=== PATIENT | female | born 1975 | race Caucasian/White ===

== ENCOUNTER 2023-03-05 20:22 | Emergency (ER) | payer OTHER, SELFPAY ==
[2023-03-05 20:25] VITALS: BP 179/99; PULSE 95; RESP 18; TEMP 36.8; O2SAT 97; BMI 48.1
--- NOTE | 2023-03-05 20:45 | CT_ITS ---
The [address] [address] Patient Name: KONSTANTIN ROBLES MRN: [id number] date: 1975 Sex: F Assigned Patient Location: ER Current Patient Location: ER Accession/Order Number: [id number] Exam Date: 03/05/2023 20:55 Report Date: 03/05/2023 21:30 At the request of: REENA SHELL Procedure: CT abdomen pelvis wo con CT ABDOMEN/PELVIS WITHOUT IV CONTRAST. INDICATION: low back pain/ UTI/ hematuria COMPARISON: There are no other studies available for comparison. TECHNIQUE: Contiguous axial images were obtained from the lung bases to the pelvic floor without intravenous or oral contrast. Coronal and sagittal reformations are provided. FINDINGS: LOWER LUNGS: Clear. LIVER/BILIARY TREE: No discrete lesion. No intrahepatic ductal dilatation. GALLBLADDER: Status post cholecystectomy. CBD: Normal CBD. SPLEEN: Normal in size. PANCREAS: No appreciable peripancreatic fluid. No pancreatic ductal dilatation. No discrete lesion. ADRENALS: Normal. KIDNEYS: No hydronephrosis. No radiopaque calculus. There is a phlebolith in the left hemipelvis posterior to the left UVJ. There is also a phlebolith anterior to the distal left ureter. STOMACH AND BOWEL: There is a small hiatal hernia. No dilated bowel loops. No bowel wall thickening. APPENDIX: Not visualized. PERITONEAL CAVITY: No fluid. There is mild stranding surrounding the urinary bladder. ABDOMINAL WALL: No subcutaneous stranding. No subcutaneous fluid collection. LYMPH NODES: No mesenteric or retroperitoneal lymphadenopathy by CT criteria. ABDOMINAL AORTA: No aneurysm. PELVIS: Decompressed bladder which appears thickened. There is stranding surrounding the bladder. MUSCULOSKELETAL: No acute osseous abnormality. CT/CT abdomen pelvis wo con IMPRESSION: 1. No obstructive uropathy. 2. Findings are suggestive of cystitis. Correlate clinically. Electronically authenticated by: YOUNG CERDA Date: 03/05/2023 21:30
--- NOTE | 2023-03-05 20:47 | ED_ITS ---
Documented by User: REGINO Velasquez 03/05/23 20:56 HPI - General Adult General Chief complaint: Urogenital-Female Stated complaint: POSS UTI/BACK PAIN Time Seen by Provider: 03/05/23 20:23 Source: patient Mode of arrival: walk-in Limitations: no limitations History of Present Illness HPI narrative: Patient is a 47-year-old female presents to the Emergency Room with concerns of urinary tract infection and onset of low back pain. Patient notes symptoms started 3-4 days ago with urgency and discomfort with urination, she initially attributed symptoms to change in her brand of underwear. She denies external rash. States she's had irregular periods for the past several months as she feels she is approaching menopause. Patient presents this evening with concerns of not feeling well and having low back pain is described as a pulsing into her flanks 02/08. She denies any fever or chills. She has not vomited. Patient states her blood pressure goes up with the pain and correlates the discomfort with labor pains. She denies any diarrhea. She reports her current vaginal bleeding is light compared to her normal periods. Previously scheduled for hysterectomy before [facility], but was laid off work. Radiation: Reports back and flank Severity: moderate Quality: Reports aching and constant Pain Consistency: Reports colicky Relieving factors: Reports none Exacerbating factors: Reports movement Associated symptoms: Reports denies other symptoms; Denies nausea/vomiting (+ Decreased appetite) Treatments prior to arrival: Reports other (AZO) Related Data Previous Rx's Medication Instructions Recorded cephalexin 500 mg capsule 500 mg PO TID 7 days #21 caps 03/05/23 Allergies Allergy/AdvReac Type Severity Reaction Status Date / Time vancomycin Allergy Severe Verified 03/05/23 20:29 ciprofloxacin [From Cipro] Allergy Intermediate Verified 03/05/23 20:29 Review of Systems ROS Constitutional Denies: fever or chills Eyes Denies: change in vision Ears, nose, mouth, and throat Denies: throat pain or neck pain Cardiovascular Denies: chest pain Respiratory Reports: shortness of breath (with back pain); Denies: cough or wheezing Gastrointestinal Denies: abdominal pain or nausea Genitourinary Reports: painful urination, urinary frequency, urinary urgency and vaginal bleeding Musculoskeletal Reports: back pain; Denies: neck pain or extremity pain Integumentary/Breast Denies: rash, itching, redness or skin pain Neurological Denies: headache Psychiatric Denies: anxiety or mood swings Hematologic/Lymphatic Denies: easy bruising Exam Narrative Exam Narrative: Nurses notes and vital signs reviewed and patient is not hypoxic. General: The patient appears well and in no apparent distress. + anxious about symptoms Patient is resting comfortably on cart. Skin: Warm, dry, no pallor noted. Head: Normocephalic, atraumatic Neck: Supple, trachea mid-line, no tenderness, no lymphadenopathy Eye: Pupils are equal, round and reactive to light, EOMI Ears, Nose, Mouth, and Throat: external exam unremarkable Cardiovascular: Regular Rate and Rhythm Respiratory: Patient is in no distress, no accessory muscle use, lungs are clear to auscultation, no wheezing, rales or rhonchi. Chest Wall: no tenderness Back: non-tender to mid line L spine and T- spine,+ CVA tenderness + pain in bilateral flanks Musculoskeletal: normal ROM, no tenderness, no swelling GI: Normal bowel sounds, no tenderness to palpation, no masses appreciated. No prominent pulsation. No rebound, guarding, or rigidity noted. Neurological: A&O x4 Psychiatric: Cooperative Constitutional Vital Signs, click to edit/add: Last Vital Signs Temp 98.2 F 03/05/23 20:25 Pulse 95 H 03/05/23 20:25 Resp 18 03/05/23 20:25 BP 142/92 H 03/05/23 22:34 Pulse Ox 97 03/05/23 20:25 O2 Del Method Room Air 03/05/23 20:25 Course Vital Signs Vital signs: Vital Signs Temperature 98.2 F 03/05/23 20:25 Pulse Rate 95 H 03/05/23 20:25 Respiratory Rate 18 03/05/23 20:25 Blood Pressure 179/99 H 03/05/23 20:25 Pulse Oximetry 97 03/05/23 20:25 Oxygen Delivery Method Room Air 03/05/23 20:25 Temperature 98.2 F 03/05/23 20:25 Pulse Rate 95 H 03/05/23 20:25 Respiratory Rate 18 03/05/23 20:25 Blood Pressure 142/92 H 03/05/23 22:34 Pulse Oximetry 97 03/05/23 20:25 Oxygen Delivery Method Room Air 03/05/23 20:25 Medical Decision Making MDM Narrative Medical decision making narrative: Extensive discussion at bedside regarding urinary tract infection versus pyelonephritis versus kidney stone ( constipation less likely). Patient reports never having back pain like this in the past. We discussed indications for CT with hematuria, her urine is discolored from Azo use. Patient agreeable to IV placement and fluids and medication for pain. Lab Data Labs: Lab Results 03/05/23 03/05/23 Range/Units 08:40 20:55 WBC 8.2 (4.0-11.0) 10^3/uL RBC 4.45 (4.20-5.40) 10^6/uL Hgb 11.5 L (12.0-16.0) g/dL Hct 36.0 (36.0-48.0) % MCV 80.9 L (81.0-99.0) fL MCH 25.8 L (26.7-34.0) pg MCHC 31.9 (29.9-35.2) g/dL RDW 17.3 H (11.0-15.0) % Plt Count 360 (150-450) 10^3/uL MPV 9.2 L (9.5-13.5) fL Neut % (Auto) 68.8 (43.0-75.0) % Lymph % (Auto) 22.9 (20.5-60.0) % [place] % (Auto) 5.8 (1.7-12.0) % Eos % (Auto) 1.5 (0.9-7.0) % Baso % (Auto) 0.6 (0.2-2.0) % Neut # (Auto) 5.7 (1.4-6.5) 10^3/uL Lymph # (Auto) 1.9 (1.2-3.8) 10^3/uL [place] # (Auto) 0.5 (0.3-0.8) 10^3/uL Eos # (Auto) 0.1 (0.0-0.7) 10^3/uL Baso # (Auto) 0.1 (0.0-0.1) 10^3/uL Abs Immat Gran (auto) 0.03 (0.00-0.03) 10^3/uL Imm/Tot Granulo (auto) 0.4 (0.0-0.5) % Sodium 144 (136-145) mmol/L Potassium 3.7 (3.5-5.1) mmol/L Chloride 105 (98-107) mmol/L Carbon Dioxide 29.4 (21.0-32.0) mmol/L Anion Gap 13.3 BUN 15.0 (7.0-18.0) mg/dL Creatinine 1.22 H (0.55-1.02) mg/dL Est GFR ( Amer) 57 L (>=60) Est GFR (Non-Af Amer) 47 L (>=60) BUN/Creatinine Ratio 12.3 Glucose 128 H (74-106) mg/dL Calcium 9.2 (8.5-10.1) mg/dL Total Bilirubin 0.3 (0.2-1.0) mg/dL AST 13 L (15-37) U/L ALT 15 (14-59) U/L Alkaline Phosphatase 79 (46-116) U/L Total Protein 7.6 (6.4-8.2) g/dL Albumin 3.4 (3.4-5.0) g/dL Globulin 4.2 g/dL Albumin/Globulin Ratio 0.8 Urine Color Dk. orange (YELLOW) Urine Clarity Clear (CLEAR) Urine pH 5.5 (5.0-9.0) Ur Specific [place] 1.020 (1.005-1.025) Urine Protein 100 A (NEG/TRACE) mg/dL Urine Glucose (UA) 100 A (NEGATIVE) mg/dL Urine Ketones Negative (NEGATIVE) mg/dL Urine Occult Blood Large A (NEGATIVE) Urine Nitrite Positive A (NEGATIVE) Urine Bilirubin Negative (NEGATIVE) Urine Urobilinogen 2.0 A (0.2-1.0) EU/dL Ur Leukocyte Esterase Moderate A (NEGATIVE) Urine RBC 50-75 A (0-2) #/HPF Urine WBC 20-50 A (NONE SEEN) #/HPF Ur Squamous Epith Cells Moderate A (NONE/RARE) #/LPF Urine Crystals None seen (None Seen) #/HPF Urine Bacteria Trace A (NONE SEEN) #/HPF Urine Casts None seen (NONE SEEN) #/LPF Urine Mucus None seen (NONE SEEN) Ur Culture Indicated? Yes Discharge Plan Discharge Chief Complaint: Urogenital-Female Clinical Impression: Cystitis Patient Disposition: Home, Self-Care Time of Disposition Decision: 22:10 Condition: Good Mode of Transportation: Private Vehicle Prescriptions / Home Meds: New cephalexin 500 mg capsule 500 mg PO TID 7 Days Qty: 21 0RF Instructions: Urinary Tract Infection in Women (ED) Stand Alone Forms: Portal Instructions Referrals: Vikash Thapa DO [Physician] - 1 week DELFINA VARGHESE [Physician] - 1 week Discharge Date/Time: 03/05/23 22:35 Documented by User: Katharina Enamorado MD 03/05/23 23:50 HPI - General Adult General Chief complaint: Urogenital-Female Stated complaint: POSS UTI/BACK PAIN Time Seen by Provider: 03/05/23 20:23 Related Data Previous Rx's Medication Instructions Recorded cephalexin 500 mg capsule 500 mg PO TID 7 days #21 caps 03/05/23 Allergies Allergy/AdvReac Type Severity Reaction Status Date / Time vancomycin Allergy Severe Verified 03/05/23 20:29 ciprofloxacin [From Cipro] Allergy Intermediate Verified 03/05/23 20:29 Exam Constitutional Vital Signs, click to edit/add: Last Vital Signs Temp 98.2 F 03/05/23 20:25 Pulse 95 H 03/05/23 20:25 Resp 18 03/05/23 20:25 BP 142/92 H 03/05/23 22:34 Pulse Ox 97 03/05/23 20:25 O2 Del Method Room Air 03/05/23 20:25 Course Vital Signs Vital signs: Vital Signs Temperature 98.2 F 03/05/23 20:25 Pulse Rate 95 H 03/05/23 20:25 Respiratory Rate 18 03/05/23 20:25 Blood Pressure 179/99 H 03/05/23 20:25 Pulse Oximetry 97 03/05/23 20:25 Oxygen Delivery Method Room Air 03/05/23 20:25 Temperature 98.2 F 03/05/23 20:25 Pulse Rate 95 H 03/05/23 20:25 Respiratory Rate 18 03/05/23 20:25 Blood Pressure 142/92 H 03/05/23 22:34 Pulse Oximetry 97 03/05/23 20:25 Oxygen Delivery Method Room Air 03/05/23 20:25 Medical Decision Making MDM Narrative Medical decision making narrative: Extensive discussion at bedside regarding urinary tract infection versus pyelonephritis versus kidney stone ( constipation less likely). Patient reports never having back pain like this in the past. We discussed indications for CT with hematuria, her urine is discolored from Azo use. Patient agreeable to IV placement and fluids and medication for pain. Attending physician attestation I have seen and evaluated this patient. I have reviewed the mid-level provider?s documentation medical decision making and treatment plan. I agree with the mid- level provider?s assessment, and plan. CT scan results show cystitis. Patient was given 1 g of Rocephin IV. She will this discharged home on Keflex. All results discussed with patient. She is nontoxic, and stable for outpatient follow-up and treatment. Patient is aware we we'll send a urine for culture. At this time the patient is without objective evidence of an acute process requiring hospitalization or inpatient management. The patient has remained hemodynamically stable. No additional indication for emergent studies at this time. I answered all questions. Discussed discharge instructions including [place] anticipatory guidance and what should prompt a return to the emergency department, including if they get worse are not getting better or develops any new or concerning symptoms. I've given them specific time frame in which to follow-up, and who to follow-up with. The patient demonstrates understanding. Patient is nontoxic and stable for discharge with outpatient follow-up. This note was created with the assistance of a speech recognition program. Although the intention is to generate documents that actually reflects the content of the visit, no guarantees can be provided that every mistake has been identified and corrected by editing. Lab Data Lab results reviewed: Yes I reviewed the patient's lab results Labs: Lab Results 03/05/23 03/05/23 Range/Units 08:40 20:55 WBC 8.2 (4.0-11.0) 10^3/uL RBC 4.45 (4.20-5.40) 10^6/uL Hgb 11.5 L (12.0-16.0) g/dL Hct 36.0 (36.0-48.0) % MCV 80.9 L (81.0-99.0) fL MCH 25.8 L (26.7-34.0) pg MCHC 31.9 (29.9-35.2) g/dL RDW 17.3 H (11.0-15.0) % Plt Count 360 (150-450) 10^3/uL MPV 9.2 L (9.5-13.5) fL Neut % (Auto) 68.8 (43.0-75.0) % Lymph % (Auto) 22.9 (20.5-60.0) % [place] % (Auto) 5.8 (1.7-12.0) % Eos % (Auto) 1.5 (0.9-7.0) % Baso % (Auto) 0.6 (0.2-2.0) % Neut # (Auto) 5.7 (1.4-6.5) 10^3/uL Lymph # (Auto) 1.9 (1.2-3.8) 10^3/uL [place] # (Auto) 0.5 (0.3-0.8) 10^3/uL Eos # (Auto) 0.1 (0.0-0.7) 10^3/uL Baso # (Auto) 0.1 (0.0-0.1) 10^3/uL Abs Immat Gran (auto) 0.03 (0.00-0.03) 10^3/uL Imm/Tot Granulo (auto) 0.4 (0.0-0.5) % Sodium 144 (136-145) mmol/L Potassium 3.7 (3.5-5.1) mmol/L Chloride 105 (98-107) mmol/L Carbon Dioxide 29.4 (21.0-32.0) mmol/L Anion Gap 13.3 BUN 15.0 (7.0-18.0) mg/dL Creatinine 1.22 H (0.55-1.02) mg/dL Est GFR ( Amer) 57 L (>=60) Est GFR (Non-Af Amer) 47 L (>=60) BUN/Creatinine Ratio 12.3 Glucose 128 H (74-106) mg/dL Calcium 9.2 (8.5-10.1) mg/dL Total Bilirubin 0.3 (0.2-1.0) mg/dL AST 13 L (15-37) U/L ALT 15 (14-59) U/L Alkaline Phosphatase 79 (46-116) U/L Total Protein 7.6 (6.4-8.2) g/dL Albumin 3.4 (3.4-5.0) g/dL Globulin 4.2 g/dL Albumin/Globulin Ratio 0.8 Urine Color Dk. orange (YELLOW) Urine Clarity Clear (CLEAR) Urine pH 5.5 (5.0-9.0) Ur Specific [place] 1.020 (1.005-1.025) Urine Protein 100 A (NEG/TRACE) mg/dL Urine Glucose (UA) 100 A (NEGATIVE) mg/dL Urine Ketones Negative (NEGATIVE) mg/dL Urine Occult Blood Large A (NEGATIVE) Urine Nitrite Positive A (NEGATIVE) Urine Bilirubin Negative (NEGATIVE) Urine Urobilinogen 2.0 A (0.2-1.0) EU/dL Ur Leukocyte Esterase Moderate A (NEGATIVE) Urine RBC 50-75 A (0-2) #/HPF Urine WBC 20-50 A (NONE SEEN) #/HPF Ur Squamous Epith Cells Moderate A (NONE/RARE) #/LPF Urine Crystals None seen (None Seen) #/HPF Urine Bacteria Trace A (NONE SEEN) #/HPF Urine Casts None seen (NONE SEEN) #/LPF Urine Mucus None seen (NONE SEEN) Ur Culture Indicated? Yes Discharge Plan Discharge Chief Complaint: Urogenital-Female Clinical Impression: Cystitis Patient Disposition: Home, Self-Care Time of Disposition Decision: 22:10 Condition: Good Mode of Transportation: Private Vehicle Prescriptions / Home Meds: New cephalexin 500 mg capsule 500 mg PO TID 7 Days Qty: 21 0RF Instructions: Urinary Tract Infection in Women (ED) Stand Alone Forms: Portal Instructions Referrals: Vikash Thapa DO [Physician] - 1 week DELFINA VARGHESE [Physician] - 1 week Discharge Date/Time: 03/05/23 22:35
[2023-03-05 20:55] LABS: Bilirubin Urine NEGATIVE (NEGATIVE); Blood Urine LARGE (NEGATIVE); Clarity Urine CLEAR (CLEAR); Color Urine DK. ORANGE (YELLOW); Glucose Urine UA 100 mg/dL (NEGATIVE); Ketones Urine NEGATIVE (NEGATIVE); Leukocyte Esterase Urine MODERATE (NEGATIVE); Nitrite Urine POSITIVE (NEGATIVE); Protein Urine 100 mg/dL (NEG/TRACE); pH Urine 5.5 (5.0-9.0)
[2023-03-05 21:05] LABS: Basophils Absolute Auto 0.1 10^3/uL (0.0-0.1); Basophils Percent Auto 0.6 % (0.2-2.0); Eosinophils Absolute Auto 0.1 10^3/uL (0.0-0.7); Eosinophils Percent Auto 1.5 % (0.9-7.0); Hemoglobin 11.5 g/dL (12.0-16.0); Immature Granulocytes Abs Auto 0.03 10^3/uL (0.00-0.03); Immature Granulocytes Pct Auto 0.4 % (0.0-0.5); Lymphocytes Absolute Auto 1.9 10^3/uL (1.2-3.8); Lymphocytes Percent Auto 22.9 % (20.5-60.0); Mean Corpuscular HGB Conc 31.9 g/dL (29.9-35.2); Mean Corpuscular Hemoglobin 25.8 pg (26.7-34.0); Mean Corpuscular Volume 80.9 fL (81.0-99.0); Mean Platelet Volume 9.2 fL (9.5-13.5); Monocytes Absolute Auto 0.5 10^3/uL (0.3-0.8); Monocytes Percent Auto 5.8 % (1.7-12.0); Neutrophils Absolute Auto 5.7 10^3/uL (1.4-6.5); Neutrophils Percent Auto 68.8 % (43.0-75.0); Platelet Count 360 10^3/uL (150-450); Red Blood Count 4.45 10^6/uL (4.20-5.40); Red Cell Distribution Width 17.3 % (11.0-15.0); White Blood Count 8.2 10^3/uL (4.0-11.0)
[2023-03-05 21:07] LABS: Urine Microscopic Indicated YES
[2023-03-05 21:10] LABS: Bacteria Urine TRACE #/HPF (NONE SEEN); Cast Seen? NONE SEEN #/LPF (NONE SEEN); Crystals Seen? None Seen #/HPF (None Seen); Mucus Urine NONE SEEN (NONE SEEN); RBC Urine 50-75 #/HPF (0-2); Squamous Epithelial Cell Urine MODERATE #/LPF (NONE/RARE); WBC Urine 20-50 #/HPF (NONE SEEN)
[2023-03-05 21:11] LABS: Urine Culture Indicated YES
--- NOTE | 2023-03-05 21:17 | PC.NURSE ---
pt presents to ED because pt states that since she has had uti symptoms, burning on urination, frequency, urgency. pt started taking cranberry juice and OZO with no relief of symptoms. pt states that she had her period 2 weeks ago but started noticing blood in her urine on and abnormal colored discharge. pt states she is also starting to have pain in her back as well.
[2023-03-05 21:18] LABS: Alanine Aminotransferase 15 U/L (14-59); Albumin Globulin Ratio 0.8; Albumin Level 3.4 g/dL (3.4-5.0); Alkaline Phosphatase 79 U/L (46-116); Anion Gap 13.3; Aspartate Amino Transferase 13 U/L (15-37); BUN Creatinine Ratio 12.3; Bilirubin Total 0.3 mg/dL (0.2-1.0); Calcium 9.2 mg/dL (8.5-10.1); Carbon Dioxide 29.4 mmol/L (21.0-32.0); Chloride 105 mmol/L (98-107); Estimated GFR (African America 57 (>=60); Estimated GFR (Non-African Ame 47 (>=60); Globulin 4.2 g/dL; Glucose 128 mg/dL (74-106); Potassium 3.7 mmol/L (3.5-5.1); Sodium 144 mmol/L (136-145); Total Protein 7.6 g/dL (6.4-8.2)
[2023-03-05] MEDS: 0.9 % SODIUM CHLORIDE 1,000 ML 999 ML IV (21:35)
[2023-03-05] MEDS: KETOROLAC TROMETHAMINE 30 MG/ML VIAL IVP (21:40)
[2023-03-05] MEDS: ONDANSETRON PF 4 MG/2 ML VIAL IV (21:40)
[2023-03-05] MEDS: CEFTRIAXONE 1,000 MG in 0.9 % SODIUM CHLORIDE 50 ML 50 MG IV (21:54)
[2023-03-05 22:34] VITALS: BP 142/92
--- NOTE | 2023-03-10 07:45 | PC.NURSE ---
03/10/23 0745 Allen Garcia reviewed urine C+S on 03/09/23 nno at this time. Libby Wilkins RN
== END 2023-03-05 22:35 | disposition home or self-care (01) ==
PROVIDERS: Personal Emergency Response Attendant; Emergency Provider Emergency Medicine
DX: N30.90 Cystitis, unspecified without hematuria (principal)
CPT/HCPCS: 36415; 74176; 80053; 81001; 85025; 87086; 87150; 87186; 96374; 96375; 99285

== ENCOUNTER 2023-04-06 10:07 | Emergency (ER) | payer OTHER, SELFPAY ==
[2023-04-06 10:13] VITALS: BP 145/85; PULSE 78; RESP 16; TEMP 37; O2SAT 98; BMI 48.1
--- NOTE | 2023-04-06 10:29 | ED.FEMALEGU1 ---
HPI - Female Genitourinary General Chief complaint: Vaginal Bleeding Stated complaint: abnormal vaginal bleeding Time Seen by Provider: 04/06/23 10:16 Source: patient Mode of arrival: walk-in Limitations: no limitations History of Present Illness HPI Narrative: Patient presents with heavy vaginal bleeding - heavier than her normal menstrual periods. She is in her 2nd day of menstruation and admits to associated pelvic pain/cramping. She also described vaginal discharge. She doubted she got but cannot confirm. No syncope, chest pain or shortness of breath. her [employer] is Dr Thapa - she called the office and he is unavailable today so she came to the ED for evaluation. Related Data Previous Rx's Medication Instructions Recorded cephalexin 500 mg capsule 500 mg PO TID 7 days #21 caps 03/05/23 Allergies Allergy/AdvReac Type Severity Reaction Status Date / Time vancomycin Allergy Severe Verified 03/05/23 20:29 ciprofloxacin [From Cipro] Allergy Intermediate Verified 03/05/23 20:29 PFSH PFSH Social History Smoking status: Smoker, status unknown Exam Narrative Exam Narrative: Nurses notes and vital signs reviewed and patient is not hypoxic. afebrile General: Well-appearing and in no apparent distress. Skin: Warm, dry, no pallor noted. No rash. Head: Normocephalic, atraumatic. Eye: Pupils are equal, round and EOMI. No scleral icterus. Cardiovascular: Regular Rate and Rhythm without murmur, gallop or rub. Respiratory: No accessory muscle use or respiratory distress. Lungs are clear to auscultation, no wheezing, rales or rhonchi Back: No midline thoracic or lumbar vertebral tenderness. No CVA tenderness Musculoskeletal: normal ROM GI: Abdomen is soft, non-distended. Normal bowel sounds. No tenderness to palpation. No rebound, guarding, or rigidity noted. Neurological: A&O x4. No cranial nerve dysfunction observed. No truncal ataxia. Moves all extremities. Sensation intact. Psychiatric: Cooperative and interactive. Normal mood and affect. Constitutional Vital Signs, click to edit/add: Last Vital Signs Temp 98.6 F 04/06/23 10:13 Pulse 78 04/06/23 10:13 Resp 16 04/06/23 10:13 BP 145/85 H 04/06/23 10:13 Pulse Ox 98 04/06/23 10:13 O2 Del Method Room Air 04/06/23 10:13 Course Vital Signs Vital signs: Vital Signs Temperature 98.6 F 04/06/23 10:13 Pulse Rate 78 04/06/23 10:13 Respiratory Rate 16 04/06/23 10:13 Blood Pressure 145/85 H 04/06/23 10:13 Pulse Oximetry 98 04/06/23 10:13 Oxygen Delivery Method Room Air 04/06/23 10:13 Temperature 98.6 F 04/06/23 10:13 Pulse Rate 78 04/06/23 10:13 Respiratory Rate 16 04/06/23 10:13 Blood Pressure 145/85 H 04/06/23 10:13 Pulse Oximetry 98 04/06/23 10:13 Oxygen Delivery Method Room Air 04/06/23 10:13 MDM - Female Genitourinary MDM Narrative Medical decision making narrative: blood drawn and sent for testing. Lab Data Labs: Lab Results 04/06/23 Range/Units 10:42 WBC 7.1 (4.0-11.0) 10^3/uL RBC 4.12 L (4.20-5.40) 10^6/uL Hgb 10.9 L (12.0-16.0) g/dL Hct 34.6 L (36.0-48.0) % MCV 84.0 (81.0-99.0) fL MCH 26.5 L (26.7-34.0) pg MCHC 31.5 (29.9-35.2) g/dL RDW 16.5 H (11.0-15.0) % Plt Count 283 (150-450) 10^3/uL MPV 9.6 (9.5-13.5) fL Neut % (Auto) 65.8 (43.0-75.0) % Lymph % (Auto) 24.5 (20.5-60.0) % [place] % (Auto) 7.2 (1.7-12.0) % Eos % (Auto) 1.5 (0.9-7.0) % Baso % (Auto) 0.7 (0.2-2.0) % Neut # (Auto) 4.7 (1.4-6.5) 10^3/uL Lymph # (Auto) 1.7 (1.2-3.8) 10^3/uL [place] # (Auto) 0.5 (0.3-0.8) 10^3/uL Eos # (Auto) 0.1 (0.0-0.7) 10^3/uL Baso # (Auto) 0.1 (0.0-0.1) 10^3/uL Abs Immat Gran (auto) 0.02 (0.00-0.03) 10^3/uL Imm/Tot Granulo (auto) 0.3 (0.0-0.5) % PT 10.0 (9.0-11.6) sec INR 0.94 APTT 27.1 (22.3-36.2) sec Sodium 136 (136-145) mmol/L Potassium 3.9 (3.5-5.1) mmol/L Chloride 103 (98-107) mmol/L Carbon Dioxide 26.3 (21.0-32.0) mmol/L Anion Gap 10.6 BUN 17.0 (7.0-18.0) mg/dL Creatinine 0.80 (0.55-1.02) mg/dL Est GFR ( Amer) >60 (>=60) Est GFR (Non-Af Amer) >60 (>=60) BUN/Creatinine Ratio 21.2 Glucose 97 (74-106) mg/dL Calcium 8.8 (8.5-10.1) mg/dL Total Bilirubin 0.4 (0.2-1.0) mg/dL AST 18 (15-37) U/L ALT 32 (14-59) U/L Alkaline Phosphatase 67 (46-116) U/L Total Protein 7.4 (6.4-8.2) g/dL Albumin 3.5 (3.4-5.0) g/dL Globulin 3.9 g/dL Albumin/Globulin Ratio 0.9 Serum HCG, Qual Negative (NEGATIVE) Discharge Plan Discharge Chief Complaint: Vaginal Bleeding Clinical Impression: Dysfunctional uterine bleeding Patient Disposition: Home, Self-Care Time of Disposition Decision: 11:26 Prescriptions / Home Meds: No Action cephalexin 500 mg capsule 500 mg PO TID 7 Days Qty: 21 0RF Instructions: Abnormal (Dysfunctional) Uterine Bleeding (ED) Stand Alone Forms: Portal Instructions Referrals: Physician,Non-Staff, MD [Primary Care Provider] - 1 week
[2023-04-06 10:52] LABS: Basophils Absolute Auto 0.1 10^3/uL (0.0-0.1); Basophils Percent Auto 0.7 % (0.2-2.0); Eosinophils Absolute Auto 0.1 10^3/uL (0.0-0.7); Eosinophils Percent Auto 1.5 % (0.9-7.0); Hematocrit 34.6 % (36.0-48.0); Hemoglobin 10.9 g/dL (12.0-16.0); Immature Granulocytes Abs Auto 0.02 10^3/uL (0.00-0.03); Immature Granulocytes Pct Auto 0.3 % (0.0-0.5); Lymphocytes Absolute Auto 1.7 10^3/uL (1.2-3.8); Lymphocytes Percent Auto 24.5 % (20.5-60.0); Mean Corpuscular HGB Conc 31.5 g/dL (29.9-35.2); Mean Corpuscular Hemoglobin 26.5 pg (26.7-34.0); Mean Platelet Volume 9.6 fL (9.5-13.5); Monocytes Absolute Auto 0.5 10^3/uL (0.3-0.8); Monocytes Percent Auto 7.2 % (1.7-12.0); Neutrophils Absolute Auto 4.7 10^3/uL (1.4-6.5); Neutrophils Percent Auto 65.8 % (43.0-75.0); Platelet Count 283 10^3/uL (150-450); Red Blood Count 4.12 10^6/uL (4.20-5.40); Red Cell Distribution Width 16.5 % (11.0-15.0); White Blood Count 7.1 10^3/uL (4.0-11.0)
[2023-04-06 11:04] LABS: HCG Qualitative NEGATIVE (NEGATIVE)
[2023-04-06 11:07] LABS: Alanine Aminotransferase 32 U/L (14-59); Albumin Globulin Ratio 0.9; Albumin Level 3.5 g/dL (3.4-5.0); Alkaline Phosphatase 67 U/L (46-116); Anion Gap 10.6; Aspartate Amino Transferase 18 U/L (15-37); BUN Creatinine Ratio 21.2; Bilirubin Total 0.4 mg/dL (0.2-1.0); Calcium 8.8 mg/dL (8.5-10.1); Carbon Dioxide 26.3 mmol/L (21.0-32.0); Chloride 103 mmol/L (98-107); Estimated GFR (African America >60 (>=60); Estimated GFR (Non-African Ame >60 (>=60); Globulin 3.9 g/dL; Glucose 97 mg/dL (74-106); INR 0.94; Partial Thromboplastin Time 27.1 sec (22.3-36.2); Potassium 3.9 mmol/L (3.5-5.1); Sodium 136 mmol/L (136-145); Total Protein 7.4 g/dL (6.4-8.2)
== END 2023-04-06 11:34 | disposition home or self-care (01) ==
PROVIDERS: Emergency Provider Emergency Medicine
DX: N93.8 Other specified abnormal uterine and vaginal bleeding (principal)
CPT/HCPCS: 36415; 80053; 84703; 85025; 85610; 85730; 99283

== ENCOUNTER 2023-04-18 16:14 | Outpatient (OUT) | payer OTHER, SELFPAY ==
[2023-04-18 16:31] LABS: Basophils Absolute Auto 0.1 10^3/uL (0.0-0.1); Basophils Percent Auto 0.9 % (0.2-2.0); Eosinophils Absolute Auto 0.2 10^3/uL (0.0-0.7); Eosinophils Percent Auto 2.4 % (0.9-7.0); Hematocrit 33.3 % (36.0-48.0); Hemoglobin 10.6 g/dL (12.0-16.0); Immature Granulocytes Abs Auto 0.03 10^3/uL (0.00-0.03); Immature Granulocytes Pct Auto 0.4 % (0.0-0.5); Lymphocytes Absolute Auto 2.4 10^3/uL (1.2-3.8); Mean Corpuscular HGB Conc 31.8 g/dL (29.9-35.2); Mean Corpuscular Hemoglobin 26.3 pg (26.7-34.0); Mean Corpuscular Volume 82.6 fL (81.0-99.0); Mean Platelet Volume 9.4 fL (9.5-13.5); Monocytes Absolute Auto 0.6 10^3/uL (0.3-0.8); Monocytes Percent Auto 7.1 % (1.7-12.0); Neutrophils Absolute Auto 4.5 10^3/uL (1.4-6.5); Neutrophils Percent Auto 58.2 % (43.0-75.0); Platelet Count 416 10^3/uL (150-450); Red Blood Count 4.03 10^6/uL (4.20-5.40); Red Cell Distribution Width 15.8 % (11.0-15.0); White Blood Count 7.8 10^3/uL (4.0-11.0)
[2023-04-18 16:39] LABS: Estimated Average Glucose 117 mg/dL; Glycohemoglobin A1C 5.7 % (4.5-6.2)
[2023-04-18 16:43] LABS: INR 0.95; Partial Thromboplastin Time 27.6 sec (22.3-36.2); Prothrombin Time 10.1 sec (9.0-11.6)
[2023-04-18 17:27] LABS: HCG Quantitative <1 mIU/mL; Thyroid Stimulating Hormone 3.132 uIU/mL (0.358-3.740)
[2023-04-18 17:29] LABS: Free T4 0.91 ng/dL (0.76-1.46)
== END 2023-04-18 16:15 | disposition home or self-care (01) ==
LOC: LAB 16:15
PROVIDERS: Visit Provider Obstetrics & Gynecology
DX: N92.1 Excessive and frequent menstruation with irregular cycle (principal)
CPT/HCPCS: 36415; 83036; 84439; 84443; 84702; 85025; 85610; 85730

== ENCOUNTER 2023-04-24 14:32 | Outpatient (OUT) | payer OTHER, SELFPAY ==
--- NOTE | 2023-04-24 14:34 | US_ITS ---
The [address] [address] Patient Name: KONSTANTIN ROBLES MRN: [id number] date: 1975 Sex: F Assigned Patient Location: Current Patient Location: Accession/Order Number: [id number] Exam Date: 04/24/2023 14:34 Report Date: 04/25/2023 00:19 At the request of: LUCIANA BARRIOS Procedure: US pelvis w/ transvaginal EXAM: US pelvis w/ transvaginal HISTORY: MENORRHAGIA COMPARISON: None. TECHNIQUE: Pelvic ultrasound performed using transvaginal technique FINDINGS: The uterus measures 10 x 6.2 x 7.5 cm. It is heterogeneous. Endometrium measures about 1.4 cm probable uterine fibroid measuring 2.3 cm. Body habitus limits sensitivity. Right ovary appears grossly normal. Left ovary not well seen. US/US pelvis w/ transvaginal IMPRESSION: Heterogeneous slightly thickened endometrium. Correlation with menstrual cycle is advised. Hypoplasia not categorically excluded. Probable anterior uterine fibroid measuring 3 cm. Left ovary is not seen. Right ovary appears grossly normal but body habitus does limit sensitivity Electronically authenticated by: KATE ROPER Date: 04/25/2023 00:19
== END 2023-04-24 14:33 | disposition home or self-care (01) ==
LOC: US 14:33
PROVIDERS: Visit Provider Obstetrics & Gynecology
DX: N92.1 Excessive and frequent menstruation with irregular cycle (principal); D25.9 Leiomyoma of uterus, unspecified
CPT/HCPCS: 76830; 76856

== ENCOUNTER 2023-05-18 09:59 | Outpatient (OUT) | payer OTHER, SELFPAY ==
--- NOTE | 2023-05-18 10:11 | ECG_ITS ---
The [facility] Test Date: 2023-05-18 Pat Name: KONSTANTIN ROBLES Department: Room: - Gender: Female Outreach Assistant: : 1975 Requested By: LUCIANA BARRIOS Order Number: [id number] Reading MD: PAULETTE PENG Measurements Intervals [place] Rate: 64 P: -11 NE: 183 QRS: 23 QRSD: 106 T: 29 QT: 407 QTc: 420 Interpretive Statements SINUS RHYTHM No previous ECG available for comparison Electronically Signed On 05-20-2023 19:29:42 EST by PAULETTE PENG
== END 2023-05-18 10:00 | disposition home or self-care (01) ==
LOC: PST 09:59
PROVIDERS: Visit Provider Obstetrics & Gynecology
DX: Z01.810 Encounter for preprocedural cardiovascular examination (principal); R93.89 Abnormal findings on diagnostic imaging of other specified body structures; D25.9 Leiomyoma of uterus, unspecified; R10.2 Pelvic and perineal pain
CPT/HCPCS: 93005

== ENCOUNTER 2023-07-06 13:04 | Outpatient (OUT) | payer OTHER, SELFPAY ==
--- OUTSIDE RECORDS SUMMARY | 2023-07-06 13:10 | XMS_ITS | CCD ---
Author Name Unknown Address [address] [facility] [address] [place] [address] Organization [facility] Care Team Providers Care Analog Ic Design Engineer Name Role Phone SOPHIE, DR CHOWDHURY Admitting Unavailable SOPHIE, DR CHOWDHURY Attending Unavailable SOPHIE, DR CHOWDHURY Primary Care Unavailable SOPHIE, DR CHODWHURY Consulting Unavailable SOPHIE, DR CHOWDHURY Admitting Unavailable SOPHIE, DR CHOWDHURY Attending Unavailable SOPHIE, DR CHOWDHURY Primary Care Unavailable SOPHIE, DR CHOWDHURY Consulting Unavailable MISC, DR MEJÍA Admitting Unavailable MISC, DR MEJÍA Attending Unavailable REQUEST, DR VANG LISTED Primary Care Unavaila ble MISC, DR MEJÍA Consulting Unavailable SOPHIE, DR CHOWDHURY Admitting Unavailable SOPHIE, DR CHOWDHURY Attending Unavailable REQUEST, DR VANG LISTED Primary Care Unavaila ble SOPHIE, DR CHOWDHURY Consulting Unavailable SOPHIE, DR CHOWDHURY Admitting Unavailable SOPHIE, DR CHOWDHURY Attending Unavailable REQUEST, DR VANG LISTED Primary Care Unavaila ble SOPHIE, DR CHOWDHURY Consulting Unavailable SOPHIE, DR CHOWDHURY Admitting Unavailable SOPHIE, DR CHOWDHURY Attending Unavailable REQUEST, DR VANG LISTED Primary Care Unavaila ble SOPHIE, DR CHOWDHURY Consulting Unavailable ZIEBER, DR ERON Diana Consulting Unavailable ALEKSANDAR, DR COX Admitting Unavailable ALEKSANDAR, DR COX Attending Unavailable MISC, DR MEJÍA Primary Care Unavailable ALEKSANDAR, DR COX Consulting Unavailable SUMAYA, DR VALLES Consulting Unavailable YOLIS WAYNE Consulting Unavailable SOPHIE, DR CHOWDHURY Admitting Unavailable SOPHIE, DR CHOWDHURY Attending Unavailable SOPHIE, DR CHOWDHURY Primary Care Unavailable Ginty, Nicki Unavailable Sis Pratt Unavailable NO FAMILY, PHYSICIAN Primary Care Provider Unava DOT Ramey Attending Provider MD Marko Portillo II Attending Provider Marko Portillo II Unavailable [phone] NO FAMILY, PHYSICIAN Primary Care Unavailable Jackson Mcleod Admitting Unavailable Jackson Mcleod Attending Unavailable NO FAMILY, PHYSICIAN Primary Care Unavailable Sis Pratt Admitting Unavailable Sis Pratt Attending Unavailable NO FAMILY, PHYSICIAN Primary Care Unavailable Marko Portillo II Admitting UnavailMarko Frank II Attending UnavailGRIFFIN Mccarthy Attending Unavailable Allergies Allergy Classification Reported Allergen(s) Allergy Type Date of Onset Reaction(s) Facility (1 source) Ciprofloxacin Drug Allergy 8 [facility] Repository (1 source) Vancomycin Drug Allergy 8 [facility] Repository (6 sources) Ciprofloxacin Drug Allergy hives and itching [facility] [employer] Other (6 sources) Vancomycin Drug Allergy hives and itching [employer] Other Medications Current Medications Medication Drug Class(es) Dates Sig (Normalized) Sig (Original) [id number] 200 actuat albuterol 0.09 mg/actuat metered dose inhaler (1 source) beta2-Adrenergic Agonist Start: 05-11-2021 take 2 puff(s) by inhalation four times daily as needed Albuterol Sulfate HFA 108 (90 Base) MCG/ACT 2 puffs Inhalation qid prn May, Active Citalopram (2 sources) Serotonin Reuptake Inhibitor Citalopram Hydrobromide Active Crutches Underarm Crutches (4 sources) Start: 04-04-2022 Crutches Underarm Crutches Apr, Active dextromethorphan hydrobromide 15 mg / guaiFENesin 400 mg / pseudoephedrine hydrochloride 60 mg oral tablet (1 source) alpha-Adrenergic Agonist, Uncompetitive R-edrnnr-B-aspartat e Receptor Antagonist, Sigma-1 Agonist Start: 05-11-2021 Capmist DM 60-15-400 MG 1 tablet at 4 hour intervals as needed Orally Four times a day for 10 day(s) May, Active dextromethorphan hydrobromide 1.5 mg/ml / pyrilamine maleate 1.5 mg/ml oral solution (2 sources) Uncompetitive V-geydlh-O-aspartat e Receptor Antagonist, Sigma-1 Agonist Start: 05-06-2021 take 20 mL by mouth every eight hours [place] DM 7.5-7.5 MG/5ML 20 mL Orally every 8 hours for 5 days May, Active fluticasone propionate 0.05 mg/actuat metered dose nasal spray (2 sources) Corticosteroid Start: 05-06-2021 take 1 spray(s) nasal route once daily Flonase Allergy Relief 50 MCG/ACT 1 spray in each nostril Nasally Once a day for 14 day(s) May, Active ibuprofen 800 mg oral tablet (3 sources) Nonsteroidal Anti-inflammatory Drug take 1 tablet by mouth every eight hours at mealtime as needed Ibuprofen 800 MG 1 tablet with food or milk as needed Orally every 8 hrs Active methylPREDNISolone 4 mg oral tablet (2 sources) Corticosteroid Start: 07-30-2019 Medrol 4 MG as directed Orally for 6 days Jul, Active predniSONE 20 mg oral tablet (1 source) Start: 05-11-2021 take 1 tablet by mouth every twelve hours predniSONE 20 MG 1 tablet Orally bid for 5 day(s) May, Active Tylenol Arthritis Pain (3 sources) Tylenol Arthritis Pain Active Completed/Discontinued Medications Medication Drug Class(es) Dates Sig (Normalized) Sig (Original) triamcinolone acetonide 40 mg/ml injectable suspension (1 source) Corticosteroid Start: 04-19-2022 Kenalog-40 Apr, 120 mg Problems Active Problems Problem Classification Problem Date Documented Da te Episodic/Chronic Menstrual disorders (5 sources) Excessive and frequent menstruation with regular cycle; Translations: [EXCESS FREQ MENSTRUATION W/REG CYCL] Onset: 08-19-2020 Chronic Other non-traumatic joint disorders (3 sources) Pain in left knee Episodic Other screening for suspected conditions (not mental disorders or infectious disease) (1 source) Abnormal findings on diagnostic imaging of other specified body structures; Translations: [ABNORML FIND DX IMG OTH BODY STRUC] Onset: 10-14-2020 Chronic Other upper respiratory infections (4 sources) Acute upper respiratory infection, unspecified; Translations: [ACUTE UP RESPIRATORY INFECTION UNS] Onset: 05-06-2021 Resolved: 05-11-2021 Episodic Syncope (1 source) Syncope and collapse; Translations: [SYNCOPE AND COLLAPSE] Onset: 06-07-2021 Episodic Unclassified (2 sources) COUGH, UNSPECIFIED; Translations: [COUGH, UNSPECIFIED] Onset: 06-07-2021 Unclassified (4 sources) CONTACT W/AND (SUSP) EXPOS COVID-19; Translations: [CONTACT W/AND (SUSP) EXPOS COVID-19] Onset: 05-17-2021 Unclassified (1 source) Pain in left knee; Translations: [Pain in left knee] Onset: 04-04-2022 Unclassified (1 source) Z20.822 - Contact with and (suspected) exposure to COVID-19; Translations: [Z20.822 - Contact with and (suspected) exposure to COVID-19] Onset: 07-15-2021 Past or Other Problems Problem Classification Problem Date Documented Date Episodic/Chronic Immunizations and screening for infectious disease (2 sources) Encounter for screening for human papillomavirus (HPV); Translations: [Contact with and (suspected) exposure to other viral communicable diseases] Onset: 07-27-2020 Resolved: 05-06-2021 Episodic Other female genital disorders (1 source) Noninflammatory disorder of uterus, unspecified; Translations: [NONINFLAMMATORY DISORDER UTERUS UNS] Onset: 08-26-2020 Episodic Other female genital disorders (1 source) Other specified noninflammatory disorders of cervix uteri; Translations: [OTH SPEC NONINFLAMM D/O CERV UTERI] Onset: 08-26-2020 Episodic Other screening for suspected conditions (not mental disorders or infectious disease) (4 sources) Encounter for screening for malignant neoplasm of cervix; Translations: [ENC SCREENING MALIG NEOPLASM CERV] Onset: 07-22-2020 Episodic Unclassified (1 source) COUGH, UNSPECIFIED; Translations: [COUGH, UNSPECIFIED] Onset: 06-05-2021 Unclassified (1 source) CONTACT W/AND (SUSP) EXPOS COVID-19; Translations: [CONTACT W/AND (SUSP) EXPOS COVID-19] Onset: 05-12-2021 Results Test Name Value Interpretation Reference Range Facility XR knee LT 4V*on 04-06-2022 XR knee LT 4V* [facility] [address] XRay Report Signed Patient: Konstantin Bartlett MR#: [id number] 978 : 1975 Acct:[id number] Age/Sex: 46 / F ADM Date: 04/06/22 Loc: [facility] [place]: Type: [facility] Attending Dr: Marko Portillo II, MD Copies to: Marko Portillo MD Ordering Provider: Marko Portillo MD Date of Service: 04/06/22 XR/XR knee LT 4V*: Acute pain of left knee ([id number]) XR/XR pelvis 1-2V: Acute pain of left knee CLINICAL DATA: Worsening left knee pain, greatest with weightbearing and twisting. AP PELVIS: COMPARISON: None Assessment is slightly limited by body habitus and technique. No fracture, dislocation or bony destruction is seen. The hip joint spaces are symmetric. There is no significant arthritic change. The SI joints are intact. There are no soft tissue abnormalities. XR/XR pelvis 1-2V IMPRESSION: NO ACUTE BONY FINDINGS. LEFT KNEE - 4 views COMPARISON: 04/04/2022 Standing AP, lateral, skiers and patellar views were obtained. There is osteopenia. There are no acute fractures or dislocation. There is no significant patellar subluxation. No disproportionate joint space narrowing is identified. There is slight squaring off the articular margins. There are small enthesophytes at the insertion of quadriceps tendon and origin and insertion of the patellar tendon. There is no significant knee effusion. Soft tissues are diffusely prominent related to body habitus. IMPRESSION: MINOR DEGENERATIVE CHANGE. NO ACUTE BONY FINDINGS. Impression dictated by: Nohemy Loza M.D.04/06/2022 3:16 PM Dictation Location: [place] [address] Transcribed By: [facility] 04/06/22 151 Dictated By: Nohemy Loza MD 04/06/22 151 Signed By: 04/06/22 151 Normal [facility] XR knee LT 4V*on 04-04-2022 XR knee LT 4V* [facility] [place] [address] [place] [address] XRay Report Signed Patient: Konstantin Bartlett MR#: [id number] 978 : 1975 Acct:[id number] Age/Sex: 46 / F ADM Date: 04/04/22 Loc: [facility] Room: Type: [facility] Attending Dr: Sis CHRIS Copies to: DOT Mackenzie Ordering Provider: DOT Mackenzie Date of Service: 04/04/22 XR/XR knee LT 4V*: Acute pain of left knee XR knee LT 4V* 04/04/2022 12:28 PM SIGNS AND SYMPTOMS: Left knee pain PROTOCOL: Frontal, lateral, and oblique radiographs of the left knee COMPARISON: None FINDINGS: There is mild narrowing of the weightbearing and patellofemoral joint spaces. There is enthesophyte formation at the poles of the patella. There is no joint effusion or soft tissue swelling. No fracture or dislocation. XR/XR knee LT 4V* IMPRESSION: Mild tricompartmental degenerative changes are noted. No acute bony injury. Impression dictated by: Jasen Starkey M.D.04/04/2022 12:53 PM Dictation Location: [place] [address] Transcribed By: [facility] 04/04/22 1253 Dictated By: Jasen Starkey II, MD 04/04/22 1249 Signed By: 04/04/22 1253 [facility] XR knee LT 4V* [facility] [employer] Other XR knee LT 4V* [facility] [employer] Other XR knee LT 4V* [address] [facility] [employer] Other XR knee LT 4V* [place] [address] No cox [employer]anson [employer] Other XR knee LT 4V* XRay Report [employer] Other XR knee LT 4V* Signed [employer] Other XR knee LT 4V* Patient: Konstantin Bartlett MR#: [id number] [place] [employer] Other XR knee LT 4V* 978 [employer] Other XR knee LT 4V* : 1975 Acct:[id number] [employer] Other XR knee LT 4V* Age/Sex: 46 / F ADM Date: 04/04/22 [employer] Other XR knee LT 4V* Loc: [facility] Room: Type: REG CLI [employer] Other XR knee LT 4V* Attending Dr: Sis CHRIS [employer] Other XR knee LT 4V* Copies to: DOT Mackenzie [employer] Other XR knee LT 4V* Ordering Provider: DOT Mackenzie [employer] Other XR knee LT 4V* Date of Service: 04/04/22 [employer] Other XR knee LT 4V* XR/XR knee LT 4V*: Acute pain of left knee [employer] Other XR knee LT 4V* XR knee LT 4V* 04/04/2022 12:28 PM [employer] Other XR knee LT 4V* SIGNS AND SYMPTOMS: Left knee pain [employer] Other XR knee LT 4V* PROTOCOL: Frontal, lateral, and oblique radiographs of the left knee [employer] Other XR knee LT 4V* COMPARISON: None [email or web address] Other XR knee LT 4V* FINDINGS: [employer] Other XR knee LT 4V* There is mild narrowing of the weightbearing and patellofemoral joint spaces. There is [employer] Other XR knee LT 4V* enthesophyte formation at the poles of the patella. There is no joint effusion or soft tissue [employer] Other XR knee LT 4V* swelling. No fractur e or dislocation. [employer] Other XR knee LT 4V* XR/XR knee LT 4V* [employer] Other XR knee LT 4V* IMPRESSION: [facility] [facility] Other XR knee LT 4V* Mild tricompartmenta l degenerative changes are noted. [employer] Other XR knee LT 4V* No acute bony injury. [employer] Other XR knee LT 4V* Impression dictated by: Jasen Starkey M.D.04/04/2022 12:53 PM [employer] Other XR knee LT 4V* Dictation Location: [place] [address] [employer] Other XR knee LT 4V* Transcribed By: CORINE 04/04/22 1253 [employer] Other XR knee LT 4V* Dictated By: Jasen Starkey II, MD 04/04/22 1249 [employer] Other XR knee LT 4V* Signed By: [employer] Other XR knee LT 4V* 04/04/22 1253 [employer] Other COVID-19 Antigenon 2 COVID-19 Antigen Healthcare Worker?: N Alfreda Reference Alfreda Reference Negative Alfreda Blank COVID19 Pos Results Positive results will only be called to COVID19 Det Results Providers for the following groups of patients: COVID19 Pos Results Pre-Surgical Testing, Emergency Room, and Inpatients. Alfreda Blank SARS-CoV+SARS-CoV-2 (COVID-19) Ag [Presence] in Respiratory specimen by Rapid immunoassay Positive for SARS Antigen by ABHISHEK Alfreda Disclaimer The Alfreda SARS Antigen ABHISHEK does not differentiate Alfreda Disclaimer between SARS-CoV and SARS-CoV-2. COVID19 Blank Space Alfreda Disclaimer This test was developed and its performance Alfreda Disclaimer characteristic determined by [employer] and Alfreda Disclaimer validated at [facility]. This Alfreda Disclaimer test has not been FDA cleared or approved. This Alfreda Disclaimer test has been authorized by FDA under an Emergency Use Alfreda Disclaimer Authorization (EUA). This test has been validated Alfreda Disclaimer in accordance with the FDA's Guidance Document (Policy Alfreda Disclaimer for Diagnostics Testing in Laboratories Certified to Alfreda Disclaimer Perform High Complexity Testing under CLIA prior to Alfreda Disclaimer Emergency Use Authorization for Coronavirus Alfreda Disclaimer iseas during the Public Health Emergency) Alfreda Disclaimer issued on October 02, 2019. This test is only authorized Alfreda Disclaimer for the duration of time the declaration that Alfreda Disclaimer circumstances exist justifying the authorization of Alfreda Disclaimer the emergency use of in vitro diagnostic tests for Alfreda Disclaimer detection of SARS-CoV-2 virus and/or diagnosis of Alfreda Disclaimer COVID-19 infection under section 564(b)(1) of the Alfreda Disclaimer Act, 21 U.S.C. 360bbb-3(b)(1), unless the Alfreda Disclaimer authorization is terminated or revoked sooner. PERFORMED BY: [facility] Shw[place] [address] PATHOLOGIST DOCTOR OF NAPRAPATHY JUAN MANUEL MAYORGA M.D. Normal [facility] Comment on above: Performed By: #### C OVID-19 ALFREDA, SOFIAPOS #### [facility] [address] [place] [address] Alfreda Ag Positiveon 07-15-19 22 Alfreda Ag Positive Positive Critically abnormal Negative [facility] Comment on above: Result Comment: This is a duplicate Alfreda SARS Antigen (ABHISHEK) result to be used for statistical tracking purpose only. PERFORMED BY: [place] [address] PATHOLOGIST DOCTOR OF NAPRAPATHY JUAN MANUEL MAYORGA M.D. Performed By: #### C OVID-19 ALFREDA, SOFIAPOS #### [facility] [address] [place] [address] CARDIAC JASEN ADMITon 021 CK [Catalytic activity/Vol] 114 U/L Normal 30-135 [facility] Comment on above: Performed By: #### DARIO Franz MP #### [facility] [address] [place] [address] Dr. Amy Cantu CK.MB [Mass/Vol] 0.95 ng/mL Normal <=2.37 [facility] Comment on above: Performed By: #### DARIO Franz MP #### [facility] [address] [place] [address] Dr. Amy Cantu HSTROP 6.1 pg/mL Normal 4.0-35.5 [facility] Comment on above: Result Comment: CUT- OFF POINTS HAVE BEEN ESTABLISHED BASED ON THE FOURTH UNIVERSAL DEFINITIONS OF MYOCARDIAL INFARCTION. THE UPPER REFERENCE LIMIT (URL) OF TROPONIN, DEFINED THE 99TH PERCENTILE OF cTnI DISTRIBUTION IN A REFERENCE POPULATION, HAS BEEN CONFIRMED THE DECISION THRESHOLD FOR UT DIAGNOSIS. Performed By: #### DARIO Franz MP #### [facility] [address] [place] [address] Dr. Amy Cantu JUVE 43.0 ng/mL Normal <=61.5 [facility] Comment on above: Performed By: #### DARIO Franz MP #### [facility] [address] [place] [address] Dr. Amy Cantu CBC AUTO DIFFon 06-05-2021 BASO # 0.1 103/ul Normal 0.0-0.1 [facility] Comment on above: Performed By: #### C BC #### [facility] [address] [place] [address] [address] Amy Cantu Basophils/100 WBC (Bld) 0.9 % Normal 0.2-2.0 [facility] Comment on above: Performed By: #### C BC #### [facility] [address] [place] [address] Dr. Amy Cantu EO # 0.2 103/ul Normal 0.0-0.7 [facility] Comment on above: Performed By: #### C BC #### [facility] [address] [place] [address] Dr. Amy Cantu Eosinophils/100 WBC (Bld) 3.1 % Normal 0.9-7.0 [facility] Comment on above: Performed By: #### C BC #### [facility] [address] [place] [address] Dr. Amy Cantu Erythrocyte distribution width (RBC) [Ratio] 16.8 % Critically high 11.0-15.0 [facility] Comment on above: Performed By: #### C BC #### [facility] [address] [place] [address] Dr. Amy Cantu Hematocrit (Bld) [Volume fraction] 32.1 % Critically low 36.0-48.0 [facility] Comment on above: Performed By: #### C BC #### [facility] [address] [place] [address] Dr. Amy aCntu Hemoglobin (Bld) [Mass/Vol] 9.6 g/dL Critically low 12.0-16.0 [facility] Comment on above: Performed By: #### C BC #### [facility] [address] [place] [address] Dr. Amy Cantu IG # 0.03 10e3/ul Normal 0.00-0.03 [facility] Comment on above: Performed By: #### C BC #### [facility] [address] [place] [address] Dr. Amy Cantu IG % 0.5 % Normal 0.0-0.5 [facility] Comment on above: Performed By: #### C BC #### [facility] [address] [place] [address] Dr. Amy Cantu LYMPH # 1.8 103/ul Normal 1.2-3.8 [facility] Comment on above: Performed By: #### C BC #### [facility] [address] [place] [address] Dr. Amy Cantu Lymphocytes/100 WBC (Bld) 28.5 % Normal 20.5-60.0 [facility] Comment on above: Performed By: #### C BC #### [facility] [address] [place] [address] Dr. Amy Cantu MANUAL DIFF REQ NO Normal [facility] Comment on above: Performed By: #### C BC #### [facility] [address] [place] [address] Dr. Amy Cantu MCH (RBC) [Entitic mass] 23.3 pg Critically low 26.7-34.0 [facility] Comment on above: Performed By: #### C BC #### [facility] [address] [place] [address] Dr. Amy Cantu MCHC (RBC) [Mass/Vol] 29.9 g/dL Normal 29.9-35.2 [facility] Comment on above: Performed By: #### C BC #### [facility] [address] [place] [address] Dr. Amy Cantu MCV (RBC) [Entitic vol] 77.9 fL Critically low 81.0-99.0 [facility] Comment on above: Performed By: #### C BC #### [facility] [address] [place] [address] Dr. Amy Cantu MONO # 0.7 103/ul Normal 0.3-0.8 [facility] Comment on above: Performed By: #### C BC #### [facility] [address] [place] [address] Dr. Amy Cantu Monocytes/100 WBC (Bld) 11.3 % Normal 1.7-12.0 [facility] Comment on above: Performed By: #### C BC #### [facility] [address] [place] [address] Dr. Amy Cantu NEUT # 3.6 103/ul Normal 1.4-6.5 [facility] Comment on above: Performed By: #### C BC #### [facility] [address] [place] [address] Dr. Amy Cantu Neutrophils/100 WBC (Bld) 55.7 % Normal 43.0-75.0 [facility] Comment on above: Performed By: #### C BC #### [facility] [address] [place] [address] Dr. Amy Cantu Platelet mean volume (Bld) [Entitic vol] 9.5 fL Normal 9.5-13.5 [facility] Comment on above: Performed By: #### C BC #### [facility] [address] [place] [address] Dr. Amy Cantu PLT 396 103/ul Normal 150-450 [facility] Comment on above: Performed By: #### C BC #### [facility] [address] [place] [address] Dr. Amy Cantu RBC 4.12 106/ul Critically low 4.20-5.40 [facility] Comment on above: Performed By: #### C BC #### [facility] [address] [place] [address] Dr. Amy Cantu WBC 6.5 103/ul Normal 4.0-11.0 [facility] Comment on above: Performed By: #### C BC #### [facility] [address] [place] [address] Dr. Amy Cantu Covid-19 PCR ([facility])on SARS-CoV-2 (COVID-19) RNA MAYRA+probe Ql (Unsp spec) Not detected Normal NOT DETECTED [facility] Comment on above: Result Comment: This test is not yet approved or cleared by the [place] FDA. When there are no FDA-approved or cleared tests available, and other criteria are met, FDA can make tests available under an emergency access mechanism called an Emergency Use Authorization (EUA). The EUA for this test is supported by the [employer] of Health and Human Service's (HHS's) declaration that circumstances exist to justify the emergency use of in vitro diagnostics for the detection and/or diagnosis of the virus that causes COVID-19. This EUA will remain in effect (meaning this test can be used) for the duration of the COVID-19 declaration justifying emergency of IVDs, unless it is terminated or revoked by FDA (after which the test may no longer be used). When diagnostic testing is negative, the possibility of a false negative should be considered in the context of a patient's recent exposures and the presence of clinical signs and symptoms consistent with SARS-CoV-2. Performed By: #### C VDTB #### [facility] [address] [place] [address] Dr. Amy Cantu D-DIMERon 06-05-2021 D-DIMER 0.81 mg/L FEU Critically high 0.19-0.50 [facility] Comment on above: Performed By: #### L BCFS #### [facility] [address] [place], [place] [id number] Bassam Slater D-DIMER COMMENTS SEE BELOW Normal [facility] Comment on above: Result Comment: Incr eases in D-Dimer concentration observed with thromboembolic events can be variable due to localization, size, and age of the thrombus. Therefore, a thromboembolic event cannot be diagnosed with certainty on the basis of the reference range. D-Dimers may also be elevated for a variety of disorders including: advanced age, , coronary disease, cancer, liver disease, infection, inflammation, hematoma, DIC, trauma, post-surgery, diabetes, thrombolytic or anticoagulant therapy, stress, and generalized hospitalization. Performed By: #### L BCFS #### [facility] [address] [place] [address] Bassam Slater PROF CHEM 8 (BAS METB)on Anion gap [Moles/Vol] 9.1 mmol/L Normal [facility] Comment on above: Performed By: #### B MP, CMADM #### [facility] [address] [address] [address] Amy Cantu Calcium [Mass/Vol] 9.0 mg/dL Normal 8.4-10.2 [facility] Comment on above: Performed By: #### B NADINE, CMADM #### [facility] [address] [address] [address] Amy Cantu Chloride [Moles/Vol] 103 mmol/L Normal 98-107 [facility] Comment on above: Performed By: #### B NADINE, CMADM #### [facility] [address] [address] [address] Amy Cantu CO2 [Moles/Vol] 26.7 mmol/L Normal 22.0-30.0 [facility] Comment on above: Performed By: #### B NADINE, CMADM #### [facility] [address] [place] [address] Dr. Amy Cantu Creatinine [Mass/Vol] 0.99 mg/dL Normal 0.52-1.04 [facility] Comment on above: Performed By: #### B NADINE, CMADM #### [facility] [address] [address] [address] Amy Cantu EGFR-AF HONDURAN >60 Normal >=60 [facility] Comment on above: Performed By: #### B NADINE, CMADM #### [facility] [address] [place] [address] Dr. Amy Cantu EGFR-NON AF HONDURAN =60 Normal >=60 [facility] Comment on above: Performed By: #### B NADINE, CMADM #### [facility] [address] [place] [address] Dr. Amy Cantu Glucose [Mass/Vol] 135 mg/dL Critically high 74-106 [facility] Comment on above: Performed By: #### B NADINE, CMADM #### [facility] [address] [place] [address] Dr. Amy Cantu Potassium [Moles/Vol] 3.8 mmol/L Normal 3.4-5.0 [facility] Comment on above: Performed By: #### B NADINE, CMADM #### [facility] [address] [address] [address] Amy Cantu Sodium [Moles/Vol] 135 mmol/L Critically low 137-145 [facility] Comment on above: Performed By: #### B MP, CMADM #### [facility] [address] [address] [address] Amy Cantu Urea nitrogen [Mass/Vol] 17.0 mg/dL Normal 7.0-17.0 [facility] Comment on above: Performed By: #### B MP, CMADM #### [facility] [address] [address] [address] Amy Cantu Urea nitrogen/Creatini ne [Mass ratio] 17.2 mg/mg Normal [facility] Comment on above: Performed By: #### B MP, CMADM #### [facility] [address] [address] [address] Amy Cantu Covid-19 PCR (CVDTB)on 05-02 SARS-CoV-2 (COVID-19) RNA MAYRA+probe Ql (Unsp spec) Not detected Normal NOT DETECTED [facility] Comment on above: Result Comment: This test is not yet approved or cleared by the [place] FDA. When there are no FDA-approved or cleared tests available, and other criteria are met, FDA can make tests available under an emergency access mechanism called an Emergency Use Authorization (EUA). The EUA for this test is supported by the [employer] of Health and Human Service's (HHS's) declaration that circumstances exist to justify the emergency use of in vitro diagnostics for the detection and/or diagnosis of the virus that causes COVID-19. This EUA will remain in effect (meaning this test can be used) for the duration of the COVID-19 declaration justifying emergency of IVDs, unless it is terminated or revoked by FDA (after which the test may no longer be used). When diagnostic testing is negative, the possibility of a false negative should be considered in the context of a patient's recent exposures and the presence of clinical signs and symptoms consistent with SARS-CoV-2. Performed By: #### C VDTBH #### [facility] [address] [address] [address] Amy Cantu US PELVIS TRANSVAGon 021 US PELVIS TRANSVAG EXAMINATION: US PELVIS TRANSVAG HISTORY: Excessive and frequent menstruation COMPARISON: No relevant comparison available. TECHNIQUE: Transabdominal and transvaginal sonographic examination. FINDINGS: UTERUS: Heterogeneous mass within the anterior wall myometrium, 3.7 x 3.6 x 2.8 cm; nonspecific but favoring a leiomyoma. Multiple nabothian cysts within the cervix. Uterus size: ENDOMETRIUM: Thickened without appreciable mass. Endometrial thickness: 17 mm RIGHT OVARY: Normal size and appearance. Duplex Doppler demonstrates normal waveform and flow; resistive index . Ovary size: 3.9 x 2.2 x 2.2 cm LEFT OVARY: Not seen. No suspicious adnexal findings. CUL-DE-SAC: Unremarkable. No significant free fluid. BLADDER: Unremarkable. OTHER: None. IMPRESSION: 1. Abnormally thickened endometrium (17 mm) endometrial hyperplasia versus mass. 2. Slightly heterogeneous mass within the anterior uterine wall which appears to abut the endometrial margin; leiomyoma versus neoplasm or extension of endometrial process. Consider tissue sampling. 3. Multiple prominent nabothian cysts within the cervix. Electronically authenticated by: ERON GARCIA Date: 2020-08-19 15:17 Normal [facility] FSHon 07-27-2020 FSH 4.6 mIU/mL Normal [facility] Comment on above: Result Comment: Adul t Female: Follicular phase 3.5 - 12.5 Ovulation phase 4.7 - 21.5 Luteal phase 1.7 - 7.7 Postmenopausal 25.8 - 134.8 Performed By: #### L [facility] #### [facility] [address] [place], [place] [id number] Bassam Slater LUTEINIZING HORMONE (LH)on 0 07-27-2020 LH 7.8 mIU/mL Normal [facility] Comment on above: Result Comment: Adul t Female: Follicular phase 2.4 - 12.6 Ovulation phase 14.0 - 95.6 Luteal phase 1.0 - 11.4 Postmenopausal 7.7 - 58.5 Performed By: #### L [facility] #### [facility] [address] [place], [place] [id number] Bassam Slater PAP ACOG PANEL 2: 30 to 65on 07-27-2020 . . Normal [facility] Comment on above: Result Comment: Perf ormed at: WB Performed By: #### [id number] #### [facility] [address] [place] [address] Bassam Slater Age Gdln ACOG Testing 30-65 Normal [facility] Comment on above: Performed By: #### [id number] #### [facility] [address] [place] [address] Bassam Nohemy DIAGNOSIS: Comment Normal [facility] Comment on above: Result Comment: NEGA TIVE FOR INTRAEPITHELIAL LESION OR MALIGNANCY. Performed at: WB Performed By: #### [id number] #### [facility] [address] [place] [address] Bassam Nohemy HPV Aptima Negative Normal Negative [facility] Comment on above: Result Comment: This nucleic acid amplification test detects fourteen high-risk HPV types (16,18,31,33,35,39,45,51,52,56,58,59,66,68) without differentiation. Performed at: =G Performed By: #### [id number] #### [facility] [address] [place] [address] Bassam Nohemy Methodology: Comment [facility] Comment on above: Result Comment: This liquid based ThinPrep(R) pap test was screened with the use of an image guided system. Performed at: WB Performed By: #### [id number] #### [facility] [address] [place] [address] Bassam Nohemy Note: Comment Normal [facility] Comment on above: Result Comment: The Pap smear is a screening test designed to aid in the detection of premalignant and malignant conditions of the uterine cervix. It is not a diagnostic procedure and should not be used as the sole means of detecting cervical cancer. Both false-positive and false-negative reports do occur. . Performed at: WB Performed By: #### [id number] #### [facility] [address] [place] [address] Bassam Slater Performed by: Comment Normal [facility] Comment on above: Result Comment: Radha Cesar, Remote Inpatient Coder (ASCP) Performed at: WB Performed By: #### [id number] #### [facility] [address] [place], [place] [id number] Bassam Slater Specimen adequacy: Comment Normal [facility] Comment on above: Result Comment: Sati sfactory for evaluation. Endocervical and/or squamous metaplastic cells (endocervical component) are present. Performed at: WB Performed By: #### [id number] #### [facility] [address] [place], [place] [id number] Bassam Slater CBC AUTO DIFFon 07-26-2020 BASO # 0.1 103/ul Normal 0.0-0.1 [facility] Comment on above: Performed By: #### L BCFSH #### [facility] [address] [place] [address] Bassam Slater Basophils/100 WBC (Bld) 1.0 % Normal 0.2-2.0 [facility] Comment on above: Performed By: #### L BCFSH #### [facility] [address] [place] [address] Bassam Slater EO # 0.2 103/ul Normal 0.0-0.7 [facility] Comment on above: Performed By: #### L BCFSH #### [facility] [address] [place] [address] Bassam Nohemy Eosinophils/100 WBC (Bld) 2.6 % Normal 0.9-7.0 [facility] Comment on above: Performed By: #### L BCFSH #### [facility] [address] [place] [address] Bassam Slater Erythrocyte distribution width (RBC) [Ratio] 16.3 % Critically high 11.0-15.0 [facility] Comment on above: Performed By: #### L BCFSH #### [facility] [address] [place] [address] Bassam Slater Hematocrit (Bld) [Volume fraction] 38.5 % Normal 36.0-48.0 [facility] Comment on above: Performed By: #### L BCFSH #### [facility] [address] [address] Bassam Nohemy Hemoglobin (Bld) [Mass/Vol] 12.1 g/dL Normal 12.0-16.0 [facility] Comment on above: Performed By: #### L BCFSH #### [facility] [address] [place] [address] Bassam Nohemy IG # 0.01 10e3/ul Normal 0.00-0.03 [facility] Comment on above: Performed By: #### L BCFS #### [facility] [address] [place] [address] Bassam Nohemy IG % 0.1 % Normal 0.0-0.5 [facility] Comment on above: Performed By: #### L BCFS #### [facility] [address] [place] [address] Bassam Nohemy LYMPH # 2.6 103/ul Normal 1.2-3.8 [facility] Comment on above: Performed By: #### L BCFS #### [facility] [address] [place] [address] Bassam Slater Lymphocytes/100 WBC (Bld) 31.8 % Normal 20.5-60.0 [facility] Comment on above: Performed By: #### L BCFSH #### [facility] [address] [place] [address] Bassam Slater MANUAL DIFF REQ NO Normal [facility] Comment on above: Performed By: #### L BCFSH #### [facility] [address] [place], [place] [id number] Bassammalina Leesen MCH (RBC) [Entitic mass] 25.4 pg Critically low 26.7-34.0 [facility] Comment on above: Performed By: #### L BCFSH #### [facility] [address] [place], [place] [address] Bassammalina Slater MCHC (RBC) [Mass/Vol] 31.4 g/dL Normal 29.9-35.2 [facility] Comment on above: Performed By: #### L BCFSH #### [facility] [address] [place] [address] Bassammalina Salter MCV (RBC) [Entitic vol] 80.9 fL Critically low 81.0-99.0 [facility] Comment on above: Performed By: #### L BCFS #### [facility] [address] [place], [place] [address] Bassammalina Slater MONO # 0.5 103/ul Normal 0.3-0.8 [facility] Comment on above: Performed By: #### L [facility] #### [facility] [address] [place] [address] Bassam Nohemy Monocytes/100 WBC (Bld) 5.8 % Normal 1.7-12.0 [facility] Comment on above: Performed By: #### L TENISHAFS #### [facility] [address] [place] [address] Bassammalina Leesen NEUT # 4.7 103/ul Normal 1.4-6.5 [facility] Comment on above: Performed By: #### L [facility] #### [facility] [address] [place] [address] Bassammalina Slater Neutrophils/100 WBC (Bld) 58.7 % Normal 43.0-75.0 [facility] Comment on above: Performed By: #### L BCFS #### [facility] [address] [place], [place] [id number] Bassammalina Slater Platelet mean volume (Bld) [Entitic vol] 9.5 fL Normal 9.5-13.5 [facility] Comment on above: Performed By: #### L BCFS #### [facility] [address] [place] [address] Bassam Nohemy PLT 422 103/ul Normal 150-450 [facility] Comment on above: Performed By: #### L BCFS #### [facility] [address] [place], [place] [address] Bassam Nohemy RBC 4.76 106/ul Normal 4.20-5.40 [facility] Comment on above: Performed By: #### L BCFSH #### [facility] [address] [place], [place] [address] Bassam Nohemy WBC 8.1 103/ul Normal 4.0-11.0 [facility] Comment on above: Performed By: #### L BCFS #### [facility] [address] [place] [address] Bassam Slater TSHon 07-26-2020 TSH 4.081 uIU/mL Normal 0.470-4.680 [facility] Comment on above: Performed By: #### T SH #### [facility] [address] [place], [place] [address] Bassam Slater TSH RANGE SEE BELOW Normal [facility] Comment on above: Result Comment: <0.3 4 UIU/ml HYPERTHYROID 0.34-5.60 UIU/ml EUTHYROID >5.60 UIU/ml HYPOTHYROID Performed By: #### T SH #### [facility] [address] [place] [address] Bassam Slater Vital Signs Date Time Vital Sign Value Performing Clinician Facility 04-06-2022 12:00-0400 Body height 162.56 cm Marko Carlinisle II Other [facility] Other 04-06-2022 12:00-0400 Body mass index (BMI) [Ratio] 46.86 kg/m2 Marko Carlinisle II Other [facility] Other 04-06-2022 12:00-0400 Body weight 123.83 kg Marko Carlinisle II Other [facility] Other 04-04-2022 13:05-0400 Body height 162.56 cm Sis Pratt Other [facility] Other 04-04-2022 13:05-0400 Body temperature 98 [degF] Sis Pratt Other [facility] Other 04-04-2022 13:05-0400 Diastolic blood pressure 81 mm[Hg] Sis Pratt Other [facility] Other 04-04-2022 13:05-0400 Respiratory rate 18 /min Sis Ludwigmond Other [facility] Other 04-04-2022 13:05-0400 SaO2% (BldA) [Mass fraction] 100 % Sis Santa Other [facility] Other 04-04-2022 13:05-0400 Systolic blood pressure 127 mm[Hg] Sis Santa Other [facility] Other 05-11-2021 15:00-0500 Body height 162.56 cm Sis Santa Other [facility] Other 05-11-2021 15:00-0500 Body mass index (BMI) [Ratio] 46.34 kg/m2 Sis Santa Other [facility] Other 05-11-2021 15:00-0500 Body temperature 98.4 [degF] Sis Santa Other [facility] Other 05-11-2021 15:00-0500 Body weight 122.47 kg Sis Santa Other [facility] Other 05-11-2021 15:00-0500 Respiratory rate 18 /min Sis Santa Other [facility] Other 05-11-2021 15:00-0500 SaO2% (BldA) [Mass fraction] 96 % Sis Santa Other [facility] Other 05-06-2021 14:45-0400 Body height 162.56 cm Nicki Ginty Other [facility] Other 05-06-2021 14:45-0400 Body mass index (BMI) [Ratio] 46.34 kg/m2 Nicki Vidhyanty Other [facility] Other 05-06-2021 14:45-0400 Body temperature 98.2 [degF] Nicki Vidhyanty Other [facility] Other 05-06-2021 14:45-0400 Body weight 122.47 kg Nicki Vidhyanty Other [facility] Other 05-06-2021 14:45-0400 SaO2% (BldA) [Mass fraction] 99 % Nicki Keenty Other [facility] Other Encounters Encounter Date Encounter Type Care Provider Facility Start: 05-29-2023 End: 05-29-2023 ambulatory GRIFFIN RAMIREZ Not Available Start: 04-19-2022 End: 04-19-2022 ambulatory Marko Portillo II Other [facility] Other Start: 04-19-2022 Office outpatient vi sit 25 minutes Marko Portillo II [facility] Start: 04-13-2022 End: 04-13-2022 ambulatory PHYSICIAN NO [facility] Work Phone: Start: 04-13-2022 End: 04-13-2022 Patient encounter procedure PHYSICIAN NO [facility] [address] Start: 04-07-2022 End: 04-07-2022 ambulatory Marko Portillo II Other [facility] Other Start: 04-07-2022 Telephone encounter Marko Portillo II [facility] Start: 04-06-2022 Office outpatient ne w 45 minutes Marko Portillo II [facility] Start: 04-06-2022 End: 04-06-2022 ambulatory PHYSICIAN NO FAMILY Facility:[facility] Start: 04-06-2022 End: 04-06-2022 ambulatory PHYSICIAN NO [facility] Work Phone: Start: 04-06-2022 End: 04-06-2022 Patient encounter procedure PHYSICIAN NO [facility] Start: 04-04-2022 Office outpatient vi sit 15 minutes Sis Santa [facility] Start: 04-04-2022 End: 04-04-2022 ambulatory PHYSICIAN NO Count includes the [facility] Other Start: 04-04-2022 End: 04-04-2022 Patient encounter procedure PHYSICIAN NO [facility] Start: 07-15-2021 End: 07-15-2021 ambulatory PHYSICIAN NO [facility] Facility:[facility] Start: 06-05-2021 End: 06-06-[address] KENNY HUERTAS Facility:[facility] Start: 05-12-2021 End: 05-12-[address] DOCTOR CEBALLOS Facility:[facility] Start: 05-11-2021 End: 05-11-2021 ambulatory Sis Santa Other [facility] Other Start: 05-11-2021 Office outpatient vi sit 15 minutes Sis Santa [facility] Start: 05-06-2021 End: 05-06-2021 ambulatory Nicki Ginty Other [facility] Other Start: 05-06-2021 Office outpatient vi sit 15 minutes Nicki Ginty [facility] Start: 10-15-[address] LUCIANA BARRIOS Facility :[facility] Start: 10-14-2020 Encounter for other preprocedural examination DR LUCIANA BARRIOS [facility] Start: 10-12-[address] LUCIANA BARRIOS Facility :[facility] Start: 10-07-2020 End: 10-08-[address] LUCIANA BARRIOS Facility:[facility] Start: 10-07-2020 End: 10-08-2020 Encounter for other preprocedural examination DR LUCIANA BARRIOS Facility:[facility] Start: 08-19-2020 End: 08-20-[address] LUCIANA BARRIOS Facility:[facility] Start: 07-26-2020 End: 07-27-[address] LUCIANA BARRIOS Facility:[facility] Start: 07-22-2020 End: 07-22-[address] LUCIANA BARRIOS Facility:[facility] Procedures Date Procedure Procedure Detail Performing Clinician Start: 04-13-2022 MRI of left knee PHYSIC DEVORA NO FAMILY Start: 04-06-2022 Pelvis X-ray PHYSICIAN NO FAMILY Start: 04-06-2022 Radiologic examinati on of knee PHYSICIAN NO FAMILY Start: 04-04-2022 Radiologic examinati on of knee PHYSICIAN NO FAMILY Payers Date Payer Category Payer Unknown [id number] 2021 Self-pay [id number] 1975 Unknown [id number] 2.16.84 [id number] 1973 Unknown [id number] 2.16.84 [id number]. 1973 Unknown [id number] 2.16.84 [id number] 1973 Unknown [id number] 2.16.84 [id number] 1973 Unknown [id number] 2.16.84 [id number] 1973 Unknown [id number] 2.16.84 [id number] 1973 Unknown [id number] 2.16.84 [id number] 1973 Unknown [id number] 2.16.84 0.1.196453.3.579.2.59 1973 Unknown [id number] 2.16.840 .[id number] 1959 Unknown [id number] Unknown [id number] 2.16.8 [id number] Unknown [id number] 2.16.8 [id number] Unknown [id number] 2.16.8 [id number] Social History Date Type Detail Facility Sex Assigned At [facility] Other Start: 1975 Sex Assigned At Female F [facility] Evaluation note 04-19-2022 Note Date & Type Note Facility 04-19-2022 Evaluation note Encounter Date Diagnosis Assessment Notes Apr, Acute pain of left knee (ICD-10 - M25.562) Apr, Other I do long discussion with the patient regarding her MRI findings and explained to her that these increased signal is within the posterior horn medial meniscus may just represent degeneration of meniscus and not necessarily a tear. 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 At this point I would recommend doing a steroid injection to try and calm down the knee so she can do back to doing things she wants to and if she does not get relief with that then maybe have her follow-up with one of my partners, Dr. Ambrocio to determine if a knee scope may be an option for her. She agrees with this plan. After consent was obtained, the left knee was injected with 3cc Kenalog and 7cc bupivicaine using sterile technique. Patient tolerated the injection well. Follow-up in 6 to 8 weeks. [facility] Other Evaluation note 04-06-2022 Note Date & Type Note Facility 04-06-2022 Evaluation note Encounter Date Diagnosis Assessment Notes Apr, Acute pain of left knee (ICD-10 - M25.562) Apr, Other I had a long discussion with the patient regarding the etiology of her symptoms and treatment options. I explained to her that overall her x-rays look normal I do not appreciate any degenerative changes or acute osseous abnormalities. However she is been having pain now for almost 3 months its not controlled with Tylenol oral anti-inflammator ies. Given the twisting mechanism as well as her exam findings today I would recommend an MRI to evaluate for meniscus tear. While we did discuss a steroid injection today to calm down any inflammation, I explained to her that there was a meniscus tear and it was amenable to fixation it would behoove her given the overall good quality of her knee to get it fixed. If we did a steroid injection today and mask the pain this could advance her degeneration in her knee if this truly was a meniscus tear amenable to fixation. [facility] Other Evaluation note 04-04-2022 Note Date & Type Note Facility 04-04-2022 Evaluation note Encounter Date Diagnosis Assessment Notes Apr, Acute pain of left knee (ICD-10 - M25.562) Knee sprain home care material was printed [employer] wrap for comfort and compression. Use the crutches for ambulation for 2 to 3 days. Ice and elevate your knee 2-3 times a day.Take ibuprofen, 600 mg 3-4 times a day with food as needed for pain and swelling. Off work today and tomorrow. Follow-up with your family physician if no improvement in 2 to 3 days. Follow-up with orthopedics if no improvement in 5 to 7 days. [facility] Other Clinical Note 06-06-2021 Note Date & Type Note Facility 06-06-2021 Note PROCEDURE: CTA CHEST WO W CON REASON FOR STUDY/Clinical History: Shortness of breath with dyspnea. COMPARISON STUDY: None available at time of dictation. CT ANGIO CHEST WITH CONTRAST: TECHNIQUE: Volumetric data acquisition of chest was obtained following intravenous administration of 100 mL Omnipaque 350 intravenous contrast without any reported adverse effects. Axial images were reconstructed; sagittal and coronal images were reformatted. 3-D images were rendered on a separate [employer] workstation. MIP imaging is also submitted. Images were reviewed PACS. Dose reduction techniques were achieved by using automated exposure control and/or adjustment of mA and/or kV according to patient size and/or use of iterative reconstruction technique. FINDINGS: There is suboptimal bolus timing for evaluation of pulmonary embolus secondary to significant opacification of the pulmonary arterial venous system and aorta and great vessels. Within this limitation the following are observed. PULMONARY ARTERIES: No definite filling defect identified within the main right or left pulmonary arteries, and the most proximal segmental pulmonary arteries demonstrate no definite occlusive filling defects. There is slight heterogeneity on images 47 through 51 of series 4 involving a distal segmental or subsegmental branch of the pulmonary arterial tree on the right, however this does not definitively appear to be occlusive and there is significant motion and artifact on image 63 through 66 of series 11 at this level. Subtle filling defect at this level and within the most distal pulmonary arterial tree cannot be entirely excluded. No definite significant occlusive filling defect is seen. No findings to suggest peripheral pulmonary consolidation or wedge-shaped consolidation to suggest peripheral infarct. LUNGS: Moderate interstitial edema with multifocal areas of interlobular septal thickening and mild groundglass opacity. There is bronchial wall thickening appreciated with areas of edema along the fissures, and bibasilar dependent areas of atelectatic change. There is no large pleural effusion identified. No significant focal consolidation. The most inferior lung bases on image 89 of series 5 and image 89 of series 4 are not included in the [id number]. AORTA AND VASCULATURE: There is normal caliber of thoracic aorta without evidence of aortic dissection, intramural hematoma or aneurysm. There is cardiomegaly identified. Enlargement of the pulmonary artery consistent with pulmonary arterial hypertension, with a caliber up to 3.2 cm. There is no pericardial effusion identified. There is a small hiatal hernia and distal esophageal mural thickening for which correlation for infectious or inflammatory/reflux esophagitis is recommended. Splenule is seen in the left upper quadrant. MUSCULOSKELETAL: No aggressive focal bony lesions, acute fractures or dislocation. Multifocal degenerative change of the thoracic spine with anterior spurring suggested. The sternum is intact CHEST WALL: Unremarkable. Partially visualized upper abdomen without an acute process. IMPRESSION: No convincing evidence of acute or chronic pulmonary embolism to the level of the proximal segmental branch pulmonary arteries as described above. The vessels distal to this level cannot be well evaluated due to mixing artifact and bolus timing. Slightly heterogeneous appearance of the pulmonary arterial tree on the right as above, best seen on image 51 of series 4 which is nonspecific and is adjacent to significant areas of motion artifact. No definite occlusive filling defect is seen. Moderate interstitial edema with multifocal bronchial thickening and findings suggesting infectious or inflammatory small airways disease as above. A degree of cardiogenic pulmonary edema may also be present. No effusion or consolidation. Cardiomegaly and findings of pulmonary arterial hypertension for which clinical correlation is recommended. Electronically authenticated by: YOLIS WAYNE Date: 2021-06-06 00:43 [facility] Evaluation note 05-11-2021 Note Date & Type Note Facility 05-11-2021 Evaluation note Encounter Date Diagnosis Assessment Notes May, Viral upper respiratory illness (ICD-10 - J06.9) [facility] Other Evaluation note 05-06-2021 Note Date & Type Note Facility 05-06-2021 Evaluation note Encounter Date Diagnosis Assessment Notes May, Contact with and (suspected) exposure to other viral communicable diseases (ICD-10 - Z20.828) May, Viral URI with cough (ICD-10 - J06.9) Advised patient that COVID antigen test was negative today. Advised patient that will tx as viral URI. Supportive care as directed, increase fluids and rest, Tylenol/Motrin as directed, [place] and Flonase as directed, cool mist humidifier, throat lozenges. Advised patient that [place] contains cough suppressant and antihistamine and to be cautious using other OTC cold medications unless directed. Discussed infection control practices such as good hand washing and mask wearing. Patient to follow-up with UC or PCP for persistent or worsening sx despite tx. Immediate eval by ER for warning s/sx as discussed, including but not limited to, SOB, difficulty breathing, chest pain, palpitations, fever >103 or fevers that are not reduced with antipyretic, significant dehydration (unable to keep fluids or food down, persistent vomiting/diarrh ea), abdominal pain, lethargy, severe headache. Patient was provided with education hand sheet. Patient verbalizes understanding and is agreeable to treatment plan May, Other Additional time spent conducting pre-visit phone call, screening for symptoms, instructions on social distancing, application and removal of PPE, and cleaning of examination room, equipment and supplies was preformed. Patient education given for testing methodology and results. Patient care instructions given in writting by [facility] document [facility] Other Evaluation note Note Date & Type Note Facility Evaluation note No assessment information [facility] Work Phone: Evaluation note Note Date & Type Note Facility Evaluation note No Information [facility] Other History general Narrative - Reported Note Date & Type Note Facility History general Narrative - Reported Type Medical History chronic depression Surgical History pilonidal cyst Surgical History abscess on neck [facility] [place] Other Summary Purpose Family History No Family History Records FoundNo Family History Records FoundNo Family History Records Found Advance Directives No Advanced Directives Records Found Advance Directive Response Recorded Date/ Time Advance Directives No July 15, 2021 1:08pm Chief Complaint and Reason for Visit Chief Complaint M25.562 M25.562 acute pain Additional Source Comments INFORMATION SOURCE (unrecogn ized section and content) DATE CREATED AUTHOR 06/08/2021 [facility] DATE CREATED AUTHOR AUTHOR'S ORGANIZ ATION 04/11/2022 [facility] DATE CREATED AUTHOR AUTHOR'S ORGANIZ ATION 05/31/2023 [facility] EPIC REASON FOR VISIT (unrecogniz ed section and content) #20 ANTHONY MALIBU, H/A, SORE THROAT, COUGH, CONGESTION#21 MAROON MALIBU, COUGH, CONGESTION, H/A GETTING WORSELEFT KNEE PAINCLYDE UC LT KNEE PAIN SWELLING WXOrthopedic Office NotesF/U [place] [facility] [place] Care Teams (unrecognized sec tion and content) Team Status: Inactive Member Role Status Dates PHYSICIAN NO FAMILY Primary Care Provider Active [employer] Dimas Attending Provider Active Team Status: Active Member Role Status Dates PHYSICIAN NO FAMILY Primary Care Provider Active Team Status: Inactive Member Role Status Dates PHYSICIAN NO FAMILY Primary Care Provider Active Marko Portillo II, MD Attending Provider Active Goals (unrecognized section and content) Goals may be documented in a n alternate section FOR RECORDS PERTAINING TO PATIENTS WHO ARE OR HAVE BEEN ENROLLED IN A CHEMICAL DEPENDENCY/SUBSTANCEABUSE PROGRAM, SOME INFORMATION MAY BE OMITTED. This clinical summary was aggregated from multiple sources. Caution should be exercised in using it in the provision of clinical care. This summary normalizes information from multiple sources, and as a consequence, information in this document may materially change the coding, format and clinical context of patient data. In addition, data may be omitted in some cases. CLINICAL DECISIONS SHOULD BE BASED ON THE PRIMARY CLINICAL RECORDS. [employer] provides no warranty or guarantee of the accuracy or completeness of information in this document.
== END 2023-07-06 13:05 | disposition home or self-care (01) ==
LOC: PST 13:04
PROVIDERS: Visit Provider Obstetrics & Gynecology
DX: Z01.818 Encounter for other preprocedural examination (principal); R93.89 Abnormal findings on diagnostic imaging of other specified body structures; D25.9 Leiomyoma of uterus, unspecified; R10.2 Pelvic and perineal pain

== ENCOUNTER 2023-07-13 06:17 | Day surgery (SDC) | payer OTHER, SELFPAY ==
[2023-05-18 10:34] VITALS: BP 122/76; PULSE 79; RESP 20; TEMP 36.2; O2SAT 98; BMI 48.8
[2023-07-13] VITALS (12 sets, daily range): BP systolic 117–159; BP diastolic 70–95; PULSE 60–79; RESP 13–20; TEMP 36–36.1; O2SAT 95–100; BMI 49.1
--- OUTSIDE RECORDS SUMMARY | 2023-07-13 06:20 | XMS_ITS | CCD ---
Author Name Unknown Address [address] [facility] [address] [place] [address] Organization [facility] Care Team Providers Care Clinical Care Leader Name Role Phone SOPHIE, DR CHOWDHURY Admitting Unavailable SOPHIE, DR CHOWDHURY Attending Unavailable SOPHIE, DR CHOWDHURY Primary Care Unavailable SOPHIE, DR CHOWDHURY Consulting Unavailable SOPHIE, DR [...] Care Provider Unava DOT Ramey Attending Provider [phone] MD Marko Portillo II Attending Provider Marko Portillo II Unavailable NO FAMILY, PHYSICIAN Primary Care Unavailable Jackson [...] (1 source) Ciprofloxacin Drug Allergy 8 [facility] Repository (1 source) Vancomycin Drug Allergy 8 [facility] Repository (6 sources) Ciprofloxacin Drug Allergy hives and itching Adduplex [facility] [employer] Other (6 sources) Vancomycin Drug Allergy hives and itching [employer] Other Medications Current Medications Medication Drug Class(es) Dates Sig (Normalized) Sig (Original) [id number] 200 actuat albuterol 0.09 mg/actuat metered dose [...] oral tablet (1 source) alpha-Adrenergic Agonist, Uncompetitive G-kvshfv-P-aspartat e Receptor Antagonist, Sigma-1 Agonist Start: 05-11-2021 Capmist DM 60-15-400 MG 1 tablet at 4 hour intervals as needed Orally Four times a day for 10 day(s) May, Active dextromethorphan hydrobromide 1.5 mg/ml / pyrilamine maleate 1.5 mg/ml oral solution (2 sources) Uncompetitive W-fvbsaa-U-aspartat e Receptor Antagonist, Sigma-1 Agonist Start: 05-06-2021 take 20 mL by mouth every eight hours [place] DM 7.5-7.5 MG/5ML 20 mL Orally every [...] LT 4V*on 04-06-2022 XR knee LT 4V* [facility] [place] [address] XRay Report Signed Patient: Konstantin Bartlett MR#: [id number] 978 : 1975 Acct:[id number] Age/Sex: 46 / F ADM Date: 04/06/22 Loc: [facility] Room: Type: [facility] Attending Dr: Marko Portillo II, MD Copies to: Marko Portillo MD Ordering Provider: Marko Portillo MD Date of Service: 04/06/22 XR/XR knee LT 4V*: Acute pain of left knee ([id number]) XR/XR pelvis 1-2V: Acute pain of left [...] Nohemy Loza M.D.04/06/2022 3:16 PM Dictation Location: [place] [address] Transcribed By: [facility] 04/06/22 151 Dictated By: Nohemy Loza MD 04/06/22 151 Signed By: 04/06/22 151 Normal [facility] XR knee LT 4V*on 04-04-2022 XR knee LT 4V* [facility] [place] [address] [place] [address] XRay Report Signed Patient: Konstantin Bartlett MR#: [id number] 978 : 1975 Acct:[id number] Age/Sex: 46 / F ADM Date: 04/04/22 Loc: [facility]CL[facility] Room: Type: [facility] Attending Dr: Sis CHRIS Copies to: DOT [...] No acute bony injury. Impression dictated by: Jsaen Starkey M.D.04/04/2022 12:53 PM Dictation Location: [place] [address] Transcribed By: [facility] 04/04/22 1253 Dictated By: Jasen Starkey II, MD 04/04/22 1249 Signed By: 04/04/22 1253 [facility] XR knee LT 4V* [facility] [employer] Other XR knee LT 4V* [facility] [employer] Other XR knee LT 4V* [address] [facility] [employer] Other XR knee LT 4V* [place] [address] No [facility] [employer] Other XR knee LT 4V* XRay Report [employer] Other XR knee LT 4V* Signed [employer] Other XR knee LT 4V* Patient: Konstantin Bartlett MR#: [id number] [place] [employer] Other XR knee LT 4V* 978 [employer] Other XR knee LT 4V* : 1975 Acct:[id number] [employer] Other XR knee LT 4V* Age/Sex: 46 / F ADM Date: 04/04/22 [employer] Other XR knee LT 4V* Loc: XDUCLY Room: Type: REG CLI [employer] Other XR knee LT 4V* Attending Dr: Sis CHRIS [employer] Other XR knee LT 4V* Copies to: DOT Mackenzie [employer] Other XR knee LT 4V* Ordering Provider: DOT Mackenzie [employer] Other XR knee LT 4V* Date of Service: 04/04/22 [employer] Other XR knee LT 4V* XR/XR knee LT 4V*: Acute pain of left knee [employer] Other XR knee LT 4V* XR knee LT 4V* 04/04/2022 12:28 PM [employer] Other XR knee LT 4V* SIGNS AND SYMPTOMS: Left knee pain [employer] Other XR knee LT 4V* PROTOCOL: Frontal, lateral, and oblique radiographs of the left knee [employer] Other XR knee LT 4V* COMPARISON: None [employer] Other XR knee LT 4V* FINDINGS: [employer] Other XR knee LT 4V* There is mild narrowing of the weightbearing and patellofemoral joint spaces. There is [employer] Other XR knee LT 4V* enthesophyte formation at the poles of the patella. There is no joint effusion or soft tissue [employer] Other XR knee LT 4V* swelling. No fractur e or dislocation. [employer] Other XR knee LT 4V* XR/XR knee LT 4V* [employer] Other XR knee LT 4V* IMPRESSION: [employer] Other XR knee LT 4V* Mild tricompartmenta l degenerative changes are noted. [employer] Other XR knee LT 4V* No acute bony injury. [employer] Other XR knee LT 4V* Impression dictated by: Jasen Starkey M.D.04/04/2022 12:53 PM [employer] Other XR knee LT 4V* Dictation Location: [place] [address] [employer] Other XR knee LT 4V* Transcribed By: CORINE 04/04/22 1253 [employer] Other XR knee LT 4V* Dictated By: Jasen Starkey II, MD 04/04/22 1249 [employer] Other XR knee LT 4V* Signed By: [employer] Other XR knee LT 4V* 04/04/22 1253 [facility] Other COVID-19 Antigenon 2 COVID-19 Antigen Healthcare [...] its performance Alfreda Disclaimer characteristic determined by [employer] and Alfreda Disclaimer validated at [facility]. This Alfreda Disclaimer test has not been [...] is terminated or revoked sooner. PERFORMED BY: [facility] [place] [address] PATHOLOGIST PATIENT SERVICES COORDINATOR JUAN MANUEL MAYORGA M.D. Normal [facility] Comment on above: Performed By: #### C OVID-19 ALFREDA, SOFIAPOS #### [facility] [address] [place] [address] Alfreda Ag Positiveon 07-15-19 22 Alfreda Ag Positive Positive Critically abnormal Negative [facility] Comment on above: Result Comment: This is a duplicate Alfreda SARS Antigen (ABHISHEK) result to be used for statistical tracking purpose only. PERFORMED BY: [place] [id number] PATHOLOGIST PATIENT SERVICES COORDINATOR JUAN MANUEL MAYORGA M.D. Performed By: #### C OVID-19 ALFREDA, SOFIAPOS #### [facility] [address] [place] [address] CARDIAC JASEN ADMITon 021 CK [Catalytic activity/Vol] 114 U/L Normal 30-135 [facility] Comment on above: Performed By: #### DARIO Franz MP #### [facility] [address] [place] [address] Dr. Amy Cantu CK.MB [Mass/Vol] 0.95 ng/mL Normal <=2.37 [facility] Comment on above: Performed By: #### DARIO Franz MP #### [facility] [address] [place] [address] Dr. Amy Cantu HSTROP 6.1 pg/mL Normal 4.0-35.5 [facility] Comment on above: Result Comment: CUT- OFF POINTS HAVE BEEN ESTABLISHED BASED ON THE FOURTH UNIVERSAL DEFINITIONS OF MYOCARDIAL INFARCTION. THE UPPER REFERENCE LIMIT (URL) OF TROPONIN, DEFINED THE 99TH PERCENTILE OF cTnI DISTRIBUTION IN A REFERENCE POPULATION, HAS BEEN CONFIRMED THE DECISION THRESHOLD FOR AL DIAGNOSIS. Performed By: #### DARIO Franz MP #### [facility] [address] [place] [address] Dr. Amy Cantu JUVE 43.0 ng/mL Normal <=61.5 [facility] Comment on above: Performed By: #### DARIO Franz MP #### [facility] [address] [place] [address] Dr. Amy Cantu CBC AUTO DIFFon 06-05-2021 BASO # 0.1 103/ul Normal 0.0-0.1 [facility] Comment on above: Performed By: #### C BC #### [facility] [address] [place] [address] [address] Amy Cantu Basophils/100 WBC (Bld) 0.9 % Normal 0.2-2.0 [facility] Comment on above: Performed By: #### C BC #### [facility] [address] [place] [address] Dr. Amy Cantu EO # 0.2 103/ul Normal 0.0-0.7 [facility] Comment on above: Performed By: #### C BC #### [facility] [address] [place] [address] Dr. Amy Cantu Eosinophils/100 WBC (Bld) 3.1 % Normal 0.9-7.0 [facility] Comment on above: Performed By: #### C BC #### [facility] [address] [place] [address] Dr. Amy Cantu Erythrocyte distribution width (RBC) [Ratio] 16.8 % Critically high 11.0-15.0 [facility] Comment on above: Performed By: #### C BC #### [facility] [address] [place] [address] Dr. Amy Cantu Hematocrit (Bld) [Volume fraction] 32.1 % Critically low 36.0-48.0 [facility] Comment on above: Performed By: #### C BC #### [facility] [address] [place] [address] Dr. Amy Cantu Hemoglobin (Bld) [Mass/Vol] 9.6 g/dL Critically low 12.0-16.0 [facility] Comment on above: Performed By: #### C BC #### [facility] [address] [place] [address] Dr. Amy Cantu IG # 0.03 10e3/ul Normal 0.00-0.03 [facility] Comment on above: Performed By: #### C BC #### [facility] [address] [place] [address] Dr. Amy Cantu IG % 0.5 % Normal 0.0-0.5 [facility] Comment on above: Performed By: #### C BC #### [facility] [address] [place] [address] Dr. Amy Cantu LYMPH # 1.8 103/ul Normal 1.2-3.8 [facility] Comment on above: Performed By: #### C BC #### [facility] [address] [place] [address] Dr. Amy Cantu Lymphocytes/100 WBC (Bld) 28.5 % Normal 20.5-60.0 [facility] Comment on above: Performed By: #### C BC #### [facility] [address] [place] [address] Dr. Amy Cantu MANUAL DIFF REQ NO Normal [facility] Comment on above: Performed By: #### C BC #### [facility] [address] [place] [address] Dr. Amy Cantu MCH (RBC) [Entitic mass] 23.3 pg Critically low 26.7-34.0 [facility] Comment on above: Performed By: #### C BC #### [facility] [address] [place] [address] Dr. Amy Cantu MCHC (RBC) [Mass/Vol] 29.9 g/dL Normal 29.9-35.2 [facility] Comment on above: Performed By: #### C BC #### [facility] [address] [place] [address] Dr. Amy Cantu MCV (RBC) [Entitic vol] 77.9 fL Critically low 81.0-99.0 [facility] Comment on above: Performed By: #### C BC #### [facility] [address] [place] [address] Dr. Amy Cantu MONO # 0.7 103/ul Normal 0.3-0.8 [facility] Comment on above: Performed By: #### C BC #### [facility] [address] [place] [address] Dr. Amy Cantu Monocytes/100 WBC (Bld) 11.3 % Normal 1.7-12.0 [facility] Comment on above: Performed By: #### C BC #### [facility] [address] [place] [address] Dr. Amy Cantu NEUT # 3.6 103/ul Normal 1.4-6.5 [facility] Comment on above: Performed By: #### C BC #### [facility] [address] [place] [address] Dr. Amy Cantu Neutrophils/100 WBC (Bld) 55.7 % Normal 43.0-75.0 [facility] Comment on above: Performed By: #### C BC #### [facility] [address] [place] [address] Dr. Amy Cantu Platelet mean volume (Bld) [Entitic vol] 9.5 fL Normal 9.5-13.5 [facility] Comment on above: Performed By: #### C BC #### [facility] [address] [place] [address] Dr. Amy Cantu PLT 396 103/ul Normal 150-450 [facility] Comment on above: Performed By: #### C BC #### [facility] [address] [place] [address] Dr. Amy Cantu RBC 4.12 106/ul Critically low 4.20-5.40 [facility] Comment on above: Performed By: #### C BC #### [facility] [address] [place] [address] Dr. Amy Cantu WBC 6.5 103/ul Normal 4.0-11.0 [facility] Comment on above: Performed By: #### C BC #### [facility] [address] [place] [address] Dr. Amy Cantu Covid-19 PCR ([facility])on SARS-CoV-2 (COVID-19) RNA MAYRA+probe Ql (Unsp spec) Not detected Normal NOT DETECTED [facility] Comment on above: Result Comment: This test is not yet approved or cleared by the [place] FDA. When there are no FDA-approved or cleared tests available, and other criteria are met, FDA can make tests available under an emergency access mechanism called an Emergency Use Authorization (EUA). The EUA for this test is supported by the Cornetist of Health and Human Service's (HHS's) declaration [...] SARS-CoV-2. Performed By: #### C VDTB #### [facility] [address] [place] [address] Dr. Amy Cantu D-DIMERon 06-05-2021 D-DIMER 0.81 mg/L FEU Critically high 0.19-0.50 [facility] Comment on above: Performed By: #### L BCFS #### [facility] [address] [place], [place] [id number] Bassam Slater D-DIMER COMMENTS SEE BELOW Normal [facility] Comment on above: Result Comment: Incr [...] hospitalization. Performed By: #### L BCFS #### [facility] [address] [place] [address] Bassam Slater PROF CHEM 8 (BAS METB)on Anion gap [Moles/Vol] 9.1 mmol/L Normal [facility] Comment on above: Performed By: #### B MP, CMADM #### [facility] [address] [address] [address] Amy Cantu Calcium [Mass/Vol] 9.0 mg/dL Normal 8.4-10.2 [facility] Comment on above: Performed By: #### B NADINE, CMADM #### [facility] [address] [place] [address] [address] Amy Cantu Chloride [Moles/Vol] 103 mmol/L Normal 98-107 [facility] Comment on above: Performed By: #### B NADINE, CMADM #### [facility] [address] [address] [address] Amy Cantu CO2 [Moles/Vol] 26.7 mmol/L Normal 22.0-30.0 [facility] Comment on above: Performed By: #### B NADINE, CMADM #### [facility] [address] [place] [address] Dr. Amy Cantu Creatinine [Mass/Vol] 0.99 mg/dL Normal 0.52-1.04 [facility] Comment on above: Performed By: #### B NADINE, CMADM #### [facility] [address] [place] [address] [address] Amy Cantu EGFR-AF SUDANESE >60 Normal >=60 [facility] Comment on above: Performed By: #### B NADINE, CMADM #### [facility] [address] [place] [address] Dr. Amy Cantu EGFR-NON AF SUDANESE =60 Normal >=60 [facility] Comment on above: Performed By: #### B NADINE, CMADM #### [facility] [address] [place] [address] Dr. Amy Cantu Glucose [Mass/Vol] 135 mg/dL Critically high 74-106 [facility] Comment on above: Performed By: #### B NADINE, CMADM #### [facility] [address] [place] [address] Dr. Amy Cantu Potassium [Moles/Vol] 3.8 mmol/L Normal 3.4-5.0 [facility] Comment on above: Performed By: #### B NADINE, CMADM #### [facility] [address] [place] [address] [address] Amy Cantu Sodium [Moles/Vol] 135 mmol/L Critically low 137-145 [facility] Comment on above: Performed By: #### B MP, CMADM #### [facility] [address] [place] [address] [address] Amy Cantu Urea nitrogen [Mass/Vol] 17.0 mg/dL Normal 7.0-17.0 [facility] Comment on above: Performed By: #### B MP, CMADM #### [facility] [address] [address] [address] Amy Cantu Urea nitrogen/Creatini ne [Mass ratio] 17.2 mg/mg Normal [facility] Comment on above: Performed By: #### B MP, CMADM #### [facility] [address] [address] [address] Amy Cantu Covid-19 PCR (CVDTB)on 05-02 SARS-CoV-2 (COVID-19) RNA MAYRA+probe Ql (Unsp spec) Not detected Normal NOT DETECTED [facility] Comment on above: Result Comment: This test is not yet approved or cleared by the [place] FDA. When there are no FDA-approved or cleared tests available, and other criteria are met, FDA can make tests available under an emergency access mechanism called an Emergency Use Authorization (EUA). The EUA for this test is supported by the Cornetist of Health and Human Service's (HHS's) declaration [...] SARS-CoV-2. Performed By: #### C VDTBH #### [facility] [address] [address] [address] Amy Cantu US PELVIS TRANSVAGon 021 [...] ERON GARCIA Date: 2020-08-19 15:17 Normal [facility] FSHon 07-27-2020 FSH 4.6 mIU/mL Normal [facility] Comment on above: Result Comment: Adul t Female: Follicular phase 3.5 - 12.5 Ovulation phase 4.7 - 21.5 Luteal phase 1.7 - 7.7 Postmenopausal 25.8 - 134.8 Performed By: #### L [facility] #### [facility] [address] [place], [place] [id number] Bassam Slater LUTEINIZING HORMONE (LH)on 0 07-27-2020 LH 7.8 mIU/mL Normal [facility] Comment on above: Result Comment: Adul t Female: Follicular phase 2.4 - 12.6 Ovulation phase 14.0 - 95.6 Luteal phase 1.0 - 11.4 Postmenopausal 7.7 - 58.5 Performed By: #### L [facility] #### [facility] [address] [place], [place] [address] Bassam Slater PAP ACOG PANEL 2: 30 to 65on 07-27-2020 . . Normal [facility] Comment on above: Result Comment: Perf ormed at: WB Performed By: #### 4 [id number] #### [facility] [address] [place] [address] Bassam Slater Age Gdln ACOG Testing 30-65 Normal [facility] Comment on above: Performed By: #### [id number] #### [facility] [address] [place] [address] Bassam Nohemy DIAGNOSIS: Comment Normal [facility] Comment on above: Result Comment: NEGA TIVE FOR INTRAEPITHELIAL LESION OR MALIGNANCY. Performed at: WB Performed By: #### 4 [id number] #### [facility] [address] [place] [address] Bassam Nohemy HPV Aptima Negative Normal Negative [facility] Comment on above: Result Comment: This nucleic acid amplification test detects fourteen high-risk HPV types (16,18,31,33,35,39,45,51,52,56,58,59,66,68) without differentiation. Performed at: =G Performed By: #### 4 [id number] #### [facility] [address] [place] [address] Bassam Nohemy Methodology: Comment [facility] Comment on above: Result Comment: This liquid based ThinPrep(R) pap test was screened with the use of an image guided system. Performed at: WB Performed By: #### 4 [id number] #### [facility] [address] [place] [address] Bassam Nohemy Note: Comment Normal [facility] Comment on above: Result Comment: The Pap smear is a screening test designed to aid in the detection of premalignant and malignant conditions of the uterine cervix. It is not a diagnostic procedure and should not be used as the sole means of detecting cervical cancer. Both false-positive and false-negative reports do occur. . Performed at: WB Performed By: #### 4 [id number] #### [facility] [address] [place] [address] Bassam Slater Performed by: Comment Normal [facility] Comment on above: Result Comment: Radha Cesar, Coating Engineer (ASCP) Performed at: WB Performed By: #### 4 [id number] #### [facility] [address] [place], [place] [address] Bassam Slater Specimen adequacy: Comment Normal [facility] Comment on above: Result Comment: Sati sfactory for evaluation. Endocervical and/or squamous metaplastic cells (endocervical component) are present. Performed at: WB Performed By: #### 4 [id number] #### [facility] [address] [place], [place] [address] Bassam Slater CBC AUTO DIFFon 07-26-2020 BASO # 0.1 103/ul Normal 0.0-0.1 [facility] Comment on above: Performed By: #### L BCFSH #### [facility] [address] [place] [address] Bassam Slater Basophils/100 WBC (Bld) 1.0 % Normal 0.2-2.0 [facility] Comment on above: Performed By: #### L BCFSH #### [facility] [address] [place] [address] Bassam Slater EO # 0.2 103/ul Normal 0.0-0.7 [facility] Comment on above: Performed By: #### L BCFSH #### [facility] [address] [place] [address] Bassam Nohemy Eosinophils/100 WBC (Bld) 2.6 % Normal 0.9-7.0 [facility] Comment on above: Performed By: #### L BCFSH #### [facility] [address] [place] [address] Bassam Slater Erythrocyte distribution width (RBC) [Ratio] 16.3 % Critically high 11.0-15.0 [facility] Comment on above: Performed By: #### L BCFSH #### [facility] [address] [place] [address] Bassam Slater Hematocrit (Bld) [Volume fraction] 38.5 % Normal 36.0-48.0 [facility] Comment on above: Performed By: #### L BCFSH #### [facility] [address] [place] [address] Bassam Nohemy Hemoglobin (Bld) [Mass/Vol] 12.1 g/dL Normal 12.0-16.0 [facility] Comment on above: Performed By: #### L BCFSH #### [facility] [address] [place] [address] Bassam Nohemy IG # 0.01 10e3/ul Normal 0.00-0.03 [facility] Comment on above: Performed By: #### L BCFS #### [facility] [address] [place] [address] Bassam Nohemy IG % 0.1 % Normal 0.0-0.5 [facility] Comment on above: Performed By: #### L BCFS #### [facility] [address] [place] [address] Bassam Nohemy LYMPH # 2.6 103/ul Normal 1.2-3.8 [facility] Comment on above: Performed By: #### L BCFS #### [facility] [address] [place] [address] Bassam Slater Lymphocytes/100 WBC (Bld) 31.8 % Normal 20.5-60.0 [facility] Comment on above: Performed By: #### L BCFSH #### [facility] 03 [place] [address] Bassam Slater MANUAL DIFF REQ NO Normal [facility] Comment on above: Performed By: #### L BCFSH #### [facility] [address] [place], [place] [id number] Bassammalina Leesen MCH (RBC) [Entitic mass] 25.4 pg Critically low 26.7-34.0 [facility] Comment on above: Performed By: #### L BCFSH #### [facility] [address] [place], [place] [id number] Bassammalina Slater MCHC (RBC) [Mass/Vol] 31.4 g/dL Normal 29.9-35.2 [facility] Comment on above: Performed By: #### L BCFSH #### [facility] [address] [place] [address] Bassammalina Slater MCV (RBC) [Entitic vol] 80.9 fL Critically low 81.0-99.0 [facility] Comment on above: Performed By: #### L BCFS #### [facility] [address] [place], [place] [id number] Bassammalina Slater MONO # 0.5 103/ul Normal 0.3-0.8 [facility] Comment on above: Performed By: #### [facility] #### [facility] [address] [place] [address] Bassam Nohemy Monocytes/100 WBC (Bld) 5.8 % Normal 1.7-12.0 [facility] Comment on above: Performed By: #### L TENISHAFS #### [facility] [address] [place] [address] Bassammalina Leesen NEUT # 4.7 103/ul Normal 1.4-6.5 [facility] Comment on above: Performed By: #### [facility] #### [facility] [address] [place] [address] Bassammalina Slater Neutrophils/100 WBC (Bld) 58.7 % Normal 43.0-75.0 [facility] Comment on above: Performed By: #### L BCFS #### [facility] [address] [place], [place] [id number] Bassammalina Slater Platelet mean volume (Bld) [Entitic vol] 9.5 fL Normal 9.5-13.5 [facility] Comment on above: Performed By: #### L BCFS #### [facility] [address] [place] [address] Bassam Nohemy PLT 422 103/ul Normal 150-450 [facility] Comment on above: Performed By: #### L BCFS #### [facility] [address] [place], [place] [id number] Bassam Nohemy RBC 4.76 106/ul Normal 4.20-5.40 [facility] Comment on above: Performed By: #### L BCFSH #### [facility] [address] [place], [place] [id number] Bassam Nohemy WBC 8.1 103/ul Normal 4.0-11.0 [facility] Comment on above: Performed By: #### L BCFS #### [facility] [address] [place] [id number] Bassam Slater TSHon 07-26-2020 TSH 4.081 uIU/mL Normal 0.470-4.680 [facility] Comment on above: Performed By: #### T SH #### [facility] [address], [place] [address] Bassam Slater TSH RANGE SEE BELOW Normal [facility] Comment on above: Result Comment: <0.3 4 UIU/ml HYPERTHYROID 0.34-5.60 UIU/ml EUTHYROID >5.60 UIU/ml HYPOTHYROID Performed By: #### T SH #### [facility] [address] [place] [id number] Bassam Slater Vital Signs Date Time Vital Sign Value Performing Clinician Facility 04-06-2022 12:00-0400 Body height 162.56 cm Marko Carlinisle II Other [facility] Other 04-06-2022 12:00-0400 Body mass index (BMI) [Ratio] 46.86 kg/m2 Marko Carlinisle II Other [facility] Other 04-06-2022 12:00-0400 Body weight 123.83 kg Marko Carlinisle II Other [facility] Other 04-04-2022 13:05-0400 Body height 162.56 cm Sis Pratt Other [facility] Other 04-04-2022 13:05-0400 Body temperature 98 [degF] Sis Pratt Other [facility] Other 04-04-2022 13:05-0400 Diastolic blood pressure 81 mm[Hg] Sis Pratt Other [facility] Other 04-04-2022 13:05-0400 Respiratory rate 18 /min Sis Ludwigmond Other [facility] Other 04-04-2022 13:05-0400 SaO2% (BldA) [Mass fraction] 100 % Sis Santa Other [facility] Other 04-04-2022 13:05-0400 Systolic blood pressure 127 mm[Hg] Sis Santa Other [facility] Other 05-11-2021 15:00-0500 Body height 162.56 cm Sis Santa Other [facility] Other 05-11-2021 15:00-0500 Body mass index (BMI) [Ratio] 46.34 kg/m2 Sis Santa Other [facility] Other 05-11-2021 15:00-0500 Body temperature 98.4 [degF] Sis Santa Other [facility] Other 05-11-2021 15:00-0500 Body weight 122.47 kg Sis Santa Other [facility] Other 05-11-2021 15:00-0500 Respiratory rate 18 /min Sis Santa Other [facility] Other 05-11-2021 15:00-0500 SaO2% (BldA) [Mass fraction] 96 % Sis Santa Other [facility] Other 05-06-2021 14:45-0400 Body height 162.56 cm Nicki Ginty Other [facility] Other 05-06-2021 14:45-0400 Body mass index (BMI) [Ratio] 46.34 kg/m2 Nicki Vidhyanty Other [facility] Other 05-06-2021 14:45-0400 Body temperature 98.2 [degF] Nicki Vidhyanty Other [facility] Other 05-06-2021 14:45-0400 Body weight 122.47 kg Nicki Vidhyanty Other [facility] Other 05-06-2021 14:45-0400 SaO2% (BldA) [Mass fraction] 99 % Nicki Keenty Other [facility] Other Encounters Encounter Date Encounter Type Care Provider Facility Start: 05-29-2023 End: 05-29-2023 ambulatory GRIFFIN RAMIREZ Not Available Start: 04-19-2022 End: 04-19-2022 ambulatory Marok Portillo II Other [facility] Other Start: 04-19-2022 Office outpatient vi sit 25 minutes Marko Portillo II [facility] Start: 04-13-2022 End: 04-13-2022 ambulatory PHYSICIAN NO [facility] Work Phone: Start: 04-13-2022 End: 04-13-2022 Patient encounter procedure PHYSICIAN NO [facility] [address] Start: 04-07-2022 End: 04-07-2022 ambulatory Marko Portillo II Other [facility] Other Start: 04-07-2022 Telephone encounter Marko Portillo II [facility] Start: 04-06-2022 Office outpatient ne w 45 minutes Marko Portillo II [facility] Start: 04-06-2022 End: 04-06-2022 ambulatory PHYSICIAN NO FAMILY Facility:[facility] Start: 04-06-2022 End: 04-06-2022 ambulatory PHYSICIAN NO [facility] Work Phone: Start: 04-06-2022 End: 04-06-2022 Patient encounter procedure PHYSICIAN NO [facility] Start: 04-04-2022 Office outpatient vi sit 15 minutes Sis Santa [facility] Start: 04-04-2022 End: 04-04-2022 ambulatory PHYSICIAN NO [facility] Other Start: 04-04-2022 End: 04-04-2022 Patient encounter procedure PHYSICIAN NO [facility] Start: 07-15-2021 End: 07-15-2021 ambulatory PHYSICIAN NO [facility] Facility:[facility] Start: 06-05-2021 End: 06-06-[address] KENNY HUERTAS Facility:[facility] Start: 05-12-2021 End: 05-12-[address] DOCTOR CEBALLOS Facility:[facility] Start: 05-11-2021 End: 05-11-2021 ambulatory Sis Santa Other [facility] Other Start: 05-11-2021 Office outpatient vi sit 15 minutes Sis Santa [facility] Start: 05-06-2021 End: 05-06-2021 ambulatory Nicki Ginty Other [facility] Other Start: 05-06-2021 Office outpatient vi sit 15 minutes Nicki Ginty [facility] Start: 10-15-[address] LUCIANA BARRIOS Facility :[facility] Start: 10-14-2020 Encounter for other preprocedural examination DR LUCIANA BARRIOS [facility] Start: 10-12-[address] LUCIANA BARRIOS [...] FAMILY Payers Date Payer Category Payer Unknown [id number] 2021 Self-pay [id number] 1975 Unknown [id number] 2.16.84 [id number] 1973 Unknown [id number] 2.16.84 0.1.945609.3.579.2. 1973 Unknown [id number] 2.16.84 0.1.291966.3.579.2.59 1973 Unknown [id number] 2.16.84 0.1.625082.3.579.2.59 1973 Unknown [id number] 2.16.84 0.1.329756.3.579.2.59 1973 Unknown [id number] 2.16.84 0.1.801549.3.579.2.59 1973 Unknown [id number] 2.16.84 0.1.841632.3.579.2.59 1973 Unknown [id number] 2.16.84 0.1.162237.3.579.2.59 1973 Unknown [id number] 2.16.840 .1.339054.3.579.2.1259 1959 Unknown [id number] Unknown [id number] 2.16.8 40.1.533194.3.579.2.531 Unknown [id number] 2.16.8 [id number] Unknown [id number] 2.16.8 [id number] Social History Date Type Detail Facility Sex Assigned At [facility] Other Start: 1975 Sex Assigned At Female F [facility] Evaluation note 04-19-2022 Note Date & Type [...] well. Follow-up in 6 to 8 weeks. [facility] Other Evaluation note 04-06-2022 Note Date & [...] was a meniscus tear amenable to fixation. [facility] Other Evaluation note 04-04-2022 Note Date & [...] no improvement in 5 to 7 days. [facility] Other Clinical Note 06-06-2021 Note Date & [...] 3-D images were rendered on a separate Ning by [employer] workstation. MIP imaging is also submitted. Images [...] series 4 are not included in the [id number]. AORTA AND VASCULATURE: There is normal caliber [...] by: YOLIS WAYNE Date: 2021-06-06 00:43 [facility] Evaluation note 05-11-2021 Note Date & Type Note Facility 05-11-2021 Evaluation note Encounter Date Diagnosis Assessment Notes May, Viral upper respiratory illness (ICD-10 - J06.9) [facility] Other Evaluation note 05-06-2021 Note Date & [...] increase fluids and rest, Tylenol/Motrin as directed, [place] and Flonase as directed, cool mist humidifier, throat lozenges. Advised patient that [place] contains cough suppressant and antihistamine and to [...] writting by [facility] document [facility] Other Evaluation note Note Date & Type Note Facility Evaluation note No assessment information [facility] Work Phone: Evaluation note Note Date & Type Note Facility Evaluation note No Information [facility] Other History general Narrative - Reported Note Date & Type Note Facility History general Narrative - Reported Type Medical History chronic depression Surgical History pilonidal cyst Surgical History abscess on neck [facility] Other Summary Purpose Family History No Family [...] DATE CREATED AUTHOR AUTHOR'S ORGANIZ ATION 04/11/2022 [facility] DATE CREATED AUTHOR AUTHOR'S ORGANIZ ATION 05/31/2023 [facility] EPIC REASON FOR VISIT (unrecogniz ed section and content) #20 ANTHONY MALIBU, H/A, SORE THROAT, COUGH, CONGESTION#21 MAROON MALIBU, COUGH, CONGESTION, H/A GETTING WORSELEFT KNEE PAINCLYDE UC LT KNEE PAIN SWELLING WXOrthopedic Office NotesF/U MRI [place] [facility] [place] Care Teams (unrecognized sec tion and content) [...] BE BASED ON THE PRIMARY CLINICAL RECORDS. [employer] provides no warranty or guarantee of the accuracy or completeness of information in this document.
[2023-07-13 06:32] LABS: Basophils Absolute Auto 0.1 10^3/uL (0.0-0.1); Basophils Percent Auto 1.3 % (0.2-2.0); Eosinophils Absolute Auto 0.2 10^3/uL (0.0-0.7); Hematocrit 36.6 % (36.0-48.0); Hemoglobin 11.5 g/dL (12.0-16.0); Immature Granulocytes Abs Auto 0.02 10^3/uL (0.00-0.03); Immature Granulocytes Pct Auto 0.3 % (0.0-0.5); Lymphocytes Absolute Auto 2.1 10^3/uL (1.2-3.8); Lymphocytes Percent Auto 33.3 % (20.5-60.0); Mean Corpuscular HGB Conc 31.4 g/dL (29.9-35.2); Mean Corpuscular Hemoglobin 25.7 pg (26.7-34.0); Mean Corpuscular Volume 81.7 fL (81.0-99.0); Monocytes Absolute Auto 0.4 10^3/uL (0.3-0.8); Monocytes Percent Auto 6.9 % (1.7-12.0); Neutrophils Absolute Auto 3.4 10^3/uL (1.4-6.5); Neutrophils Percent Auto 55.2 % (43.0-75.0); Platelet Count 342 10^3/uL (150-450); Red Blood Count 4.48 10^6/uL (4.20-5.40); Red Cell Distribution Width 16.2 % (11.0-15.0); White Blood Count 6.2 10^3/uL (4.0-11.0)
[2023-07-13 06:56] LABS: HCG Quantitative <1 mIU/mL
[2023-07-13] MEDS: LACTATED RINGER'S SOLUTION 1,000 ML 50 ML IV (06:57)
--- NOTE | 2023-07-13 08:42 | P.ON_ITS ---
Brief Operative Note Date of procedure: 07/13/23 Pre-op diagnosis: thickened endometrium, menorrhagia Post-op diagnosis: same as pre-op Procedure: NAME OF PROCEDURE: [ D&c hysteroscopy with myosure] PROCEDURE: The patient was taken back to the Operating Room where she was prepped and draped in normal sterile fashion after being placed under general anesthesia without difficulty. She was also placed in the dorsal lithotomy position. A weighted speculum was placed in the patient?s vagina. The anterior lip of the cervix was identified and grasped with a single tooth tenaculum. The patient?s uterus was then sounded roughly to [? 10] cm. The patient was then gently dilated using Hegar dilators. The hysteroscope was passed through the patient?s cervix into the uterus. Both ostia were identified. fluffy appearing endometri um. No gross evidence of malignancy, no gross evidence of polyps or fibroids. The myosure apparatus was then used in all 4 quadrants after being placed throught the hysteroscope The endometrial curettings were sent out to pathology. The single tooth tenaculum was then removed from the patient's anterior lip of the cervix where excellent hemostasis was noted. All instruments were removed from the patient?s vagina. The patient tolerated the procedure well. Sponge, lap and needle counts were correct times two. The patient was taken to the Recovery Room in stable condition.Room in stable condition. Anesthesia: MAN Surgeon: Vikash Thapa Estimated blood loss (mL): 5 Pathology: other (endometrial currettings) Condition: stable Disposition: PACU Urinary Catheter Management Urinary Catheter Management Urethral: Cath placed during this visit: no
== END 2023-07-13 09:30 | disposition home or self-care (01) ==
PROVIDERS: Visit Provider Obstetrics & Gynecology
PROC: (CPT 952; principal; 2023-07-13 07:30)
DX: R93.89 Abnormal findings on diagnostic imaging of other specified body structures (principal); R10.2 Pelvic and perineal pain; D25.9 Leiomyoma of uterus, unspecified; Z87.891 Personal history of nicotine dependence; Z90.49 Acquired absence of other specified parts of digestive tract; E66.01 Morbid (severe) obesity due to excess calories; Z68.42 Body mass index [BMI] 45.0-49.9, adult; I10 Essential (primary) hypertension; K21.9 Gastro-esophageal reflux disease without esophagitis; F32.A Depression, unspecified; Z91.419 Personal history of unspecified adult abuse
CPT/HCPCS: 58558; 36415; 84702; 85025; 88305; J1885; J2250; J2405; J2704; J3010

== ENCOUNTER 2023-10-09 09:02 | Outpatient (OUT) | payer OTHER, SELFPAY ==
--- OUTSIDE RECORDS SUMMARY | 2023-10-09 09:25 | XMS_ITS | CCD ---
Author Organization [facility] Care Team Providers Care Jumbo Operator Name Role Phone SOPHIE, DR CHOWDHURY Admitting [...] Unavailable SOPHIE, DR CHOWDHURY Primary Care Unavailable Nicki England Unavailable Sis Pratt Unavailable NO FAMILY, PHYSICIAN Primary Care Provider Unava DOT Ramey Attending Provider [phone] MD Marko Portillo II Attending Provider [phone] Marko Portillo II Unavailable NO FAMILY, PHYSICIAN Primary Care Unavailable Jackson Mcleod Admitting Unavailable Jackson Mcleod Attending Unavailable NO FAMILY, PHYSICIAN Primary Care Unavailable Sis Pratt Admitting Unavailable Sis Pratt Attending Unavailable NO FAMILY, PHYSICIAN Primary Care Unavailable Marko Portillo II Admitting UnavailMarko Frank II Attending Unavailadina e No Pcp, No Pcp Primary Care Provider Unavailadina e IRENE REID Attending Unavailable LUCIANA BARRIOS Attending Unavailable GRIFFIN RAMIREZ Attending Unavailable Allergies Allergy Classification Reported Allergen(s) Allergy Type Date of Onset Reaction(s) Facility (1 source) Ciprofloxacin Drug Allergy 8 [facility] (1 source) Vancomycin Drug Allergy 8 [facility] (7 sources) Ciprofloxacin Drug Allergy 3 [employer] Work Phone: (7 sources) Vancomycin Drug Allergy 3 [place] Other Medications Current Medications Medication Drug Class(es) Dates Sig (Normalized) Sig (Original) [id number] 200 actuat albuterol 0.09 mg/actuat metered dose [...] oral tablet (1 source) alpha-Adrenergic Agonist, Uncompetitive K-ouabwn-L-aspartat e Receptor Antagonist, Sigma-1 Agonist Start: 05-11-2021 Capmist DM 60-15-400 MG 1 tablet at 4 hour intervals as needed Orally Four times a day for 10 day(s) May, Active dextromethorphan hydrobromide 1.5 mg/ml / pyrilamine maleate 1.5 mg/ml oral solution (2 sources) Uncompetitive W-dscleo-J-aspartat e Receptor Antagonist, Sigma-1 Agonist Start: 05-06-2021 take 20 mL by mouth every eight hours [place] DM 7.5-7.5 MG/5ML 20 mL Orally every 8 hours for 5 days May, Active ferrous sulfate 325 mg oral tablet (1 source) take 1 tablet by mouth once daily at breakfast ferrous sulfate 325 (65 FE) mg tablet Take 1 tablet (325 mg total) by mouth daily with breakfast. 0 Active fluticasone propionate 0.05 mg/actuat metered dose nasal spray (2 sources) Corticosteroid Start: 05-06-2021 take 1 spray(s) nasal route once daily Flonase Allergy Relief 50 MCG/ACT 1 spray in each nostril Nasally Once a day for 14 day(s) May, Active ibuprofen 800 mg oral tablet (4 sources) Nonsteroidal Anti-inflammatory Drug Start: 02-01-2023 ibuprofen (MOTRIN) 800 mg tablet Take 1 tablet (800 mg total) by mouth as needed for pain. 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] Onset: 10-14-2020 Chronic Other upper [...] specified noninflammatory disorders of cervix uteri; Translations: [OT SPEC NONINFLAMM D/O CERV UTERI] Onset: 08-26-2020 [...] LT 4V*on 04-06-2022 XR knee LT 4V* [facility] Main [place] [address] [place] [address] XRay Report Signed Patient: Konstantin Bartlett MR#: [id number] 978 : 1975 Acct:[id number] Age/Sex: 46 / F ADM Date: 04/06/22 Loc: [place] Room: Type: [facility] Attending Dr: Marko Portillo II, MD Copies to: Marko Portillo MD Ordering Provider: Marko Portillo MD Date of Service: 04/06/22 XR/XR knee LT 4V*: Acute pain of left knee ([id number]) XR/XR pelvis 1-2V: Acute pain of left [...] Nohemy Loza M.D.04/06/2022 3:16 PM Dictation Location: [place] [address] Transcribed By: CORINE 04/06/22 1516 Dictated By: Nohemy Loza MD 04/06/22 1513 Signed By: 04/06/22 1516 [facility] XR knee LT 4V*on 04-04-2022 XR knee LT 4V* [facility] Main [address] [address] XRay Report Signed Patient: Konstantin Bartlett MR#: [id number] 978 : 1975 Acct:[id number] Age/Sex: 46 / F ADM Date: 04/04/22 Loc: [place] Room: Type: [facility] Attending Dr: Sis CHRIS Copies to: [...] Jasen Starkey M.D.04/04/2022 12:53 PM Dictation Location: [place] [address] Transcribed By: CORINE 04/04/22 1253 Dictated By: Jasen Starkey II, MD 04/04/22 1249 Signed By: 04/04/22 1253 [facility] XR knee LT 4V* [facility] [employer] Other XR knee LT 4V* [facility] Main [facility] [employer] Other XR knee LT 4V* [address] [place] [address] [employer] Other XR knee LT 4V* [place] [address] No rt [employer] Other XR knee LT 4V* XRay Report [employer] Other XR knee LT 4V* Signed [email or web address] Other XR knee LT 4V* Patient: Konstantin Bartlett MR#: [id number] [employer] Other XR knee LT 4V* 978 [email or web address] Other XR knee LT 4V* : 1975 Acct:[id number] [employer] Other XR knee LT 4V* Age/Sex: 46 / F ADM Date: 04/04/22 [employer] Other XR knee LT 4V* Loc: [place] Room: Type: REG CLI [employer] Other XR knee LT 4V* Attending Dr: Sis CHRIS [employer] Other XR knee LT 4V* Copies to: DOT Mackenzie [employer] Other XR knee LT 4V* Ordering Provider: DOT Mackenzie [employer] Other XR knee LT 4V* Date of Service: 04/04/22 [employer] Other XR knee LT 4V* XR/XR knee LT 4V*: Acute pain of left knee [employer] Other XR knee LT 4V* XR knee LT 4V* 04/04/2022 12:28 PM [employer] Other XR knee LT 4V* SIGNS AND SYMPTOMS: Left knee pain [employer] Other XR knee LT 4V* PROTOCOL: Frontal, lateral, and oblique radiographs of the left knee [employer] Other XR knee LT 4V* COMPARISON: None Nort [employer] Other XR knee LT 4V* FINDINGS: [email or web address] Other XR knee LT 4V* There is mild narrowing of the weightbearing and patellofemoral joint spaces. There is [employer] Other XR knee LT 4V* enthesophyte formation at the poles of the patella. There is no joint effusion or soft tissue [employer] Other XR knee LT 4V* swelling. No fractur e or dislocation. [employer] Other XR knee LT 4V* XR/XR knee LT 4V* [employer] Other XR knee LT 4V* IMPRESSION: [employer] Other XR knee LT 4V* Mild tricompartmenta l degenerative changes are noted. [employer] Other XR knee LT 4V* No acute bony injury. [employer] Other XR knee LT 4V* Impression dictated by: Jasen Starkey M.D.04/04/2022 12:53 PM [employer] Other XR knee LT 4V* Dictation Location: [place] [address] [employer] Other XR knee LT 4V* Transcribed By: CORINE 04/04/22 1253 [employer] Other XR knee LT 4V* Dictated By: Jasen Starkey II, MD 04/04/22 1249 [employer] Other XR knee LT 4V* Signed By: [email or web address] Other XR knee LT 4V* 04/04/22 1253 [employer] Other COVID-19 Antigenon 01-14-202 2 COVID-19 Antigen Healthcare Worker?: N Alfreda [...] its performance Alfreda Disclaimer characteristic determined by [employer] and Alfreda Disclaimer validated at [facility]. This Alfreda Disclaimer test has not been [...] is terminated or revoked sooner. PERFORMED BY: [place] [address] PATHOLOGIST STYRENE DEHYDRATION REACTOR OPERATOR JUAN MANUEL MAYORGA M.D. Normal [facility] Comment on above: Performed By: #### C OVID-19 ALFREDA, SOFIAPOS #### [address] Alfreda Ag Positiveon 07-15-19 22 Alfreda Ag Positive Positive Critically abnormal Negative [facility] Comment on above: Result Comment: This is a duplicate Alfreda SARS Antigen (ABHISHEK) result to be used for statistical tracking purpose only. PERFORMED BY: [place] [address] PATHOLOGIST STYRENE DEHYDRATION REACTOR OPERATOR JUAN MANUEL MAYORGA M.D. Performed By: #### C OVID-19 ALFREDA, SOFIAPOS #### [facility] [address] [place] [address] CARDIAC JASEN ADMITon 021 CK [Catalytic activity/Vol] 114 U/L Normal 30-135 [facility] Comment on above: Performed By: #### B DARIO MCCOY #### [facility] [address] [place] [address] Dr. Amy Cantu CK.MB [Mass/Vol] 0.95 ng/mL Normal <=2.37 [facility] Comment on above: Performed By: #### Osei MCCOY CMADM #### [facility] [address] [place] [address] Dr. Amy Cantu HSTROP 6.1 pg/mL Normal 4.0-35.5 [facility] Comment on above: Result Comment: CUT- OFF POINTS HAVE BEEN ESTABLISHED BASED ON THE FOURTH UNIVERSAL DEFINITIONS OF MYOCARDIAL INFARCTION. THE UPPER REFERENCE LIMIT (URL) OF TROPONIN, DEFINED THE 99TH PERCENTILE OF cTnI DISTRIBUTION IN A REFERENCE POPULATION, HAS BEEN CONFIRMED THE DECISION THRESHOLD FOR MT DIAGNOSIS. Performed By: #### B NADINE, CMADM #### [facility] [address] [place] [address] Dr. Amy Cantu JUVE 43.0 ng/mL Normal <=61.5 [facility] Comment on above: Performed By: #### B NADINE, EDWINDM #### [facility] [address] [place] [address] Dr. Amy Cantu CBC AUTO DIFFon 06-05-2021 BASO # 0.1 103/ul Normal 0.0-0.1 [facility] Comment on above: Performed By: #### C BC #### [facility] [address] [place] [address] Dr. Amy Cantu Basophils/100 WBC (Bld) 0.9 % Normal 0.2-2.0 [facility] Comment on above: Performed By: #### C BC #### [facility] [address] [place] [address] Dr. Amy Cantu EO # 0.2 103/ul Normal 0.0-0.7 [facility] Comment on above: Performed By: #### C BC #### [facility] [address] [place] [address] Dr. Amy Cantu Eosinophils/100 WBC (Bld) 3.1 % Normal 0.9-7.0 [facility] Comment on above: Performed By: #### C BC #### [facility] [address] [place] [address] Dr. Amy Cantu Erythrocyte distribution width (RBC) [Ratio] 16.8 % Critically high 11.0-15.0 [facility] Comment on above: Performed By: #### C BC #### [facility] [address] [place] [address] Dr. Amy Cantu Hematocrit (Bld) [Volume fraction] 32.1 % Critically low 36.0-48.0 [facility] Comment on above: Performed By: #### C BC #### [facility] [address] [place] [address] Dr. Amy Cantu Hemoglobin (Bld) [Mass/Vol] 9.6 g/dL Critically low 12.0-16.0 [facility] Comment on above: Performed By: #### C BC #### [facility] [address] [place] [address] Dr. Amy Cantu IG # 0.03 10e3/ul Normal 0.00-0.03 [facility] Comment on above: Performed By: #### C BC #### [facility] [address] [place] [address] Dr. Amy Cantu IG % 0.5 % Normal 0.0-0.5 [facility] Comment on above: Performed By: #### C BC #### [facility] [address] [place] [address] Dr. Amy Cantu LYMPH # 1.8 103/ul Normal 1.2-3.8 [facility] Comment on above: Performed By: #### C BC #### [facility] [address] [place] [address] Dr. Amy Cantu Lymphocytes/100 WBC (Bld) 28.5 % Normal 20.5-60.0 [facility] Comment on above: Performed By: #### C BC #### [facility] [address] [place] [address] Dr. Amy Cantu MANUAL DIFF REQ NO Normal [facility] Comment on above: Performed By: #### C BC #### [facility] [address] [place] [address] Dr. Amy Cantu MCH (RBC) [Entitic mass] 23.3 pg Critically low 26.7-34.0 [facility] Comment on above: Performed By: #### C BC #### [facility] [address] [place] [address] Dr. Amy Cantu MCHC (RBC) [Mass/Vol] 29.9 g/dL Normal 29.9-35.2 [facility] Comment on above: Performed By: #### C BC #### [facility] [address] [place] [address] Dr. Amy Cantu MCV (RBC) [Entitic vol] 77.9 fL Critically low 81.0-99.0 [facility] Comment on above: Performed By: #### C BC #### [facility] [address] [place] [address] [address] Amy Cantu MONO # 0.7 103/ul Normal 0.3-0.8 [facility] Comment on above: Performed By: #### C BC #### [facility] [address] [place] [address] [address] Amy Cantu Monocytes/100 WBC (Bld) 11.3 % Normal 1.7-12.0 [facility] Comment on above: Performed By: #### C BC #### [facility] [address] [place] [address] [address] Amy Cantu NEUT # 3.6 103/ul Normal 1.4-6.5 [facility] Comment on above: Performed By: #### C BC #### [facility] [address] [place] [address] Dr. Amy Cantu Neutrophils/100 WBC (Bld) 55.7 % Normal 43.0-75.0 [facility] Comment on above: Performed By: #### C BC #### [facility] [address] [place] [address] [address] Amy Cantu Platelet mean volume (Bld) [Entitic vol] 9.5 fL Normal 9.5-13.5 [facility] Comment on above: Performed By: #### C BC #### [facility] [address] [place] [address] Dr. Amy Cantu PLT 396 103/ul Normal 150-450 [facility] Comment on above: Performed By: #### C BC #### [facility] [address] [place] [address] [address] Amy Cantu RBC 4.12 106/ul Critically low 4.20-5.40 [facility] Comment on above: Performed By: #### C BC #### [facility] [address] [place] [address] [address] Amy Cantu WBC 6.5 103/ul Normal 4.0-11.0 [facility] Comment on above: Performed By: #### C BC #### [facility] [address] [place] [address] Dr. Amy Cantu Covid-19 PCR (CVDTB)on SARS-CoV-2 (COVID-19) RNA MAYRA+probe Ql (Unsp spec) Not detected Normal NOT DETECTED [facility] Comment on above: Result Comment: This test is not yet approved or cleared by the [place] FDA. When there are no FDA-approved or cleared tests available, and other criteria are met, FDA can make tests available under an emergency access mechanism called an Emergency Use Authorization (EUA). The EUA for this test is supported by the Customer Marketing Manager of Health and Human Service's (HHS's) declaration [...] SARS-CoV-2. Performed By: #### C VDTB #### [facility] [address] [place] [address] Dr. Amy Cantu D-DIMERon 06-05-2021 D-DIMER 0.81 mg/L FEU Critically high 0.19-0.50 [facility] Comment on above: Performed By: #### L BCFS #### [facility] [address] [place] [address] Bassam Slater D-DIMER COMMENTS SEE BELOW Normal [facility] Comment on above: Result Comment: Incr [...] and generalized hospitalization. Performed By: #### L [facility] #### [facility] [address] [place] [address] Bassam Slater PROF CHEM 8 (BAS METB)on Anion gap [Moles/Vol] 9.1 mmol/L Normal [facility] Comment on above: Performed By: #### B NADINE, EDWINDM #### [facility] [address] [place] [address] Dr. Amy Cantu Calcium [Mass/Vol] 9.0 mg/dL Normal 8.4-10.2 [facility] Comment on above: Performed By: #### B EDWIN MCOCYDM #### [facility] [address] [place] [address] Dr. Amy Cantu Chloride [Moles/Vol] 103 mmol/L Normal 98-107 [facility] Comment on above: Performed By: #### B EDWIN MCCOYDM #### [facility] [address] [place] [address] Dr. Amy Cantu CO2 [Moles/Vol] 26.7 mmol/L Normal 22.0-30.0 [facility] Comment on above: Performed By: #### B EDWIN MCCOYDM #### [facility] [address] [place] [address] Dr. Amy Cantu Creatinine [Mass/Vol] 0.99 mg/dL Normal 0.52-1.04 [facility] Comment on above: Performed By: #### B DARIO MCCOY #### [facility] [address] [place] [address] Dr. Amy Cantu EGFR-AF MONEGASQUE >60 Normal >=60 [facility] Comment on above: Performed By: #### B EDWIN MCCOYDM #### [facility] [address] [place] [address] Dr. Amy Cantu EGFR-NON AF MONEGASQUE =60 Normal >=60 [facility] Comment on above: Performed By: #### B DARIO MCCOY #### [facility] [address] [place] [address] Dr. Amy Cantu Glucose [Mass/Vol] 135 mg/dL Critically high 74-106 [facility] Comment on above: Performed By: #### B NADINE, CMADM #### [facility] [address] [place] [address] Dr. Amy Cantu Potassium [Moles/Vol] 3.8 mmol/L Normal 3.4-5.0 [facility] Comment on above: Performed By: #### B NADINE, CMADM #### [facility] [address] [place] [address] Dr. Amy Cantu Sodium [Moles/Vol] 135 mmol/L Critically low 137-145 [facility] Comment on above: Performed By: #### B NADINE, EDWINDM #### [facility] [address] [place] [address] Dr. Amy Cantu Urea nitrogen [Mass/Vol] 17.0 mg/dL Normal 7.0-17.0 [facility] Comment on above: Performed By: #### B NADINE, EDWINDM #### [facility] [address] [place] [address] Dr. Amy Cantu Urea nitrogen/Creatini ne [Mass ratio] 17.2 mg/mg Normal [facility] Comment on above: Performed By: #### B NADINE, EDWINDM #### [facility] [address] [place] [address] Dr. Amy Cantu Covid-19 PCR ([facility])on 05-02 SARS-CoV-2 (COVID-19) RNA MAYRA+probe Ql (Unsp spec) Not detected Normal NOT DETECTED [facility] Comment on above: Result Comment: This test is not yet approved or cleared by the [place] FDA. When there are no FDA-approved or cleared tests available, and other criteria are met, FDA can make tests available under an emergency access mechanism called an Emergency Use Authorization (EUA). The EUA for this test is supported by the [place] of Health and Human Service's (HHS's) declaration [...] SARS-CoV-2. Performed By: #### C VDTB #### [facility] [address] [place], [place] [address] Dr. Amy Cantu US PELVIS TRANSVAGon 021 [...] by: ERON GARCIA Date: 2020-08-19 15:17 Normal [facility] FSHon 07-27-2020 FSH 4.6 mIU/mL Normal [facility] Comment on above: Result Comment: Adul t Female: Follicular phase 3.5 - 12.5 Ovulation phase 4.7 - 21.5 Luteal phase 1.7 - 7.7 Postmenopausal 25.8 - 134.8 Performed By: #### L BCFS #### [facility] [address] [place], [place] [address] Bassam Slater LUTEINIZING HORMONE (LH)on 0 07-27-2020 LH 7.8 mIU/mL Normal [facility] Comment on above: Result Comment: Adul t Female: Follicular phase 2.4 - 12.6 Ovulation phase 14.0 - 95.6 Luteal phase 1.0 - 11.4 Postmenopausal 7.7 - 58.5 Performed By: #### L [facility] #### [facility] [address] [place] [address] Bassam Slater PAP ACOG PANEL 2: 30 to 65on 07-27-2020 . . Normal [facility] Comment on above: Result Comment: Perf ormed at: WB Performed By: #### [id number] #### [facility] [address] [place] [address] Bassam Slater Age Gdln ACOG Testing 30-65 [facility] Comment on above: Performed By: #### [id number] #### [facility] [address] [place] [address] Bassam Slater DIAGNOSIS: Comment Normal [facility] Comment on above: Result Comment: NEGA TIVE FOR INTRAEPITHELIAL LESION OR MALIGNANCY. Performed at: WB Performed By: #### [id number] #### [facility] [address] [place] [address] Bassam Slater HPV Aptima Negative Normal Negative [facility] Comment on above: Result Comment: This nucleic acid amplification test detects fourteen high-risk HPV types (16,18,31,33,35,39,45,51,52,56,58,59,66,68) without differentiation. Performed at: =G Performed By: #### [id number] #### [facility] [address] [place] [address] Bassam Slater Methodology: Comment Normal [facility] Comment on above: Result Comment: This liquid based ThinPrep(R) pap test was screened with the use of an image guided system. Performed at: WB Performed By: #### [id number] #### [facility] [address] [place] [id number] Bassam Slater Note: Comment Normal [facility] Comment on above: Result Comment: The Pap smear is a screening test designed to aid in the detection of premalignant and malignant conditions of the uterine cervix. It is not a diagnostic procedure and should not be used as the sole means of detecting cervical cancer. Both false-positive and false-negative reports do occur. . Performed at: WB Performed By: #### [id number] #### [facility] [address] [place], [place] [id number] Bassam Slater Performed by: Comment Normal [facility] Comment on above: Result Comment: Radha Cesar, Plunger Scoop Operator (ASCP) Performed at: WB Performed By: #### [id number] #### [facility] [address] [place] [address] Bassammalina Slater Specimen adequacy: Comment Normal [facility] Comment on above: Result Comment: Sati sfactory for evaluation. Endocervical and/or squamous metaplastic cells (endocervical component) are present. Performed at: WB Performed By: #### [id number] #### [facility] [address] [place], [place] [id number] Bassammalina Slater CBC AUTO DIFFon 07-26-2020 BASO # 0.1 103/ul Normal 0.0-0.1 [facility] Comment on above: Performed By: #### L BCFSH #### [facility] [address] [place] [address] Bassam Nohemy Basophils/100 WBC (Bld) 1.0 % Normal 0.2-2.0 [facility] Comment on above: Performed By: #### L BCFSH #### [facility] [address] [place], [place] [address] Bassam Nohemy EO # 0.2 103/ul Normal 0.0-0.7 [facility] Comment on above: Performed By: #### L BCFSH #### [facility] [address] [place], [place] [id number] Bassam Nohemy Eosinophils/100 WBC (Bld) 2.6 % Normal 0.9-7.0 [facility] Comment on above: Performed By: #### L BCFSH #### [facility] [address] [place], [place] [id number] Bassammalina Slater Erythrocyte distribution width (RBC) [Ratio] 16.3 % Critically high 11.0-15.0 [facility] Comment on above: Performed By: #### L BCFSH #### [facility] [address] [place] [address] Bassam Slater Hematocrit (Bld) [Volume fraction] 38.5 % Normal 36.0-48.0 [facility] Comment on above: Performed By: #### L BCFSH #### [facility] [address] [place] [address] Bassam Slater Hemoglobin (Bld) [Mass/Vol] 12.1 g/dL Normal 12.0-16.0 [facility] Comment on above: Performed By: #### L BCFSH #### [facility] [address] [place] [address] Bassammalina Slater IG # 0.01 10e3/ul Normal 0.00-0.03 [facility] Comment on above: Performed By: #### L BCFSH #### [facility] [address] [place] [address] Bassammalina Slater IG % 0.1 % Normal 0.0-0.5 [facility] Comment on above: Performed By: #### L BCFSH #### [facility] [address] [place] [address] Bassam Slater LYMPH # 2.6 103/ul Normal 1.2-3.8 [facility] Comment on above: Performed By: #### L BCFSH #### [facility] [address] [place] [address] Bassam Nohemy Lymphocytes/100 WBC (Bld) 31.8 % Normal 20.5-60.0 [facility] Comment on above: Performed By: #### L BCFSH #### [facility] [address] [place] [address] Bassam Leesen MANUAL DIFF REQ NO Normal [facility] Comment on above: Performed By: #### L BCFSH #### [facility] [address] [place] [address] Bassam Nohemy MCH (RBC) [Entitic mass] 25.4 pg Critically low 26.7-34.0 [facility] Comment on above: Performed By: #### L BCFS #### [facility] [address] [place], [place] [id number] Bassam Leesen MCHC (RBC) [Mass/Vol] 31.4 g/dL Normal 29.9-35.2 [facility] Comment on above: Performed By: #### L BCFSH #### [facility] [address] [place], [place] [id number] Bassam Slater MCV (RBC) [Entitic vol] 80.9 fL Critically low 81.0-99.0 [facility] Comment on above: Performed By: #### L BCFSH #### [facility] [address] [place] [address] Bassam Slater MONO # 0.5 103/ul Normal 0.3-0.8 [facility] Comment on above: Performed By: #### L BCFS #### [facility] [address] [place] [address] Bassam Slater Monocytes/100 WBC (Bld) 5.8 % Normal 1.7-12.0 [facility] Comment on above: Performed By: #### L BCFS #### [facility] [address] [place] [address] Bassammalina Slater NEUT # 4.7 103/ul Normal 1.4-6.5 [facility] Comment on above: Performed By: #### L BCFSH #### [facility] [address] [place] [address] Bassam Slater Neutrophils/100 WBC (Bld) 58.7 % Normal 43.0-75.0 [facility] Comment on above: Performed By: #### L BCFSH #### [facility] [address] [place], [place] [id number] Bassammalina Slater Platelet mean volume (Bld) [Entitic vol] 9.5 fL Normal 9.5-13.5 [facility] Comment on above: Performed By: #### L BCFSH #### [facility] [address] [place] [address] Bassammalina Leesen PLT 422 103/ul Normal 150-450 [facility] Comment on above: Performed By: #### [facility] #### [facility] [address] [id number] Bassam Slater RBC 4.76 106/ul Normal 4.20-5.40 [facility] Comment on above: Performed By: #### L BCFS #### [facility] [address] [place], [place] [id number] Bassam Slater WBC 8.1 103/ul Normal 4.0-11.0 [facility] Comment on above: Performed By: #### [facility] #### [facility] [address] [place], [place] [id number] Bassam Slater TSHon 07-26-2020 TSH 4.081 uIU/mL Normal 0.470-4.680 [facility] Comment on above: Performed By: #### T SH #### [facility] [address] [place] [address] Bassam Slater TSH RANGE SEE BELOW Normal [facility] Comment on above: Result Comment: <0.3 4 UIU/ml HYPERTHYROID 0.34-5.60 UIU/ml EUTHYROID >5.60 UIU/ml HYPOTHYROID Performed By: #### T SH #### [facility] [address] [place], [place] [id number] Bassam Slater Vital Signs Date Time Vital Sign Value Performing Clinician Facility 04-06-2022 12:00-0400 Body height 162.56 cm Marko Portillo II Other [facility] Other 04-06-2022 12:00-0400 Body mass index (BMI) [Ratio] 46.86 kg/m2 Marko Portillo II Other [facility] Other 04-06-2022 12:00-0400 Body weight 123.83 kg Marko Portillo II Other [facility] Other 04-04-2022 13:05-0400 Body height 162.56 cm Sis Santa Other [facility] Other 04-04-2022 13:05-0400 Body temperature 98 [degF] Sis Santa Other [facility] Other 04-04-2022 13:05-0400 Diastolic blood pressure 81 mm[Hg] Sis Santa Other [facility] Other 04-04-2022 13:05-0400 Respiratory rate 18 /min Sis Santa Other [facility] Other 04-04-2022 13:05-0400 SaO2% (BldA) [Mass fraction] 100 % Sis Santa Other [facility] Other 04-04-2022 13:05-0400 Systolic blood pressure 127 mm[Hg] Sis Santa Other [facility] Other 05-11-2021 15:00-0500 Body height 162.56 cm Sis Santa Other [facility] Other 05-11-2021 15:00-0500 Body mass index (BMI) [Ratio] 46.34 kg/m2 Sis Santa Other [facility] Other 05-11-2021 15:00-0500 Body temperature 98.4 [degF] Sis Santa Other [facility] Other 05-11-2021 15:00-0500 Body weight 122.47 kg Sis Santa Other [facility] Other 05-11-2021 15:00-0500 Respiratory rate 18 /min Sis Santa Other [facility] Other 05-11-2021 15:00-0500 SaO2% (BldA) [Mass fraction] 96 % Sis Pratt Other [facility] Other 05-06-2021 14:45-0400 Body height 162.56 cm Nicki Ginty Other [facility] Other 05-06-2021 14:45-0400 Body mass index (BMI) [Ratio] 46.34 kg/m2 Nicki Ginty Other [facility] Other 05-06-2021 14:45-0400 Body temperature 98.2 [degF] Nicki Ginty Other [facility] Other 05-06-2021 14:45-0400 Body weight 122.47 kg Nicki Ginty Other [facility] Other 05-06-2021 14:45-0400 SaO2% (BldA) [Mass fraction] 99 % Nicki Ginty Other [facility] Other Encounters Encounter Date Encounter Type Care Provider Facility Start: 09-24-2023 End: 09-24-2023 ambulatory LUCIANA BARRIOS Not Available Start: 07-26-2023 End: 07-26-2023 ambulatory IRENE REID Not Available Start: 05-29-2023 End: 05-29-2023 ambulatory GRIFFIN RAMIREZ Not Available Start: 05-11-2023 Telephone encounter [facility] Start: 04-19-2022 End: 04-19-2022 ambulatory Marko Portillo II Other [facility] Other Start: 04-19-2022 Office outpatient vi sit 25 minutes Marko Shepherd II [facility] Start: 04-13-2022 End: 04-13-2022 ambulatory PHYSICIAN NO [facility] Work Phone: Start: 04-13-2022 End: 04-13-2022 Patient encounter procedure PHYSICIAN NO [facility] [address] Start: 04-07-2022 End: 04-07-2022 ambulatory Marko Portillo II Other [facility] Other Start: 04-07-2022 Telephone encounter Marko Portillo II [facility] Start: 04-06-2022 Office outpatient ne w 45 minutes Marko Carlinisle II [facility] Start: 04-06-2022 End: 04-06-2022 ambulatory PHYSICIAN NO [facility] Facility:[facility] Start: 04-06-2022 End: 04-06-2022 ambulatory PHYSICIAN NO [facility] Work Phone: Start: 04-06-2022 End: 04-06-2022 Patient encounter procedure PHYSICIAN NO [facility] Start: 04-04-2022 Office outpatient vi sit 15 minutes Sis Pratt [facility] Start: 04-04-2022 End: 04-04-2022 ambulatory PHYSICIAN NO [facility] Other Start: 04-04-2022 End: 04-04-2022 Patient encounter procedure PHYSICIAN NO [facility] Start: 07-15-2021 End: 07-15-2021 ambulatory PHYSICIAN NO [facility] Facility:[facility] Start: 06-05-2021 End: 06-06-[address] KENNY HUERTAS Facility:[facility] Start: 05-12-2021 End: 05-12-[address] DOCTOR CEBALLOS Facility:[facility] Start: 05-11-2021 End: 05-11-2021 ambulatory Sis Pratt Other [facility] Other Start: 05-11-2021 Office outpatient vi sit 15 minutes Sis Pratt [facility] Start: 05-06-2021 End: 05-06-2021 ambulatory Nicki England Other [facility] [employer] [facility] [employer] Other Start: 05-06-2021 Office outpatient vi sit 15 minutes Nicki Keetrubelinda [facility] Start: 10-15-[address] LUCIANA BARRIOS Facility :[facility] Start: 10-14-2020 Encounter for other preprocedural examination DR LUCIANA BARRIOS [facility] Start: 10-12-[address] LUCIANA BARRIOS [...] examinati on of knee PHYSICIAN NO FAMILY Plan of Treatment Date Care Activity Detail Author Start: 05-09-2024 Tobacco Screening Tobacco Screening [facility] [employer] [facility] Start: 03-02-2023 Influenza [facility] Start: 1994 Screening for malign ant neoplasm of cervix Pap [facility]ear [facility] Start: 1992 DTaP,Tdap and Td Vaccines (1 - Tdap) DTaP,Tdap and Td Vaccines ( - Tdap) [facility] Start: 11-26-1991 Adult BMI Screening Adult BMI Screen ing [facility] Start: 1985 Depression Screening Depression Scre ening [facility] Payers Date Payer Category Payer Private Health Insurance [facility] [id number] 2022-Present [phone] [address] [address] [place] [address] [id number] 2022 Unknown [id number] 2021 Self-pay [id number] 1973 Unknown [id number] [id number]. 2.593 1973 Unknown [id number] 2.16.840.1.174706.3.579. 2.593 1973 Unknown [id number] 2.16.840.1.941941.3.579. 2.593 1973 Unknown [id number] 2.16.840.1.453322.3.579. 2.593 1973 Unknown [id number] 2.16.840.1.955449.3.579. 2.593 1973 Unknown [id number] 2.16.840.1.765542.3.579. 2.593 1973 Unknown [id number] 2.16.840.1.037880.3.579. 2.593 1973 Unknown [id number] 2.16.840.1.078833.3.579. 2.593 1973 Unknown [id number] 2.16.840.1.022299.3.579. 2.1259 1973 Unknown [id number] 2.16.840.1.087769.3.579. 2.1259 1973 Unknown [id number] 2.16.840.1.369675.3.579. 2.1259 1959 Unknown [id number] Unknown [id number] 2.16.840.1.697339.3.579. 2.531 Unknown [id number] 2.16.840.1.650089.3.579. 2.531 Unknown [id number] 2.16.840.1.965587.3.579. 2.531 Social History Date Type Detail Facility Start: 05-09-2023 Sex Assigned At [facility] [employer] Other Start: 1975 Sex Assigned At Female F [facility] Start: 05-09-2023 Tobacco smoking status NHIS Ex-smoker [facility] History of tobacco use Current smoker [facility] History of tobacco use Cigarette Smoker [facility] Start: 05-09-2023 Tobacco use and exposure Smokeless tobacco non-user [facility] Start: 05-09-2023 Alcohol intake Current drinke r of alcohol (finding) [facility] Start: 05-09-2023 History of Social function [facility] Within the past 12 months we worried whether our food would run out before we got money to buy more. Never True [facility] Start: 05-09-2023 Alcohol Comment rare [facility] Start: 1975 Sex Assigned At Not on file P [facility] Clinical Notes 05-06-2021 to 05-11-2023 Telephone Encounter - MIR Kennedy - 05/11/2023 1:10 PM ESTTelephone Encounter - MIR Kennedy - 05/11/2023 1:10 PM EST Note Date & Type Note Facility 05-11-2023 Miscellaneous Notes Formattin g of this note might be different from the original. Called patient to schedule her colonoscopy for [facility]. Unable to make contact with patient, left voicemail message for patient to call our office back. Called patient to schedule her colonoscopy with Dr. Naranjo for [facility]. Unable to make contact with patient, left voicemail message for patient to call our office back. Called patients emergency contact for unable to make contact with patient to schedule her colonoscopy with Dr. Naranjo for [facility]. Unable to make contact with patients emergency contact, left voicemail message for patients emergency contact to have patient call our office back. Called patients emergency contact for unable to make contact with patient to schedule her colonoscopy with Dr. Naranjo for [facility]. Unable to make contact with patients emergency contact, left voicemail message for patients emergency contact to have patient call our office back. Called patient and patients emergency contact to schedule her colonoscopy with Dr. Naranjo for [facility]. Unable to make contact with patient, left voicemail messages for patient to call our office back. I called the patient today 05/31/23 and left a message to call the office to schedule a colonoscopy at [facility] with Dr. Naranjo. I called Konstantin and left a message to call the office to schedule her procedure at the [facility]. documented in this encounter [facility] [email or web address] 05-11-2023 Telephone encount er Note Called patient to schedule her colonoscopy for [facility]. Unable to make contact with patient, left voicemail message for patient to call our office back. [facility] [employer] [facility] 05-11-2023 Telephone encount er Note Called patient to schedule her colonoscopy with Dr. Naranjo for [facility]. Unable to make contact with patient, left voicemail message for patient to call our office back. [employer] 05-11-2023 Telephone encount er Note Called patients emergency contact for unable to make contact with patient to schedule her colonoscopy with Dr. Naranjo for [facility]. Unable to make contact with patients emergency contact, left voicemail message for patients emergency contact to have patient call our office back. [facility] [employer] 05-11-2023 Telephone encount er Note Called patients emergency contact for unable to make contact with patient to schedule her colonoscopy with Dr. Naranjo for [facility]. Unable to make contact with patients emergency contact, left voicemail message for patients emergency contact to have patient call our office back. [employer] 05-11-2023 Telephone encount er Note Called patient and patients emergency contact to schedule her colonoscopy with Dr. Naranjo for [facility]. Unable to make contact with patient, left voicemail messages for patient to call our office back. [facility] [employer] 05-11-2023 Telephone encount er Note I called the patient today 05/31/23 and left a message to call the office to schedule a colonoscopy at [facility] with Dr. Naranjo. [facility] [employer] 05-11-2023 Telephone encount er Note I called Konstantin and left a message to call the office to schedule her procedure at the [facility]. [facility] 04-19-2022 Evaluation note Encounter Date Diagnosis Assessment [...] well. Follow-up in 6 to 8 weeks. [facility] Other 10-06-2022 Evaluation note* Encounter Date Diagnosis Assessment Notes Treatment Notes Treatment Clinical Notes Apr, Acute pain of left knee [...] months its not controlled with Tylenol oral anti-inflammatories. Given the twisting mechanism as well as [...] was a meniscus tear amenable to fixation. [facility] Other 10-04-2022 Evaluation note* Encounter Date Diagnosis Assessment Notes Treatment Notes Treatment Clinical Notes Apr, Acute pain of left knee [...] no improvement in 5 to 7 days. [facility] Other 12-06-2021 NotePROCEDURE: CTA CHEST WO W CON REASON FOR [...] 3-D images were rendered on a separate [employer] workstation. MIP imaging is also submitted. Images [...] series 4 are not included in the [id number]. AORTA AND VASCULATURE: There is normal caliber [...] Electronically authenticated by: YOLIS WAYNE Date: 2021-06-06 00:43[facility]11-10-2021 Evaluation note* Encounter Date Diagnosis Assessment Notes Treatment Notes Treatment Clinical Notes May, Viral upper respiratory illness (ICD-10 - J06.9) [facility] Other 11-05-2021 Evaluation note* Encounter Date Diagnosis Assessment Notes Treatment Notes Treatment Clinical Notes May, Contact with and (suspected) exposure to other viral communicable diseases (ICD-10 - Z20.828) May, Viral URI with cough (ICD-10 - J06.9) Advised patient that COVID antigen test was negative today. Advised patient that will tx as viral URI. Supportive care as directed, increase fluids and rest, Tylenol/Motrin as directed, [place] and Flonase as directed, cool mist humidifier, throat lozenges. Advised patient that [place] contains cough suppressant and antihistamine and to [...] to keep fluids or food down, persistent vomiting/diarrhea) , abdominal pain, lethargy, severe headache. Patient was [...] Patient care instructions given in writting by [facility] Care At Home document [facility] [employer] Other Evaluation noteNo assessment information available [facility] Work Phone: Evaluation noteNo InformationNortDepartment of Veterans Affairs [facility] [employer] Other History general Narrative - Reported* Type Description Date Medical History chronic depression Surgical History pilonidal cyst Surgical History abscess on neck [employer] [facility] [employer] Other InstructionsNot on filedocumented in this encounter [facility] Summary Purpose Family History No Family History [...] content) DATE CREATED AUTHOR 06/08/2021 [facility] DATE CREATED AUTHOR AUTHOR'S ORGANIZ ATION 04/11/2022 [facility] DATE CREATED AUTHOR AUTHOR'S ORGANIZ ATION 09/25/2023 [facility] EPIC REASON FOR VISIT (unrecogniz ed section and content) #20 ANTHONY MALIBU, H/A, SORE THROAT, COUGH, CONGESTION#21 MAROON MALIBU, COUGH, CONGESTION, H/A GETTING WORSELEFT KNEE PAINCLYDE UC LT KNEE PAIN SWELLING WXOrthopedic Office NotesF/U MRI [facility] Care Teams (unrecognized sec tion and content) Team Status: Inactive Member Role Status Dates PHYSICIAN NO FAMILY Primary Care Provider Active [employer] Dimas Attending Provider Active Team Status: Active Member Role Status Dates PHYSICIAN NO FAMILY Primary Care Provider Active Team Status: Inactive Member Role Status Dates PHYSICIAN NO FAMILY Primary Care Provider Active Marko Portillo II, MD Attending Provider Active [employer] Relationship Specialty Start Date End Date No Pcp, [place] [address] PCP - General Family Medicine 05/09/23 Goals (unrecognized section and content) Goals may [...] BE BASED ON THE PRIMARY CLINICAL RECORDS. [employer] provides no warranty or guarantee of the accuracy or completeness of information in this document.
[2023-10-09 09:56] LABS: Basophils Absolute Auto 0.1 10^3/uL (0.0-0.1); Basophils Percent Auto 1.2 % (0.2-2.0); Eosinophils Absolute Auto 0.2 10^3/uL (0.0-0.7); Eosinophils Percent Auto 3.5 % (0.9-7.0); Hematocrit 38.1 % (36.0-48.0); Hemoglobin 11.8 g/dL (12.0-16.0); Immature Granulocytes Abs Auto 0.02 10^3/uL (0.00-0.03); Immature Granulocytes Pct Auto 0.4 % (0.0-0.5); Lymphocytes Absolute Auto 1.5 10^3/uL (1.2-3.8); Lymphocytes Percent Auto 30.6 % (20.5-60.0); Mean Corpuscular Hemoglobin 26.3 pg (26.7-34.0); Mean Corpuscular Volume 84.9 fL (81.0-99.0); Mean Platelet Volume 9.6 fL (9.5-13.5); Monocytes Absolute Auto 0.3 10^3/uL (0.3-0.8); Monocytes Percent Auto 6.2 % (1.7-12.0); Neutrophils Absolute Auto 2.8 10^3/uL (1.4-6.5); Neutrophils Percent Auto 58.1 % (43.0-75.0); Platelet Count 336 10^3/uL (150-450); Red Blood Count 4.49 10^6/uL (4.20-5.40); Red Cell Distribution Width 15.2 % (11.0-15.0); White Blood Count 4.8 10^3/uL (4.0-11.0)
[2023-10-09 10:06] LABS: INR 0.94; Partial Thromboplastin Time 29.6 sec (22.3-36.2)
[2023-10-09 10:09] LABS: Alanine Aminotransferase 29 U/L (14-59); Albumin Globulin Ratio 0.8; Albumin Level 3.4 g/dL (3.4-5.0); Alkaline Phosphatase 80 U/L (46-116); Anion Gap 13.2; Aspartate Amino Transferase 15 U/L (15-37); BUN Creatinine Ratio 16.9; Bilirubin Direct <0.1 mg/dL (0.0-0.2); Bilirubin Total 0.2 mg/dL (0.2-1.0); Carbon Dioxide 26.8 mmol/L (21.0-32.0); Chloride 103 mmol/L (98-107); Estimated GFR (African America >60 (>=60); Estimated GFR (Non-African Ame >60 (>=60); Globulin 4.1 g/dL; Glucose 97 mg/dL (74-106); Sodium 139 mmol/L (136-145); Total Protein 7.5 g/dL (6.4-8.2)
== END 2023-10-09 09:03 | disposition home or self-care (01) ==
PROVIDERS: Visit Provider Obstetrics & Gynecology
DX: Z01.810 Encounter for preprocedural cardiovascular examination (principal); N92.0 Excessive and frequent menstruation with regular cycle; R10.2 Pelvic and perineal pain; N94.6 Dysmenorrhea, unspecified; N94.10 Unspecified dyspareunia
CPT/HCPCS: 80048; 80076; 85025; 85610; 85730

== ENCOUNTER 2023-10-22 15:35 | Outpatient (OUT) | payer OTHER, SELFPAY | END 2023-10-22 15:36 | disposition home or self-care (01) | LOC: LAB 15:35 | PROVIDERS: Visit Provider Obstetrics & Gynecology | DX: Z01.812 Encounter for preprocedural laboratory examination (principal); N92.0 Excessive and frequent menstruation with regular cycle; R10.2 Pelvic and perineal pain; N94.6 Dysmenorrhea, unspecified; N94.10 Unspecified dyspareunia | CPT/HCPCS: 36415; 86850; 86900; 86901 ==

== ENCOUNTER 2023-10-24 05:55 | Day surgery (SDC) | payer OTHER, SELFPAY ==
--- OUTSIDE RECORDS SUMMARY | 2023-10-09 09:35 | XMS_ITS | CCD ---
Author Organization [facility] Care Team Providers Care Competitive Athlete Name Role Phone SOPHIE, DR CHOWDHURY Admitting [...] Care Provider Unava DOT Ramey Attending Provider [phone] MD Marko Portillo II Attending Provider Marko Portillo II Unavailable [phone] NO FAMILY, PHYSICIAN Primary Care Unavailable Jackson [...] (1 source) Ciprofloxacin Drug Allergy 8 [facility] (1 source) Vancomycin Drug Allergy 8 [facility] (7 sources) Ciprofloxacin Drug Allergy 3 2,10E+07 Work Phone: (7 sources) Vancomycin Drug Allergy 3 [employer] Other Medications Current Medications Medication Drug Class(es) Dates Sig (Normalized) Sig (Original) [id number] 200 actuat albuterol 0.09 mg/actuat metered dose [...] oral tablet (1 source) alpha-Adrenergic Agonist, Uncompetitive C-ohwvfu-Y-aspartat e Receptor Antagonist, Sigma-1 Agonist Start: 05-11-2021 Capmist DM 60-15-400 MG 1 tablet at 4 hour intervals as needed Orally Four times a day for 10 day(s) May, Active dextromethorphan hydrobromide 1.5 mg/ml / pyrilamine maleate 1.5 mg/ml oral solution (2 sources) Uncompetitive X-uvtwmh-X-aspartat e Receptor Antagonist, Sigma-1 Agonist Start: 05-06-2021 take 20 mL by mouth every eight hours Seneca DM 7.5-7.5 MG/5ML 20 mL Orally every [...] LT 4V*on 04-06-2022 XR knee LT 4V* [facility] Main [place] [address] [place] [address] XRay Report Signed Patient: Konstantin Bartlett MR#: [id number] 978 : 1975 Acct:[id number] Age/Sex: 46 / F ADM Date: 04/06/22 Loc: [facility] [place] Room: Type: [facility] Attending Dr: Marko Portillo II, MD Copies to: Marko Portillo MD Ordering Provider: Marko Portillo MD Date of Service: 04/06/22 XR/XR knee LT 4V*: Acute pain of left knee ([id number]) XR/XR pelvis 1-2V: Acute pain of left [...] Nohemy Loza M.D.04/06/2022 3:16 PM Dictation Location: [place] [address] Transcribed By: CORINE 04/06/22 1516 Dictated By: Nohemy Loza MD 04/06/22 1513 Signed By: 04/06/22 1516 [facility] XR knee LT 4V*on 04-04-2022 XR knee LT 4V* [facility] Main [address] [address] XRay Report Signed Patient: Konstantin Bartlett MR#: [id number] 978 : 1975 Acct:[id number] Age/Sex: 46 / F ADM Date: 04/04/22 Loc: [facility] Room: Type: [facility] Attending Dr: Sis CHRIS Copies to: [...] Jasen Starkey M.D.04/04/2022 12:53 PM Dictation Location: [place] [address] Transcribed By: CORINE 04/04/22 1253 Dictated By: Jasen Starkey II, MD 04/04/22 1249 Signed By: 04/04/22 1253 [facility] XR knee LT 4V* [facility] [email or web address] Other XR knee LT 4V* [facility] [email or web address] Other XR knee LT 4V* [address] [place] [address] [email or web address] Other XR knee LT 4V* [place] [address] No rt [employer] Other XR knee LT 4V* XRay Report Tier 3 Other XR knee LT 4V* Signed [employer] Other XR knee LT 4V* Patient: Konstantin Bartlett MR#: [id number] [employer] Other XR knee LT 4V* 978 [employer] Other XR knee LT 4V* : 1975 Acct:[id number] [employer] Other XR knee LT 4V* Age/Sex: 46 / F ADM Date: 04/04/22 [employer] Other XR knee LT 4V* Loc: [facility] Room: Type: REG CLI [employer] Other XR knee LT 4V* Attending Dr: Sis CHRIS [employer] Other XR knee LT 4V* Copies to: DOT Mackenzie [employer] Other XR knee LT 4V* Ordering Provider: DOT Mackenzie [employer] Other XR knee LT 4V* Date of Service: 04/04/22 [employer] Other XR knee LT 4V* XR/XR knee LT 4V*: Acute pain of left knee [employer] Other XR knee LT 4V* XR knee LT 4V* 04/04/2022 12:28 PM [employer] Other XR knee LT 4V* SIGNS AND SYMPTOMS: Left knee pain [employer] Other XR knee LT 4V* PROTOCOL: Frontal, lateral, and oblique radiographs of the left knee [employer] Other XR knee LT 4V* COMPARISON: None Nort [employer] Other XR knee LT 4V* FINDINGS: [employer] Other XR knee LT 4V* There is mild narrowing of the weightbearing and patellofemoral joint spaces. There is [employer] Other XR knee LT 4V* enthesophyte formation at the poles of the patella. There is no joint effusion or soft tissue [employer] Other XR knee LT 4V* swelling. No fractur e or dislocation. [employer] Other XR knee LT 4V* XR/XR knee LT 4V* [employer] Other XR knee LT 4V* IMPRESSION: Tier 3 Other XR knee LT 4V* Mild tricompartmenta l degenerative changes are noted. [employer] Other XR knee LT 4V* No acute bony injury. [employer] Other XR knee LT 4V* Impression dictated by: Jasen Starkey M.D.04/04/2022 12:53 PM [employer] Other XR knee LT 4V* Dictation Location: [place] [address] [employer] Other XR knee LT 4V* Transcribed By: CORINE 04/04/22 1253 [employer] Other XR knee LT 4V* Dictated By: Jasen Starkey II, MD 04/04/22 1249 [employer] Other XR knee LT 4V* Signed By: [employer] Other XR knee LT 4V* 04/04/22 1253 [employer] Other COVID-19 Antigenon 01-14-202 2 COVID-19 Antigen [...] its performance Alfreda Disclaimer characteristic determined by [employer] and Alfreda Disclaimer validated at [facility]. This Alfreda Disclaimer test has not [...] is terminated or revoked sooner. PERFORMED BY: [place] [address] PATHOLOGIST CAUL PULLER JUAN MANUEL MAYORGA M.D. Normal [facility] Comment on above: Performed By: #### C OVID-19 ALFREDA, SOFIAPOS #### [address] Alfreda Ag Positiveon 07-15-19 22 Alfreda Ag Positive Positive Critically abnormal Negative [facility] Comment on above: Result Comment: This is a duplicate Alfreda SARS Antigen (ABHISHEK) result to be used for statistical tracking purpose only. PERFORMED BY: [place] [address] PATHOLOGIST CAUL PULLER JUAN MANUEL MAYORGA M.D. Performed By: #### C OVID-19 ALFREDA, SOFIAPOS #### [facility] [address] [place] [address] CARDIAC JASEN ADMITon 021 CK [Catalytic activity/Vol] 114 U/L Normal 30-135 [facility] Comment on above: Performed By: #### B DARIO MCCOY #### [facility] [address] [place] [address] Dr. Amy Cantu CK.MB [Mass/Vol] 0.95 ng/mL Normal <=2.37 [facility] Comment on above: Performed By: #### Osei MCCOY CMADM #### [facility] [address] [place] [address] Dr. Amy Cantu HSTROP 6.1 pg/mL Normal 4.0-35.5 [facility] Comment on above: Result Comment: CUT- OFF POINTS HAVE BEEN ESTABLISHED BASED ON THE FOURTH UNIVERSAL DEFINITIONS OF MYOCARDIAL INFARCTION. THE UPPER REFERENCE LIMIT (URL) OF TROPONIN, DEFINED THE 99TH PERCENTILE OF cTnI DISTRIBUTION IN A REFERENCE POPULATION, HAS BEEN CONFIRMED THE DECISION THRESHOLD FOR [place] DIAGNOSIS. Performed By: #### B NADINE, CMADM #### [facility] [address] [place] [address] Dr. Amy Cantu JUVE 43.0 ng/mL Normal <=61.5 [facility] Comment on above: Performed By: #### B NADINE, EDWINDM #### [facility] [address] [place] [address] Dr. Amy Cantu CBC AUTO DIFFon 06-05-2021 BASO # 0.1 103/ul Normal 0.0-0.1 [facility] Comment on above: Performed By: #### C BC #### [facility] [address] [place] [address] Dr. Amy Cantu Basophils/100 WBC (Bld) 0.9 % Normal 0.2-2.0 [facility] Comment on above: Performed By: #### C BC #### [facility] [address] [place] [address] Dr. Amy Cantu EO # 0.2 103/ul Normal 0.0-0.7 [facility] Comment on above: Performed By: #### C BC #### [facility] [address] [place] [address] Dr. Amy Cantu Eosinophils/100 WBC (Bld) 3.1 % Normal 0.9-7.0 [facility] Comment on above: Performed By: #### C BC #### [facility] [address] [place] [address] Dr. Amy Cantu Erythrocyte distribution width (RBC) [Ratio] 16.8 % Critically high 11.0-15.0 [facility] Comment on above: Performed By: #### C BC #### [facility] [address] [place] [address] Dr. Amy Cantu Hematocrit (Bld) [Volume fraction] 32.1 % Critically low 36.0-48.0 [facility] Comment on above: Performed By: #### C BC #### [facility] [address] [place] [address] Dr. Amy Cantu Hemoglobin (Bld) [Mass/Vol] 9.6 g/dL Critically low 12.0-16.0 [facility] Comment on above: Performed By: #### C BC #### [facility] [address] [place] [address] Dr. Amy Cantu IG # 0.03 10e3/ul Normal 0.00-0.03 [facility] Comment on above: Performed By: #### C BC #### [facility] [address] [place] [address] Dr. Amy Cantu IG % 0.5 % Normal 0.0-0.5 [facility] Comment on above: Performed By: #### C BC #### [facility] [address] [place] [address] Dr. Amy Cantu LYMPH # 1.8 103/ul Normal 1.2-3.8 [facility] Comment on above: Performed By: #### C BC #### [facility] [address] [place] [address] Dr. Amy Cantu Lymphocytes/100 WBC (Bld) 28.5 % Normal 20.5-60.0 [facility] Comment on above: Performed By: #### C BC #### [facility] [address] [place] [address] Dr. Amy Cantu MANUAL DIFF REQ NO Normal [facility] Comment on above: Performed By: #### C BC #### [facility] [address] [place] [address] Dr. Amy Cantu MCH (RBC) [Entitic mass] 23.3 pg Critically low 26.7-34.0 [facility] Comment on above: Performed By: #### C BC #### [facility] [address] [place] [address] Dr. Amy Cantu MCHC (RBC) [Mass/Vol] 29.9 g/dL Normal 29.9-35.2 [facility] Comment on above: Performed By: #### C BC #### [facility] [address] [place] [address] Dr. Amy Cantu MCV (RBC) [Entitic vol] 77.9 fL Critically low 81.0-99.0 [facility] Comment on above: Performed By: #### C BC #### [facility] [address] [place] [address] [address] Amy Cantu MONO # 0.7 103/ul Normal 0.3-0.8 [facility] Comment on above: Performed By: #### C BC #### [facility] [address] [place] [address] [address] Amy Cantu Monocytes/100 WBC (Bld) 11.3 % Normal 1.7-12.0 [facility] Comment on above: Performed By: #### C BC #### [facility] [address] [place] [address] [address] Amy Cantu NEUT # 3.6 103/ul Normal 1.4-6.5 [facility] Comment on above: Performed By: #### C BC #### [facility] [address] [place] [address] Dr. Amy Cantu Neutrophils/100 WBC (Bld) 55.7 % Normal 43.0-75.0 [facility] Comment on above: Performed By: #### C BC #### [facility] [address] [place] [address] [address] Amy Cantu Platelet mean volume (Bld) [Entitic vol] 9.5 fL Normal 9.5-13.5 [facility] Comment on above: Performed By: #### C BC #### [facility] [address] [place] [address] Dr. Amy Cantu PLT 396 103/ul Normal 150-450 [facility] Comment on above: Performed By: #### C BC #### [facility] [address] [place] [address] [address] Amy Cantu RBC 4.12 106/ul Critically low 4.20-5.40 [facility] Comment on above: Performed By: #### C BC #### [facility] [address] [place] [address] [address] Amy Cantu WBC 6.5 103/ul Normal 4.0-11.0 [facility] Comment on above: Performed By: #### C BC #### [facility] [address] [place] [address] Dr. Amy Cantu Covid-19 PCR (CVDTB)on SARS-CoV-2 (COVID-19) RNA MAYRA+probe Ql (Unsp spec) Not detected Normal NOT DETECTED [facility] Comment on above: Result Comment: This test is not yet approved or cleared by the [place] FDA. When there are no FDA-approved or cleared tests available, and other criteria are met, FDA can make tests available under an emergency access mechanism called an Emergency Use Authorization (EUA). The EUA for this test is supported by the Sales And Service Agent of Health and Human Service's (HHS's) declaration [...] SARS-CoV-2. Performed By: #### C VDTB #### [facility] [address] [place] [address] Dr. Amy Cantu D-DIMERon 06-05-2021 D-DIMER 0.81 mg/L FEU Critically high 0.19-0.50 [facility] Comment on above: Performed By: #### L BCFS #### [facility] [address] [place] [address] Bassam Slater D-DIMER COMMENTS SEE BELOW Normal [facility] Comment on above: Result [...] and generalized hospitalization. Performed By: #### L [facility] #### [facility] [address] [place] [address] Bassam Slater PROF CHEM 8 (BAS METB)on Anion gap [Moles/Vol] 9.1 mmol/L Normal [facility] Comment on above: Performed By: #### B NADINE, EDWINDM #### [facility] [address] [place] [address] Dr. Amy Cantu Calcium [Mass/Vol] 9.0 mg/dL Normal 8.4-10.2 [facility] Comment on above: Performed By: #### B EDWIN MCCOYDM #### [facility] [address] [place] [address] Dr. Amy Cantu Chloride [Moles/Vol] 103 mmol/L Normal 98-107 [facility] Comment on above: Performed By: #### B EDWIN MCCOYDM #### [facility] [address] [place] [address] Dr. Amy Cantu CO2 [Moles/Vol] 26.7 mmol/L Normal 22.0-30.0 [facility] Comment on above: Performed By: #### B EDWIN MCCOYDM #### [facility] [address] [place] [address] Dr. Amy Cantu Creatinine [Mass/Vol] 0.99 mg/dL Normal 0.52-1.04 [facility] Comment on above: Performed By: #### B DARIO MCCOY #### [facility] [address] [place] [address] Dr. Amy Cantu EGFR-AF KAZAKH >60 Normal >=60 [facility] Comment on above: Performed By: #### B EDWIN MCCOYDM #### [facility] [address] [place] [address] Dr. Amy Cantu EGFR-NON AF KAZAKH =60 Normal >=60 [facility] Comment on above: Performed By: #### B DARIO MCCOY #### [facility] [address] [place] [address] Dr. Amy Cantu Glucose [Mass/Vol] 135 mg/dL Critically high 74-106 [facility] Comment on above: Performed By: #### B NADINE, CMADM #### [facility] [address] [place] [address] Dr. Amy Cantu Potassium [Moles/Vol] 3.8 mmol/L Normal 3.4-5.0 [facility] Comment on above: Performed By: #### B NADINE, CMADM #### [facility] [address] [place] [address] Dr. Amy Cantu Sodium [Moles/Vol] 135 mmol/L Critically low 137-145 [facility] Comment on above: Performed By: #### B NADINE, EDWINDM #### [facility] [address] [place] [address] Dr. Amy Cantu Urea nitrogen [Mass/Vol] 17.0 mg/dL Normal 7.0-17.0 [facility] Comment on above: Performed By: #### B NADINE, EDWINDM #### [facility] [address] [place] [address] Dr. Amy Cantu Urea nitrogen/Creatini ne [Mass ratio] 17.2 mg/mg Normal [facility] Comment on above: Performed By: #### B NADINE, EDWINDM #### [facility] [address] [place] [address] Dr. Amy Cantu Covid-19 PCR ([facility])on 05-02 SARS-CoV-2 (COVID-19) RNA MAYRA+probe Ql (Unsp spec) Not detected Normal NOT DETECTED [facility] Comment on above: Result Comment: This test is not yet approved or cleared by the [place] FDA. When there are no FDA-approved or cleared tests available, and other criteria are met, FDA can make tests available under an emergency access mechanism called an Emergency Use Authorization (EUA). The EUA for this test is supported by the [place] of Health and Human Service's (HHS's) declaration [...] SARS-CoV-2. Performed By: #### C VDTB #### [facility] [address] [place], [place] [address] Dr. Amy Cantu US PELVIS TRANSVAGon 021 [...] by: ERON GARCIA Date: 2020-08-19 15:17 Normal [facility] FSHon 07-27-2020 FSH 4.6 mIU/mL Normal [facility] Comment on above: Result Comment: Adul t Female: Follicular phase 3.5 - 12.5 Ovulation phase 4.7 - 21.5 Luteal phase 1.7 - 7.7 Postmenopausal 25.8 - 134.8 Performed By: #### L BCFS #### [facility] [address] [place], [place] [address] Bassam Slater LUTEINIZING HORMONE (LH)on 0 07-27-2020 LH 7.8 mIU/mL Normal [facility] Comment on above: Result Comment: Adul t Female: Follicular phase 2.4 - 12.6 Ovulation phase 14.0 - 95.6 Luteal phase 1.0 - 11.4 Postmenopausal 7.7 - 58.5 Performed By: #### L [facility] #### [facility] [address] [place] [address] Bassam Slater PAP ACOG PANEL 2: 30 to 65on 07-27-2020 . . Normal [facility] Comment on above: Result Comment: Perf ormed at: WB Performed By: #### [id number] #### [facility] [address] [place] [address] Bassam Slater Age Gdln ACOG Testing 30-65 [facility] Comment on above: Performed By: #### [id number] #### [facility] [address] [place] [address] Bassam Slater DIAGNOSIS: Comment Normal [facility] Comment on above: Result Comment: NEGA TIVE FOR INTRAEPITHELIAL LESION OR MALIGNANCY. Performed at: WB Performed By: #### [id number] #### [facility] [address] [place] [address] Bassam Slater HPV Aptima Negative Normal Negative [facility] Comment on above: Result Comment: This nucleic acid amplification test detects fourteen high-risk HPV types (16,18,31,33,35,39,45,51,52,56,58,59,66,68) without differentiation. Performed at: =G Performed By: #### [id number] #### [facility] [address] [place] [address] Bassam Sltaer Methodology: Comment Normal [facility] Comment on above: Result Comment: This liquid based ThinPrep(R) pap test was screened with the use of an image guided system. Performed at: WB Performed By: #### [id number] #### [facility] [address] [place] [id number] Bassam Slater Note: Comment Normal [facility] Comment on above: Result Comment: The Pap smear is a screening test designed to aid in the detection of premalignant and malignant conditions of the uterine cervix. It is not a diagnostic procedure and should not be used as the sole means of detecting cervical cancer. Both false-positive and false-negative reports do occur. . Performed at: WB Performed By: #### [id number] #### [facility] [address] [place], [place] [address] Bassam Slater Performed by: Comment Normal [facility] Comment on above: Result Comment: Radha Cesar, Lecturer Of Portuguese (ASCP) Performed at: WB Performed By: #### [id number] #### [facility] [address] [place] [address] Bassammalina Slater Specimen adequacy: Comment Normal [facility] Comment on above: Result Comment: Sati sfactory for evaluation. Endocervical and/or squamous metaplastic cells (endocervical component) are present. Performed at: WB Performed By: #### [id number] #### [facility] [address] [place], [place] [address] Bassammalina Slater CBC AUTO DIFFon 07-26-2020 BASO # 0.1 103/ul Normal 0.0-0.1 [facility] Comment on above: Performed By: #### L BCFSH #### [facility] [address] [place] [address] Bassam Nohemy Basophils/100 WBC (Bld) 1.0 % Normal 0.2-2.0 [facility] Comment on above: Performed By: #### L BCFSH #### [facility] [address] [place], [place] [address] Bassam Nohemy EO # 0.2 103/ul Normal 0.0-0.7 [facility] Comment on above: Performed By: #### L BCFSH #### [facility] [address] [place], [place] [address] Bassam Nohemy Eosinophils/100 WBC (Bld) 2.6 % Normal 0.9-7.0 [facility] Comment on above: Performed By: #### L BCFSH #### [facility] [address] [place], [place] [address] Bassammalina Slater Erythrocyte distribution width (RBC) [Ratio] 16.3 % Critically high 11.0-15.0 [facility] Comment on above: Performed By: #### L BCFSH #### [facility] [address] [place] [address] Bassam Slater Hematocrit (Bld) [Volume fraction] 38.5 % Normal 36.0-48.0 [facility] Comment on above: Performed By: #### L BCFSH #### [facility] [address] [place] [address] Bassam Slater Hemoglobin (Bld) [Mass/Vol] 12.1 g/dL Normal 12.0-16.0 [facility] Comment on above: Performed By: #### L BCFSH #### [facility] [address] [place] [address] Bassammalina Slater IG # 0.01 10e3/ul Normal 0.00-0.03 [facility] Comment on above: Performed By: #### L BCFSH #### [facility] [address] [place] [address] Bassammalina Slater IG % 0.1 % Normal 0.0-0.5 [facility] Comment on above: Performed By: #### L BCFSH #### [facility] [address] [place] [address] Bassam Slater LYMPH # 2.6 103/ul Normal 1.2-3.8 [facility] Comment on above: Performed By: #### L BCFSH #### [facility] [address] [place] [address] Bassam Nohemy Lymphocytes/100 WBC (Bld) 31.8 % Normal 20.5-60.0 [facility] Comment on above: Performed By: #### L BCFSH #### [facility] [address] [place] [address] Bassam Leesen MANUAL DIFF REQ NO Normal [facility] Comment on above: Performed By: #### L BCFSH #### [facility] [address] [place] [address] Bassam Nohemy MCH (RBC) [Entitic mass] 25.4 pg Critically low 26.7-34.0 [facility] Comment on above: Performed By: #### L BCFS #### [facility] [address] [place], [place] [address] Bassam Leesen MCHC (RBC) [Mass/Vol] 31.4 g/dL Normal 29.9-35.2 [facility] Comment on above: Performed By: #### L BCFSH #### [facility] [address] [place], [place] [address] Bassam Slater MCV (RBC) [Entitic vol] 80.9 fL Critically low 81.0-99.0 [facility] Comment on above: Performed By: #### L BCFSH #### [facility] [address] [place] [address] Bassam Slater MONO # 0.5 103/ul Normal 0.3-0.8 [facility] Comment on above: Performed By: #### L BCFS #### [facility] [address] [place] [address] Bassam Slater Monocytes/100 WBC (Bld) 5.8 % Normal 1.7-12.0 [facility] Comment on above: Performed By: #### L BCFS #### [facility] [address] [place] [address] Bassammalina Slater NEUT # 4.7 103/ul Normal 1.4-6.5 [facility] Comment on above: Performed By: #### L BCFSH #### [facility] [address] [place] [address] Bassam Slater Neutrophils/100 WBC (Bld) 58.7 % Normal 43.0-75.0 [facility] Comment on above: Performed By: #### L BCFSH #### [facility] [address] [place], [place] [address] Bassammalina Slater Platelet mean volume (Bld) [Entitic vol] 9.5 fL Normal 9.5-13.5 [facility] Comment on above: Performed By: #### L BCFSH #### [facility] [address] [place] [address] Bassammalina Leesen PLT 422 103/ul Normal 150-450 [facility] [facility] Comment on above: Performed By: #### [facility] #### [facility] [address] [id number] Bassam Slater RBC 4.76 106/ul Normal 4.20-5.40 [facility] Comment on above: Performed By: #### L BCFS #### [facility] [address] [place], [place] [id number] Bassam Slater WBC 8.1 103/ul Normal 4.0-11.0 [facility] Comment on above: Performed By: #### [facility] #### [facility] [address] [place], [place] [id number] Bassam Slater TSHon 07-26-2020 TSH 4.081 uIU/mL Normal 0.470-4.680 [facility] Comment on above: Performed By: #### T SH #### [facility] [address] [place] [address] Bassam Slater TSH RANGE SEE BELOW Normal [facility] Comment on above: Result Comment: <0.3 4 UIU/ml HYPERTHYROID 0.34-5.60 UIU/ml EUTHYROID >5.60 UIU/ml HYPOTHYROID Performed By: #### T SH #### [facility] [address] [place], [place] [id number] Bassam Slater Vital Signs Date Time Vital Sign Value Performing Clinician Facility 04-06-2022 12:00-0400 Body height 162.56 cm Marko Portillo II Other [facility] Other 04-06-2022 12:00-0400 Body mass index (BMI) [Ratio] 46.86 kg/m2 Marko Portillo II Other [facility] Other 04-06-2022 12:00-0400 Body weight 123.83 kg Marko Portillo II Other [facility] Other 04-04-2022 13:05-0400 Body height 162.56 cm Sis Santa Other [facility] Other 04-04-2022 13:05-0400 Body temperature 98 [degF] Sis Santa Other [facility] Other 04-04-2022 13:05-0400 Diastolic blood pressure 81 mm[Hg] Sis Santa Other [facility] Other 04-04-2022 13:05-0400 Respiratory rate 18 /min Sis Santa Other [facility] Other 04-04-2022 13:05-0400 SaO2% (BldA) [Mass fraction] 100 % Sis Santa Other [facility] Other 04-04-2022 13:05-0400 Systolic blood pressure 127 mm[Hg] Sis Santa Other [facility] Other 05-11-2021 15:00-0500 Body height 162.56 cm Sis Santa Other [facility] Other 05-11-2021 15:00-0500 Body mass index (BMI) [Ratio] 46.34 kg/m2 Sis Santa Other [facility] Other 05-11-2021 15:00-0500 Body temperature 98.4 [degF] Sis Santa Other [facility] Other 05-11-2021 15:00-0500 Body weight 122.47 kg Sis Santa Other [facility] Other 05-11-2021 15:00-0500 Respiratory rate 18 /min Sis Santa Other [facility] Other 05-11-2021 15:00-0500 SaO2% (BldA) [Mass fraction] 96 % Sis Pratt Other [facility] Other 05-06-2021 14:45-0400 Body height 162.56 cm Nicki Ginty Other [facility] Other 05-06-2021 14:45-0400 Body mass index (BMI) [Ratio] 46.34 kg/m2 Nicki Ginty Other [facility] Other 05-06-2021 14:45-0400 Body temperature 98.2 [degF] Nicki Ginty Other [facility] Other 05-06-2021 14:45-0400 Body weight 122.47 kg Nicki Ginty Other [facility] Other 05-06-2021 14:45-0400 SaO2% (BldA) [Mass fraction] 99 % Nicki Ginty Other [facility] Other Encounters Encounter Date Encounter Type Care Provider Facility Start: 09-24-2023 End: 09-24-2023 ambulatory LUCIANA BARRIOS Not Available Start: 07-26-2023 End: 07-26-2023 ambulatory IRENE REID Not Available Start: 05-29-2023 End: 05-29-2023 ambulatory GRIFFIN RAMIREZ Not Available Start: 05-11-2023 Telephone encounter [facility] Start: 04-19-2022 End: 04-19-2022 ambulatory Marko Portillo II Other [facility] Other Start: 04-19-2022 Office outpatient vi sit 25 minutes Marko Hazel Hurst II [facility] Start: 04-13-2022 End: 04-13-2022 ambulatory PHYSICIAN NO [facility] Work Phone: Start: 04-13-2022 End: 04-13-2022 Patient encounter procedure PHYSICIAN NO [facility] [address] Start: 04-07-2022 End: 04-07-2022 ambulatory Marko Portillo II Other [facility] Other Start: 04-07-2022 Telephone encounter Marko Portillo II [facility] Start: 04-06-2022 Office outpatient ne w 45 minutes Marko Carlinisle II [facility] Start: 04-06-2022 End: 04-06-2022 ambulatory PHYSICIAN NO [facility] Facility:[facility] Start: 04-06-2022 End: 04-06-2022 ambulatory PHYSICIAN NO [facility] Work Phone: Start: 04-06-2022 End: 04-06-2022 Patient encounter procedure PHYSICIAN NO [facility] Start: 04-04-2022 Office outpatient vi sit 15 minutes Sis Pratt [facility] Start: 04-04-2022 End: 04-04-2022 ambulatory PHYSICIAN NO [facility] Other Start: 04-04-2022 End: 04-04-2022 Patient encounter procedure PHYSICIAN NO [facility] Start: 07-15-2021 End: 07-15-2021 ambulatory PHYSICIAN NO [facility] Facility:[facility] Start: 06-05-2021 End: 06-06-[address] KENNY HUERTAS Facility:[facility] Start: 05-12-2021 End: 05-12-[address] DOCTOR CEBALLOS Facility:[facility] Start: 05-11-2021 End: 05-11-2021 ambulatory Sis Pratt Other [facility] Other Start: 05-11-2021 Office outpatient vi sit 15 minutes Sis Pratt [facility] Start: 05-06-2021 End: 05-06-2021 ambulatory Nicki England Other [place] [employer] Other Start: 05-06-2021 Office outpatient vi sit 15 minutes Nicki Keetrubelinda [facility] Start: 10-15-[address] LUCIANA BARRIOS Facility :[facility] Start: 10-14-2020 Encounter for other preprocedural examination DR LUCIANA BARRIOS [facility] Start: 10-12-[address] LUCIANA BARRIOS Facility :[facility] Start: 10-07-2020 End: 10-08-[address] LUCIANA BARRIOS Facility:[facility] Start: 10-07-2020 End: 10-08-2020 Encounter for other preprocedural examination DR LUCIANA BARRIOS Facility:[facility] Start: 08-19-2020 End: 08-20-[address] LUCAINA BARRIOS Facility:[facility] Start: 07-26-2020 End: 07-27-2020 ambulatory [...] Author Start: 05-09-2024 Tobacco Screening Tobacco Screening [facility] [employer] [facility] Start: 03-02-2023 Influenza vaccination Influenza Vacc [facility]e [facility] Start: 1994 Screening for malign ant neoplasm of cervix Pap Smear [facility] Start: 1992 DTaP,Tdap and Td Vaccines (1 - Tdap) DTaP,Tdap and Td Vaccines ( - Tdap) [facility] Start: 11-26-1991 Adult BMI Screening Adult BMI Screen ing [facility] Start: 1985 Depression Screening Depression Scre ening [facility] Payers Date Payer Category Payer Private Health Insurance [facility] [place] [facility] [id number] 2022-Present [phone] [address] [address] [place] [address] [id number] 2022 Unknown [id number] 2021 Self-pay [id number] 1973 Unknown [id number] [id number]. 2.593 1973 Unknown [id number] 2.16.840.1.692384.3.579. 2.593 1973 Unknown [id number] 2.16.840.1.769554.3.579. 2.593 1973 Unknown [id number] 2.16.840.1.001152.3.579. 2.593 1973 Unknown [id number] 2.16.840.1.286085.3.579. 2.593 1973 Unknown [id number] 2.16.840.1.765654.3.579. 2.593 1973 Unknown [id number] 2.16.840.1.856138.3.579. 2.593 1973 Unknown [id number] 2.16.840.1.265672.3.579. 2.593 1973 Unknown [id number] 2.16.840.1.919875.3.579. 2.1259 1973 Unknown [id number] 2.16.840.1.568496.3.579. 2.1259 1973 Unknown [id number] 2.16.840.1.880749.3.579. 2.1259 1959 Unknown [id number] Unknown [id number] 2.16.840.1.558790.3.579. 2.531 Unknown [id number] 2.16.840.1.872866.3.579. 2.531 Unknown [id number] 2.16.840.1.091013.3.579. 2.531 Social History Date Type Detail Facility Start: 05-09-2023 Sex Assigned At [facility] [employer] Other Start: 1975 Sex Assigned At Female F [facility] Start: 05-09-2023 Tobacco smoking status NHIS Ex-smoker [facility] History of tobacco use Current smoker [facility] History of tobacco use Cigarette Smoker [facility] Start: 05-09-2023 Tobacco use and exposure Smokeless tobacco non-user [facility] Start: 05-09-2023 Alcohol intake Current drinke r of alcohol (finding) [facility] Start: 05-09-2023 History of Social function [facility] Within the past 12 months we worried whether our food would run out before we got money to buy more. Never True [facility] Start: 05-09-2023 Alcohol Comment rare [facility] Start: 1975 Sex Assigned At Not on file [facility] Clinical Notes 05-06-2021 to 05-11-2023 Telephone Encounter - MIR Kennedy - 05/11/2023 1:10 PM ESTTelephone Encounter - MIR Kennedy - 05/11/2023 1:10 PM EST Note Date & Type Note Facility 05-11-2023 Miscellaneous Notes Formattin g of this note might be different from the original. Called patient to schedule her colonoscopy for [facility]. Unable to make contact with patient, left voicemail message for patient to call our office back. Called patient to schedule her colonoscopy with Dr. Naranjo for [facility]. Unable to make contact with patient, left voicemail message for patient to call our office back. Called patients emergency contact for unable to make contact with patient to schedule her colonoscopy with Dr. Naranjo for [facility]. Unable to make contact with patients emergency contact, left voicemail message for patients emergency contact to have patient call our office back. Called patients emergency contact for unable to make contact with patient to schedule her colonoscopy with Dr. Naranjo for [facility]. Unable to make contact with patients emergency contact, left voicemail message for patients emergency contact to have patient call our office back. Called patient and patients emergency contact to schedule her colonoscopy with Dr. Naranjo for [facility]. Unable to make contact with patient, left voicemail messages for patient to call our office back. I called the patient today 05/31/23 and left a message to call the office to schedule a colonoscopy at [facility] with Dr. Naranjo. I called Konstantin and left a message to call the office to schedule her procedure at the [facility]. documented in this encounter [facility] [employer] 05-11-2023 Telephone encount er Note Called patient to schedule her colonoscopy for [facility]. Unable to make contact with patient, left voicemail message for patient to call our office back. [facility] [employer] [facility] 05-11-2023 Telephone encount er Note Called patient to schedule her colonoscopy with Dr. Naranjo for [facility]. Unable to make contact with patient, left voicemail message for patient to call our office back. [employer] 05-11-2023 Telephone encount er Note Called patients emergency contact for unable to make contact with patient to schedule her colonoscopy with Dr. Naranjo for [facility]. Unable to make contact with patients emergency contact, left voicemail message for patients emergency contact to have patient call our office back. [email or web address] [employer] 05-11-2023 Telephone encount er Note Called patients emergency contact for unable to make contact with patient to schedule her colonoscopy with Dr. Naranjo for [facility]. Unable to make contact with patients emergency contact, left voicemail message for patients emergency contact to have patient call our office back. [employer] 05-11-2023 Telephone encount er Note Called patient and patients emergency contact to schedule her colonoscopy with Dr. Naranjo for [facility]. Unable to make contact with patient, left voicemail messages for patient to call our office back. [facility] [[email or web address] [employer] 05-11-2023 Telephone encount er Note I called the patient today 05/31/23 and left a message to call the office to schedule a colonoscopy at [facility] with Dr. Naranjo. [facility] [[email or web address]] [employer] 05-11-2023 Telephone encount er Note I called Konstantin and left a message to call the office to schedule her procedure at the [facility]. [facility] 04-19-2022 Evaluation note Encounter Date Diagnosis Assessment [...] well. Follow-up in 6 to 8 weeks. [facility] Other 10-06-2022 Evaluation note* Encounter Date Diagnosis [...] was a meniscus tear amenable to fixation. [facility] Other 10-04-2022 Evaluation note* Encounter Date Diagnosis [...] no improvement in 5 to 7 days. [facility] Other 12-06-2021 NotePROCEDURE: CTA CHEST WO W [...] 3-D images were rendered on a separate [employer] workstation. MIP imaging is also submitted. Images [...] series 4 are not included in the [id number]. AORTA AND VASCULATURE: There is normal caliber [...] Electronically authenticated by: YOLIS WAYNE Date: 2021-06-06 00:43[facility]11-10-2021 Evaluation note* Encounter Date Diagnosis Assessment Notes Treatment Notes Treatment Clinical Notes May, Viral upper respiratory illness (ICD-10 - J06.9) [facility] Other 11-05-2021 Evaluation note* Encounter Date Diagnosis [...] increase fluids and rest, Tylenol/Motrin as directed, Seneca and Flonase as directed, cool mist humidifier, throat lozenges. Advised patient that Seneca contains cough suppressant and antihistamine and to [...] Patient care instructions given in writting by [facility] Care At Home document [facility] [email or web address] Other Evaluation noteNo assessment information available [facility] Work Phone: Evaluation noteNo InformationNortLifecare [facility] [email or web address] Other History general Narrative - Reported* Type Description Date Medical History chronic depression Surgical History pilonidal cyst Surgical History abscess on neck [facility] [email or web address] Other InstructionsNot on filedocumented in this encounter [facility] Summary Purpose Family History No Family [...] DATE CREATED AUTHOR AUTHOR'S ORGANIZ ATION 04/11/2022 [facility] DATE CREATED AUTHOR AUTHOR'S ORGANIZ ATION 09/25/2023 [facility] EPIC REASON FOR VISIT (unrecogniz ed section and content) #20 ANTHONY MALIBU, H/A, SORE THROAT, COUGH, CONGESTION#21 MAROON MALIBU, COUGH, CONGESTION, H/A GETTING WORSELEFT KNEE PAINCLYDE UC LT KNEE PAIN SWELLING WXOrthopedic Office NotesF/U MRI [facility] Care Teams (unrecognized sec tion and content) Team Status: Inactive Member Role Status Dates PHYSICIAN NO FAMILY Primary Care Provider Active [employer] Attending Provider Active Team Status: Active Member Role Status Dates PHYSICIAN NO FAMILY Primary Care Provider Active Team Status: Inactive Member Role Status Dates PHYSICIAN NO FAMILY Primary Care Provider Active Marko Portillo II, MD Attending Provider Active [employer]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 [employer] provides no warranty or guarantee of the accuracy or completeness of information in this document.
[2023-10-09 09:42] VITALS: BP 126/80; PULSE 71; TEMP 36.4; O2SAT 98; BMI 49.0
[2023-10-24] VITALS (14 sets, daily range): BP systolic 115–141; BP diastolic 64–84; PULSE 57–75; TEMP 36.2–36.8; O2SAT 93–97; BMI 48.8; BMI 50.0
--- OUTSIDE RECORDS SUMMARY | 2023-10-24 05:59 | XMS_ITS | CCD ---
Author Organization [facility] Care Team Providers Care Import Customs Clearing Agent Name Role Phone SOPHIE, DR CHOWDHURY Admitting [...] Care Provider Unava DOT Ramey Attending Provider [phone] MD Marko Portillo II Attending Provider Marko Portillo II Unavailable [phone] NO FAMILY, PHYSICIAN Primary Care Unavailable [...] (1 source) Ciprofloxacin Drug Allergy 8 [facility] Rep[facility] (1 source) Vancomycin Drug Allergy 8 [facility] (7 sources) Ciprofloxacin Drug Allergy 3 [employer] Work Phone: (7 sources) Vancomycin Drug Allergy 3 [facility] Other Medications Current Medications Medication Drug Class(es) Dates Sig (Normalized) Sig (Original) [id number] 200 actuat albuterol 0.09 mg/actuat metered dose [...] oral tablet (1 source) alpha-Adrenergic Agonist, Uncompetitive R-lcyljd-F-aspartat e Receptor Antagonist, Sigma-1 Agonist Start: 05-11-2021 Capmist DM 60-15-400 MG 1 tablet at 4 hour intervals as needed Orally Four times a day for 10 day(s) May, Active dextromethorphan hydrobromide 1.5 mg/ml / pyrilamine maleate 1.5 mg/ml oral solution (2 sources) Uncompetitive A-wtainz-R-aspartat e Receptor Antagonist, Sigma-1 Agonist Start: 05-06-2021 take 20 mL by mouth every eight hours [place] DM 7.5-7.5 MG/5ML 20 mL Orally every [...] LT 4V*on 04-06-2022 XR knee LT 4V* [facility] Main [place] [address] [place] [address] XRay Report Signed Patient: Konstantin Bartlett MR#: [id number] 978 : 1975 Acct:[id number] Age/Sex: 46 / F ADM Date: 04/06/22 [place] [facility] [place]: Type: [facility] Attending Dr: Marko Portillo II, MD Copies to: Marko Portillo MD Ordering Provider: Marko Portillo MD Date of Service: 04/06/22 XR/XR knee LT 4V*: Acute pain of left knee ([id number]) XR/XR pelvis 1-2V: Acute pain of left [...] Nohemy Loza M.D.04/06/2022 3:16 PM Dictation Location: [place] [address] Transcribed By: CORINE 04/06/22 1516 Dictated By: Nohemy Loza MD 04/06/22 1513 Signed By: 04/06/22 1516 [facility] XR knee LT 4V*on 04-04-2022 XR knee LT 4V* [facility] Main [address] [address] XRay Report Signed Patient: Konstantin Bartlett MR#: [id number] 978 : 1975 Acct:[id number] Age/Sex: 46 / F ADM Date: 04/04/22 Loc: [facility] Room: Type: [facility] Attending Dr: Sis CHRIS Copies to: [...] Jasen Starkey M.D.04/04/2022 12:53 PM Dictation Location: [place] [address] Transcribed By: CORINE 04/04/22 1253 Dictated By: Jasen Starkey II, MD 04/04/22 1249 Signed By: 04/04/22 1253 [facility] XR knee LT 4V* [facility] [employer] Other XR knee LT 4V* [facility] Main [facility] [employer] Other XR knee LT 4V* [address] [place] [address] [employer] Other XR knee LT 4V* [place] [address] No rt [employer] Other XR knee LT 4V* XRay Report [employer] Other XR knee LT 4V* Signed [facility] Other XR knee LT 4V* Patient: Konstantin Bartlett MR#: [id number] [employer] Other XR knee LT 4V* 978 [facility] Other XR knee LT 4V* : 1975 Acct:[id number] [employer] Other XR knee LT 4V* Age/Sex: 46 / F ADM Date: 04/04/22 [employer] Other XR knee LT 4V* Loc: [facility] Room: Type: REG CLI [employer] Other XR knee LT 4V* Attending Dr: Sis CHRIS [employer] Other XR knee LT 4V* Copies to: DOT Mackenzie [employer] Other XR knee LT 4V* Ordering Provider: DOT Mackenzie [employer] Other XR knee LT 4V* Date of Service: 04/04/22 [employer] Other XR knee LT 4V* XR/XR knee LT 4V*: Acute pain of left knee [employer] Other XR knee LT 4V* XR knee LT 4V* 04/04/2022 12:28 PM [employer] Other XR knee LT 4V* SIGNS AND SYMPTOMS: Left knee pain [employer] Other XR knee LT 4V* PROTOCOL: Frontal, lateral, and oblique radiographs of the left knee [employer] Other XR knee LT 4V* COMPARISON: None Nort [employer] Other XR knee LT 4V* FINDINGS: [facility] Other XR knee LT 4V* There is mild narrowing of the weightbearing and patellofemoral joint spaces. There is [employer] Other XR knee LT 4V* enthesophyte formation at the poles of the patella. There is no joint effusion or soft tissue [employer] Other XR knee LT 4V* swelling. No fractur e or dislocation. [employer] Other XR knee LT 4V* XR/XR knee LT 4V* [employer] Other XR knee LT 4V* IMPRESSION: [employer] Other XR knee LT 4V* Mild tricompartmenta l degenerative changes are noted. [employer] Other XR knee LT 4V* No acute bony injury. [employer] Other XR knee LT 4V* Impression dictated by: Jasen Starkey M.D.04/04/2022 12:53 PM [employer] Other XR knee LT 4V* Dictation Location: [place] [address] [employer] Other XR knee LT 4V* Transcribed By: CORINE 04/04/22 1253 [employer] Other XR knee LT 4V* Dictated By: Jasen Starkey II, MD 04/04/22 1249 [employer] Other XR knee LT 4V* Signed By: [facility] Other XR knee LT 4V* 04/04/22 1253 [employer] Other COVID-19 Antigenon 01-14-202 2 COVID-19 Antigen [...] its performance Alfreda Disclaimer characteristic determined by [employer] and Alfreda Disclaimer validated at [facility]. This Alfreda Disclaimer test has not been [...] is terminated or revoked sooner. PERFORMED BY: [place] [address] PATHOLOGIST DYER ASSISTANT JUAN MANUEL MAYORGA M.D. Normal [facility] Comment on above: Performed By: #### C OVID-19 ALFREDA, SOFIAPOS #### [address] Alfreda Ag Positiveon 07-15-19 22 Alfreda Ag Positive Positive Critically abnormal Negative [facility] Comment on above: Result Comment: This is a duplicate Alfreda SARS Antigen (ABHISHEK) result to be used for statistical tracking purpose only. PERFORMED BY: [place] [address] PATHOLOGIST DYER ASSISTANT JUAN MANUEL MAYORGA M.D. Performed By: #### C OVID-19 ALFREDA, SOFIAPOS #### [facility] [address] [place] [address] CARDIAC JASEN ADMITon 021 CK [Catalytic activity/Vol] 114 U/L Normal 30-135 [facility] Comment on above: Performed By: #### B DARIO MCCOY #### [facility] [address] [place] [address] Dr. Amy Cantu CK.MB [Mass/Vol] 0.95 ng/mL Normal <=2.37 [facility] Comment on above: Performed By: #### Osei MCCOY CMADM #### [facility] [address] [place] [address] Dr. Amy Cantu HSTROP 6.1 pg/mL Normal 4.0-35.5 [facility] Comment on above: Result Comment: CUT- OFF POINTS HAVE BEEN ESTABLISHED BASED ON THE FOURTH UNIVERSAL DEFINITIONS OF MYOCARDIAL INFARCTION. THE UPPER REFERENCE LIMIT (URL) OF TROPONIN, DEFINED THE 99TH PERCENTILE OF cTnI DISTRIBUTION IN A REFERENCE POPULATION, HAS BEEN CONFIRMED THE DECISION THRESHOLD FOR DC DIAGNOSIS. Performed By: #### B NADINE, CMADM #### [facility] [address] [place] [address] Dr. Amy Cantu JUVE 43.0 ng/mL Normal <=61.5 [facility] Comment on above: Performed By: #### B NADINE, EDWINDM #### [facility] [address] [place] [address] Dr. Amy Cantu CBC AUTO DIFFon 06-05-2021 BASO # 0.1 103/ul Normal 0.0-0.1 [facility] Comment on above: Performed By: #### C BC #### [facility] [address] [place] [address] Dr. Amy Cantu Basophils/100 WBC (Bld) 0.9 % Normal 0.2-2.0 [facility] Comment on above: Performed By: #### C BC #### [facility] [address] [place] [address] Dr. Amy Cantu EO # 0.2 103/ul Normal 0.0-0.7 [facility] Comment on above: Performed By: #### C BC #### [facility] [address] [place] [address] Dr. Amy Cantu Eosinophils/100 WBC (Bld) 3.1 % Normal 0.9-7.0 [facility] Comment on above: Performed By: #### C BC #### [facility] [address] [place] [address] Dr. Amy Cantu Erythrocyte distribution width (RBC) [Ratio] 16.8 % Critically high 11.0-15.0 [facility] Comment on above: Performed By: #### C BC #### [facility] [address] [place] [address] Dr. Amy Cantu Hematocrit (Bld) [Volume fraction] 32.1 % Critically low 36.0-48.0 [facility] Comment on above: Performed By: #### C BC #### [facility] [address] [place] [address] Dr. Amy Cantu Hemoglobin (Bld) [Mass/Vol] 9.6 g/dL Critically low 12.0-16.0 [facility] Comment on above: Performed By: #### C BC #### [facility] [address] [place] [address] Dr. Amy Cantu IG # 0.03 10e3/ul Normal 0.00-0.03 [facility] Comment on above: Performed By: #### C BC #### [facility] [address] [place] [address] Dr. Amy Cantu IG % 0.5 % Normal 0.0-0.5 [facility] Comment on above: Performed By: #### C BC #### [facility] [address] [place] [address] Dr. Amy Cantu LYMPH # 1.8 103/ul Normal 1.2-3.8 [facility] Comment on above: Performed By: #### C BC #### [facility] [address] [place] [address] Dr. Amy Cantu Lymphocytes/100 WBC (Bld) 28.5 % Normal 20.5-60.0 [facility] Comment on above: Performed By: #### C BC #### [facility] [address] [place] [address] Dr. Amy Cantu MANUAL DIFF REQ NO Normal [facility] Comment on above: Performed By: #### C BC #### [facility] [address] [place] [address] Dr. Amy Cantu MCH (RBC) [Entitic mass] 23.3 pg Critically low 26.7-34.0 [facility] Comment on above: Performed By: #### C BC #### [facility] [address] [place] [address] Dr. Amy Cantu MCHC (RBC) [Mass/Vol] 29.9 g/dL Normal 29.9-35.2 [facility] Comment on above: Performed By: #### C BC #### [facility] [address] [place] [address] Dr. Amy Cantu MCV (RBC) [Entitic vol] 77.9 fL Critically low 81.0-99.0 [facility] Comment on above: Performed By: #### C BC #### [facility] [address] [place] [address] [address] Amy Cantu MONO # 0.7 103/ul Normal 0.3-0.8 [facility] Comment on above: Performed By: #### C BC #### [facility] [address] [place] [address] [address] Amy Cantu Monocytes/100 WBC (Bld) 11.3 % Normal 1.7-12.0 [facility] Comment on above: Performed By: #### C BC #### [facility] [address] [place] [address] [address] Amy Cantu NEUT # 3.6 103/ul Normal 1.4-6.5 [facility] Comment on above: Performed By: #### C BC #### [facility] [address] [place] [address] Dr. Amy Cantu Neutrophils/100 WBC (Bld) 55.7 % Normal 43.0-75.0 [facility] Comment on above: Performed By: #### C BC #### [facility] [address] [place] [address] [address] Amy Cantu Platelet mean volume (Bld) [Entitic vol] 9.5 fL Normal 9.5-13.5 [facility] Comment on above: Performed By: #### C BC #### [facility] [address] [place] [address] Dr. Amy Cantu PLT 396 103/ul Normal 150-450 [facility] Comment on above: Performed By: #### C BC #### [facility] [address] [place] [address] [address] Amy Cantu RBC 4.12 106/ul Critically low 4.20-5.40 [facility] Comment on above: Performed By: #### C BC #### [facility] [address] [place] [address] [address] Amy Cantu WBC 6.5 103/ul Normal 4.0-11.0 [facility] Comment on above: Performed By: #### C BC #### [facility] [address] [place] [address] Dr. Amy Cantu Covid-19 PCR (CVDTB)on SARS-CoV-2 (COVID-19) RNA MAYRA+probe Ql (Unsp spec) Not detected Normal NOT DETECTED [facility] Comment on above: Result Comment: This test is not yet approved or cleared by the [place] FDA. When there are no FDA-approved or cleared tests available, and other criteria are met, FDA can make tests available under an emergency access mechanism called an Emergency Use Authorization (EUA). The EUA for this test is supported by the Cemetery Warden of Health and Human Service's (HHS's) declaration [...] SARS-CoV-2. Performed By: #### C VDTB #### [facility] [address] [place] [address] Dr. Amy Cantu D-DIMERon 06-05-2021 D-DIMER 0.81 mg/L FEU Critically high 0.19-0.50 [facility] Comment on above: Performed By: #### L BCFS #### [facility] [address] [place] [address] Bassam Slater D-DIMER COMMENTS SEE BELOW Normal [facility] Comment on above: Result Comment: [...] and generalized hospitalization. Performed By: #### L [facility] #### [facility] [address] [place] [address] Basasm Slater PROF CHEM 8 (BAS METB)on Anion gap [Moles/Vol] 9.1 mmol/L Normal [facility] Comment on above: Performed By: #### B NADINE, EDWINDM #### [facility] [address] [place] [address] Dr. Amy Cantu Calcium [Mass/Vol] 9.0 mg/dL Normal 8.4-10.2 [facility] Comment on above: Performed By: #### B EDWIN MCCOYDM #### [facility] [address] [place] [address] Dr. Amy Cantu Chloride [Moles/Vol] 103 mmol/L Normal 98-107 [facility] Comment on above: Performed By: #### B EDWIN MCCOYDM #### [facility] [address] [place] [address] Dr. Amy Cantu CO2 [Moles/Vol] 26.7 mmol/L Normal 22.0-30.0 [facility] Comment on above: Performed By: #### B EDWIN MCCOYDM #### [facility] [address] [place] [address] Dr. Amy Cantu Creatinine [Mass/Vol] 0.99 mg/dL Normal 0.52-1.04 [facility] Comment on above: Performed By: #### B DARIO MCCOY #### [facility] [address] [place] [address] Dr. Amy Cantu EGFR-AF CHADIAN >60 Normal >=60 [facility] Comment on above: Performed By: #### B EDWIN MCCOYDM #### [facility] [address] [place] [address] Dr. Amy Cantu EGFR-NON AF CHADIAN =60 Normal >=60 [facility] Comment on above: Performed By: #### B DARIO MCCOY #### [facility] [address] [place] [address] Dr. Amy Cantu Glucose [Mass/Vol] 135 mg/dL Critically high 74-106 [facility] Comment on above: Performed By: #### B NADINE, CMADM #### [facility] [address] [place] [address] Dr. Amy Cantu Potassium [Moles/Vol] 3.8 mmol/L Normal 3.4-5.0 [facility] Comment on above: Performed By: #### B NADINE, CMADM #### [facility] [address] [place] [address] Dr. Amy Cantu Sodium [Moles/Vol] 135 mmol/L Critically low 137-145 [facility] Comment on above: Performed By: #### B NADINE, EDWINDM #### [facility] [address] [place] [address] Dr. Amy Cantu Urea nitrogen [Mass/Vol] 17.0 mg/dL Normal 7.0-17.0 [facility] Comment on above: Performed By: #### B NADINE, EDWINDM #### [facility] [address] [place] [address] Dr. Amy Cantu Urea nitrogen/Creatini ne [Mass ratio] 17.2 mg/mg Normal [facility] Comment on above: Performed By: #### B NADINE, EDWINDM #### [facility] [address] [place] [address] Dr. Amy Cantu Covid-19 PCR ([facility])on 05-02 SARS-CoV-2 (COVID-19) RNA MAYRA+probe Ql (Unsp spec) Not detected Normal NOT DETECTED [facility] Comment on above: Result Comment: This test is not yet approved or cleared by the [place] FDA. When there are no FDA-approved or cleared tests available, and other criteria are met, FDA can make tests available under an emergency access mechanism called an Emergency Use Authorization (EUA). The EUA for this test is supported by the Cemetery Warden of Health and Human Service's (HHS's) declaration [...] SARS-CoV-2. Performed By: #### C VDTB #### [facility] [address] [place], [place] [address] Dr. Amy Cantu US PELVIS TRANSVAGon 021 [...] by: ERON GARCIA Date: 2020-08-19 15:17 Normal [facility] FSHon 07-27-2020 FSH 4.6 mIU/mL Normal [facility] Comment on above: Result Comment: Adul t Female: Follicular phase 3.5 - 12.5 Ovulation phase 4.7 - 21.5 Luteal phase 1.7 - 7.7 Postmenopausal 25.8 - 134.8 Performed By: #### L BCFS #### [facility] [address] [place], [place] [address] Bassam Slater LUTEINIZING HORMONE (LH)on 0 07-27-2020 LH 7.8 mIU/mL Normal [facility] Comment on above: Result Comment: Adul t Female: Follicular phase 2.4 - 12.6 Ovulation phase 14.0 - 95.6 Luteal phase 1.0 - 11.4 Postmenopausal 7.7 - 58.5 Performed By: #### L [facility] #### [facility] [address] [place] [address] Bassam Slater PAP ACOG PANEL 2: 30 to 65on 07-27-2020 . . Normal [facility] Comment on above: Result Comment: Perf ormed at: WB Performed By: #### [id number] #### [facility] [address] [place] [address] Bassam Slater Age Gdln ACOG Testing 30-65 [facility] Comment on above: Performed By: #### [id number] #### [facility] [address] [place] [address] Bassam Slater DIAGNOSIS: Comment Normal [facility] Comment on above: Result Comment: NEGA TIVE FOR INTRAEPITHELIAL LESION OR MALIGNANCY. Performed at: WB Performed By: #### [id number] #### [facility] [address] [place] [address] Bassam Slater HPV Aptima Negative Normal Negative [facility] Comment on above: Result Comment: This nucleic acid amplification test detects fourteen high-risk HPV types (16,18,31,33,35,39,45,51,52,56,58,59,66,68) without differentiation. Performed at: =G Performed By: #### [id number] #### [facility] [address] [place] [address] Bassam Slater Methodology: Comment Normal [facility] Comment on above: Result Comment: This liquid based ThinPrep(R) pap test was screened with the use of an image guided system. Performed at: WB Performed By: #### [id number] #### [facility] [address] [place] [id number] Bassam Slater Note: Comment Normal [facility] Comment on above: Result Comment: The Pap smear is a screening test designed to aid in the detection of premalignant and malignant conditions of the uterine cervix. It is not a diagnostic procedure and should not be used as the sole means of detecting cervical cancer. Both false-positive and false-negative reports do occur. . Performed at: WB Performed By: #### [id number] #### [facility] [address] [place], [place] [address] Bassam Slater Performed by: Comment Normal [facility] Comment on above: Result Comment: Radha Cesar, Local Government Legislator (ASCP) Performed at: WB Performed By: #### [id number] #### [facility] [address] [place] [address] Bassammalina Slater Specimen adequacy: Comment Normal [facility] Comment on above: Result Comment: Sati sfactory for evaluation. Endocervical and/or squamous metaplastic cells (endocervical component) are present. Performed at: WB Performed By: #### [id number] #### [facility] [address] [place], [place] [address] Bassammalina Slater CBC AUTO DIFFon 07-26-2020 BASO # 0.1 103/ul Normal 0.0-0.1 [facility] Comment on above: Performed By: #### L BCFSH #### [facility] [address] [place] [address] Bassam Nohemy Basophils/100 WBC (Bld) 1.0 % Normal 0.2-2.0 [facility] Comment on above: Performed By: #### L BCFSH #### [facility] [address] [place], [place] [address] Bassam Nohemy EO # 0.2 103/ul Normal 0.0-0.7 [facility] Comment on above: Performed By: #### L BCFSH #### [facility] [address] [place], [place] [address] Bassam Nohemy Eosinophils/100 WBC (Bld) 2.6 % Normal 0.9-7.0 [facility] Comment on above: Performed By: #### L BCFSH #### [facility] [address] [place], [place] [address] Bassammalina Slater Erythrocyte distribution width (RBC) [Ratio] 16.3 % Critically high 11.0-15.0 [facility] Comment on above: Performed By: #### L BCFSH #### [facility] [address] [place] [address] Bassam Slater Hematocrit (Bld) [Volume fraction] 38.5 % Normal 36.0-48.0 [facility] Comment on above: Performed By: #### L BCFSH #### [facility] [address] [place] [address] Bassam Slater Hemoglobin (Bld) [Mass/Vol] 12.1 g/dL Normal 12.0-16.0 [facility] Comment on above: Performed By: #### L BCFSH #### [facility] [address] [place] [address] Bassammalina Slater IG # 0.01 10e3/ul Normal 0.00-0.03 [facility] Comment on above: Performed By: #### L BCFSH #### [facility] [address] [place] [address] Bassammalina Slater IG % 0.1 % Normal 0.0-0.5 [facility] Comment on above: Performed By: #### L BCFSH #### [facility] [address] [place] [address] Bassam Slater LYMPH # 2.6 103/ul Normal 1.2-3.8 [facility] Comment on above: Performed By: #### L BCFSH #### [facility] [address] [place] [address] Bassam Nohemy Lymphocytes/100 WBC (Bld) 31.8 % Normal 20.5-60.0 [facility] Comment on above: Performed By: #### L BCFSH #### [facility] [address] [place] [address] Bassam Leesen MANUAL DIFF REQ NO Normal [facility] Comment on above: Performed By: #### L BCFSH #### [facility] [address] [place] [address] Bassam Nohemy MCH (RBC) [Entitic mass] 25.4 pg Critically low 26.7-34.0 [facility] Comment on above: Performed By: #### L BCFS #### [facility] [address] [place], [place] [address] Bassam Leesen MCHC (RBC) [Mass/Vol] 31.4 g/dL Normal 29.9-35.2 [facility] Comment on above: Performed By: #### L BCFSH #### [facility] [address] [place], [place] [address] Bassam Slater MCV (RBC) [Entitic vol] 80.9 fL Critically low 81.0-99.0 [facility] Comment on above: Performed By: #### L BCFSH #### [facility] [address] [place] [address] Bassam Slater MONO # 0.5 103/ul Normal 0.3-0.8 [facility] Comment on above: Performed By: #### L BCFS #### [facility] [address] [place] [address] Bassam Slater Monocytes/100 WBC (Bld) 5.8 % Normal 1.7-12.0 [facility] Comment on above: Performed By: #### L BCFS #### [facility] [address] [place] [address] Bassammalina Slater NEUT # 4.7 103/ul Normal 1.4-6.5 [facility] Comment on above: Performed By: #### L BCFSH #### [facility] [address] [place] [address] Bassam Slater Neutrophils/100 WBC (Bld) 58.7 % Normal 43.0-75.0 [facility] Comment on above: Performed By: #### L BCFSH #### [facility] [address] [place], [place] [id number] Bassammalina Slater Platelet mean volume (Bld) [Entitic vol] 9.5 fL Normal 9.5-13.5 [facility] Comment on above: Performed By: #### L BCFSH #### [facility] [address] [place] [address] Bassammalina Leesen PLT 422 103/ul Normal 150-450 [facility] Comment on above: Performed By: #### [facility] #### [facility] [address] [place] [id number] Bassam Slater RBC 4.76 106/ul Normal 4.20-5.40 [facility] Comment on above: Performed By: #### L BCFS #### [facility] [address] [place], [place] [address] Bassam Slater WBC 8.1 103/ul Normal 4.0-11.0 [facility] Comment on above: Performed By: #### [facility] #### [facility] [address] [place], [place] [address] Bassam Slater TSHon 07-26-2020 TSH 4.081 uIU/mL Normal 0.470-4.680 [facility] Comment on above: Performed By: #### T SH #### [facility] [address] [place] [address] Bassam Slater TSH RANGE SEE BELOW Normal [facility] Comment on above: Result Comment: <0.3 4 UIU/ml HYPERTHYROID 0.34-5.60 UIU/ml EUTHYROID >5.60 UIU/ml HYPOTHYROID Performed By: #### T SH #### [facility] [address] [place], [place] [id number] Bassam Slater Vital Signs Date Time Vital Sign Value Performing Clinician Facility 04-06-2022 12:00-0400 Body height 162.56 cm Marko Portillo II Other [facility] Other 04-06-2022 12:00-0400 Body mass index (BMI) [Ratio] 46.86 kg/m2 Marko Portillo II Other [facility] Other 04-06-2022 12:00-0400 Body weight 123.83 kg Marko Portillo II Other [facility] Other 04-04-2022 13:05-0400 Body height 162.56 cm Sis Santa Other [facility] Other 04-04-2022 13:05-0400 Body temperature 98 [degF] Sis Santa Other [facility] Other 04-04-2022 13:05-0400 Diastolic blood pressure 81 mm[Hg] Sis Santa Other [facility] Other 04-04-2022 13:05-0400 Respiratory rate 18 /min Sis Santa Other [facility] Other 04-04-2022 13:05-0400 SaO2% (BldA) [Mass fraction] 100 % Sis Santa Other [facility] Other 04-04-2022 13:05-0400 Systolic blood pressure 127 mm[Hg] Sis Santa Other [facility] Other 05-11-2021 15:00-0500 Body height 162.56 cm Sis Santa Other [facility] Other 05-11-2021 15:00-0500 Body mass index (BMI) [Ratio] 46.34 kg/m2 Sis Santa Other [facility] Other 05-11-2021 15:00-0500 Body temperature 98.4 [degF] Sis Santa Other [facility] Other 05-11-2021 15:00-0500 Body weight 122.47 kg Sis Santa Other [facility] Other 05-11-2021 15:00-0500 Respiratory rate 18 /min Sis Santa Other [facility] Other 05-11-2021 15:00-0500 SaO2% (BldA) [Mass fraction] 96 % Sis Pratt Other [facility] Other 05-06-2021 14:45-0400 Body height 162.56 cm Nicki Ginty Other [facility] Other 05-06-2021 14:45-0400 Body mass index (BMI) [Ratio] 46.34 kg/m2 Nicki Ginty Other [facility] Other 05-06-2021 14:45-0400 Body temperature 98.2 [degF] Nicki Ginty Other [facility] Other 05-06-2021 14:45-0400 Body weight 122.47 kg Nicki Ginty Other [facility] Other 05-06-2021 14:45-0400 SaO2% (BldA) [Mass fraction] 99 % Nicki Ginty Other [facility] Other Encounters Encounter Date Encounter Type Care Provider Facility Start: 09-24-2023 End: 09-24-2023 ambulatory LUCIANA BARRIOS Not Available Start: 07-26-2023 End: 07-26-2023 ambulatory IRENE REID Not Available Start: 05-29-2023 End: 05-29-2023 ambulatory GRIFFIN RAMIREZ Not Available Start: 05-11-2023 Telephone encounter [facility] Start: 04-19-2022 End: 04-19-2022 ambulatory Marko Portillo II Other [facility] Other Start: 04-19-2022 Office outpatient vi sit 25 minutes Marko [place] II [facility] Start: 04-13-2022 End: 04-13-2022 ambulatory PHYSICIAN NO [facility] Work Phone: Start: 04-13-2022 End: 04-13-2022 Patient encounter procedure PHYSICIAN NO [facility] [address] Start: 04-07-2022 End: 04-07-2022 ambulatory Marko Portillo II Other [facility] Other Start: 04-07-2022 Telephone encounter Marko Portillo II [facility] Start: 04-06-2022 Office outpatient ne w 45 minutes Marko [place] II [facility] Start: 04-06-2022 End: 04-06-2022 ambulatory PHYSICIAN NO [facility] Facility:[facility] Start: 04-06-2022 End: 04-06-2022 ambulatory PHYSICIAN NO [facility] Work Phone: Start: 04-06-2022 End: 04-06-2022 Patient encounter procedure PHYSICIAN NO [facility] Start: 04-04-2022 Office outpatient vi sit 15 minutes Sis Pratt [facility] Start: 04-04-2022 End: 04-04-2022 ambulatory PHYSICIAN NO [facility] Other Start: 04-04-2022 End: 04-04-2022 Patient encounter procedure PHYSICIAN NO [facility] Start: 07-15-2021 End: 07-15-2021 ambulatory PHYSICIAN NO [facility] Facility:[facility] Start: 06-05-2021 End: 06-06-[address] KENNY HUERTAS Facility:[facility] Start: 05-12-2021 End: 05-12-[address] DOCTOR CEBALLOS Facility:[facility] Start: 05-11-2021 End: 05-11-2021 ambulatory Sis Pratt Other [facility] Other Start: 05-11-2021 Office outpatient vi sit 15 minutes Sis Pratt [facility] Start: 05-06-2021 End: 05-06-2021 ambulatory Nicki [place] Other [place] [employer] Other Start: 05-06-2021 Office outpatient vi sit 15 minutes Nicki Keetrubelinda [facility] Start: 10-15-[address] LUCIANA BARRIOS Facility :[facility] Start: 10-14-2020 Encounter for other preprocedural examination DR LUCIANA BARRIOS [facility] Start: 10-12-[address] LUCIANA BARRIOS [...] Author Start: 05-09-2024 Tobacco Screening Tobacco Screening [facility] Start: 03-02-2023 Influenza vaccination [facility] Start: 1994 Screening for malign ant neoplasm of cervix Pap Smear [facility] Start: 1992 DTaP,Tdap and Td Vaccines (1 - Tdap) DTaP,Tdap and Td Vaccines ( - Tdap) [facility] Start: 11-26-1991 Adult BMI Screening Adult BMI Screen ing [facility] Start: 1985 Depression Screening Depression Scre ening [facility] Payers Date Payer Category Payer Private Health Insurance [facility] [employer] [id number] 2022-Present [phone] [address] [address] [place] [address] [id number] 2022 Unknown [id number] 2021 Self-pay [id number] 1973 Unknown [id number] [id number]. 2.593 1973 Unknown [id number] 2.16.840.1.894252.3.579. 2.593 1973 Unknown [id number] 2.16.840.1.761904.3.579. 2.593 1973 Unknown [id number] 2.16.840.1.912113.3.579. 2.593 1973 Unknown [id number] 2.16.840.1.423704.3.579. 2.593 1973 Unknown [id number] 2.16.840.1.285994.3.579. 2.593 1973 Unknown [id number] 2.16.840.1.308586.3.579. 2.593 1973 Unknown [id number] 2.16.840.1.905681.3.579. 2.593 1973 Unknown [id number] 2.16.840.1.106279.3.579. 2.1259 1973 Unknown [id number] 2.16.840.1.431901.3.579. 2.1259 1973 Unknown [id number] 2.16.840.1.946986.3.579. 2.1259 1959 Unknown [id number] Unknown [id number] 2.16.840.1.794489.3.579. 2.531 Unknown [id number] 2.16.840.1.870357.3.579. 2.531 Unknown [id number] 2.16.840.1.265963.3.579. 2.531 Social History Date Type Detail Facility Start: 05-09-2023 Sex Assigned At N [employer] Other Start: 1975 Sex Assigned At Female F [facility] Start: 05-09-2023 Tobacco smoking status NHIS Ex-smoker [facility] History of tobacco use Current smoker [facility] History of tobacco use Cigarette Smoker [facility] Start: 05-09-2023 Tobacco use and exposure Smokeless tobacco non-user [facility] Start: 05-09-2023 Alcohol intake Current drinke r of alcohol (finding) [facility] Start: 05-09-2023 History of Social function [facility] Within the past 12 months we worried whether our food would run out before we got money to buy more. Never True [facility] Start: 05-09-2023 Alcohol Comment rare [facility] Start: 1975 Sex Assigned At Not on file P [facility] Clinical Notes 05-06-2021 to 05-11-2023 Telephone Encounter - MIR Kennedy - 05/11/2023 1:10 PM ESTTelephone Encounter - MIR Kennedy - 05/11/2023 1:10 PM EST Note Date & Type Note Facility 05-11-2023 Miscellaneous Notes Formattin g of this note might be different from the original. Called patient to schedule her colonoscopy for [facility]. Unable to make contact with patient, left voicemail message for patient to call our office back. Called patient to schedule her colonoscopy with Dr. Naranjo for [facility]. Unable to make contact with patient, left voicemail message for patient to call our office back. Called patients emergency contact for unable to make contact with patient to schedule her colonoscopy with Dr. Naranjo for [facility]. Unable to make contact with patients emergency contact, left voicemail message for patients emergency contact to have patient call our office back. Called patients emergency contact for unable to make contact with patient to schedule her colonoscopy with Dr. Naranjo for [facility]. Unable to make contact with patients emergency contact, left voicemail message for patients emergency contact to have patient call our office back. Called patient and patients emergency contact to schedule her colonoscopy with Dr. Naranjo for [facility]. Unable to make contact with patient, left voicemail messages for patient to call our office back. I called the patient today 05/31/23 and left a message to call the office to schedule a colonoscopy at [facility] with Dr. Naranjo. I called Konstantin and left a message to call the office to schedule her procedure at the [facility]. documented in this encounter [facility] [employer] 05-11-2023 Telephone encount er Note Called patient to schedule her colonoscopy for [facility]. Unable to make contact with patient, left voicemail message for patient to call our office back. [facility] 05-11-2023 Telephone encount er Note Called patient to schedule her colonoscopy with Dr. Naranjo for [facility]. Unable to make contact with patient, left voicemail message for patient to call our office back. [facility] 05-11-2023 Telephone encount er Note Called patients emergency contact for unable to make contact with patient to schedule her colonoscopy with Dr. Naranjo for [facility]. Unable to make contact with patients emergency contact, left voicemail message for patients emergency contact to have patient call our office back. [facility] 05-11-2023 Telephone encount er Note Called patients emergency contact for unable to make contact with patient to schedule her colonoscopy with Dr. Naranjo for [facility]. Unable to make contact with patients emergency contact, left voicemail message for patients emergency contact to have patient call our office back. [facility] 05-11-2023 Telephone encount er Note Called patient and patients emergency contact to schedule her colonoscopy with Dr. Naranjo for [facility]. Unable to make contact with patient, left voicemail messages for patient to call our office back. [facility] 05-11-2023 Telephone encount er Note I called the patient today 05/31/23 and left a message to call the office to schedule a colonoscopy at [facility] with Dr. Naranjo. [facility] 05-11-2023 Telephone encount er Note I called Konstantin and left a message to call the office to schedule her procedure at the [facility]. [facility] 04-19-2022 Evaluation note Encounter Date Diagnosis Assessment [...] well. Follow-up in 6 to 8 weeks. [facility] Other 10-06-2022 Evaluation note* Encounter Date Diagnosis [...] was a meniscus tear amenable to fixation. [facility] Other 10-04-2022 Evaluation note* Encounter Date Diagnosis [...] no improvement in 5 to 7 days. [facility] Other 12-06-2021 NotePROCEDURE: CTA CHEST WO W [...] 3-D images were rendered on a separate [employer] workstation. MIP imaging is also submitted. Images [...] series 4 are not included in the [id number]. AORTA AND VASCULATURE: There is normal caliber [...] Electronically authenticated by: YOLIS WAYNE Date: 2021-06-06 00:43[facility]11-10-2021 Evaluation note* Encounter Date Diagnosis Assessment Notes Treatment Notes Treatment Clinical Notes May, Viral upper respiratory illness (ICD-10 - J06.9) [facility] Other 11-05-2021 Evaluation note* Encounter Date Diagnosis [...] increase fluids and rest, Tylenol/Motrin as directed, [place] and Flonase as directed, cool mist humidifier, throat lozenges. Advised patient that [place] contains cough suppressant and antihistamine and to [...] Patient care instructions given in writting by [facility] Care At Home document [facility] [employer] Other Evaluation noteNo assessment information available [facility] Work Phone: Evaluation noteNo InformationNortGuth[facility] [employer] Other History general Narrative - Reported* Type Description Date Medical History chronic depression Surgical History pilonidal cyst Surgical History abscess on neck Parse [facility] [employer] Other InstructionsNot on filedocumented in this encounter [facility] Summary Purpose Family History No Family [...] DATE CREATED AUTHOR AUTHOR'S ORGANIZ ATION 04/11/2022 [facility] DATE CREATED AUTHOR AUTHOR'S ORGANIZ ATION 09/25/2023 [facility] EPIC REASON FOR VISIT (unrecogniz ed section and content) #20 ANTHONY MALIBU, H/A, SORE THROAT, COUGH, CONGESTION#21 MAROON MALIBU, COUGH, CONGESTION, H/A GETTING WORSELEFT KNEE PAINCLYDE UC LT KNEE PAIN SWELLING WXOrthopedic Office NotesF/U MRI [facility] Care Teams (unrecognized sec tion and content) Team Status: Inactive Member Role Status Dates PHYSICIAN NO FAMILY Primary Care Provider Active [employer] [place] Attending Provider Active Team Status: Active Member Role Status Dates PHYSICIAN NO FAMILY Primary Care Provider Active Team Status: Inactive Member Role Status Dates PHYSICIAN NO FAMILY Primary Care Provider Active Marko Portillo II, MD Attending Provider Active [employer] Cle[employer] Relationship Specialty Start Date End Date No Pcp, [place] [address] PCP - General Family Medicine 05/09/23 Goals [...] BE BASED ON THE PRIMARY CLINICAL RECORDS. [employer] provides no warranty or guarantee of the accuracy or completeness of information in this document.
[2023-10-24 06:09] LABS: Basophils Absolute Auto 0.1 10^3/uL (0.0-0.1); Basophils Percent Auto 0.9 % (0.2-2.0); Eosinophils Absolute Auto 0.2 10^3/uL (0.0-0.7); Hematocrit 36.6 % (36.0-48.0); Hemoglobin 11.5 g/dL (12.0-16.0); Immature Granulocytes Abs Auto 0.01 10^3/uL (0.00-0.03); Immature Granulocytes Pct Auto 0.2 % (0.0-0.5); Lymphocytes Absolute Auto 2.2 10^3/uL (1.2-3.8); Mean Corpuscular HGB Conc 31.4 g/dL (29.9-35.2); Mean Corpuscular Hemoglobin 26.6 pg (26.7-34.0); Mean Corpuscular Volume 84.5 fL (81.0-99.0); Mean Platelet Volume 9.5 fL (9.5-13.5); Monocytes Absolute Auto 0.5 10^3/uL (0.3-0.8); Monocytes Percent Auto 7.8 % (1.7-12.0); Neutrophils Absolute Auto 3.6 10^3/uL (1.4-6.5); Neutrophils Percent Auto 55.1 % (43.0-75.0); Platelet Count 344 10^3/uL (150-450); Red Blood Count 4.33 10^6/uL (4.20-5.40); Red Cell Distribution Width 15.1 % (11.0-15.0); White Blood Count 6.6 10^3/uL (4.0-11.0)
[2023-10-24] MEDS: LACTATED RINGER'S SOLUTION 1,000 ML 50 ML IV (06:49)
[2023-10-24 06:50] LABS: HCG Quantitative <1 mIU/mL
[2023-10-24] MEDS: CEFAZOLIN SODIUM/DEXTROSE,ISO 2 GM/50 ML PIGGYBACK IV ×3 (07:27→19:48)
--- NOTE | 2023-10-24 10:36 | PM.ONB ---
Brief Operative Note Date of procedure: 10/24/23 Pre-op diagnosis general: menorrhagia, pelvic pain, dysmenorrhea Post-op diagnosis: same as pre-op Procedure: NAME OF PROCEDURE: ? Robotic assisted laparoscopic hysterectomy with cystoscopy, bilateral salpingectomy PROCEDURE:? The patient was taken back to the operating room, where she was prepped and draped in the normal sterile fashion after being placed in the dorsal lithotomy position.? Patient?s anesthesia was found to be adequate.? Surgical timeout was performed using two patient identifiers.? SCDs were on and in place.? Two grams of Ancef were given prior to the surgery.? Sterile Flynn catheter was inserted.? Standard size VCare was secured to the uterine cervix and the surgeon changed gloves.? Attention then was turned to the patient's abdomen, where a supraumbilical incision was then made.? Two S retractors were used to identify the patient?s fascia.? The fascia was then tented up using Emmanuel clamps and the patient?s fascia was incised sharply.? Patient?s abdomen was identified and entered bluntly.? The patient had the trocar placed and a pneumoperitoneum was obtained.? Approximately 4 liters of CO2 gas was used.? The camera was then placed through the trocar.? At this time, two robot trocars were placed in the patient?s left and right side, two hand widths from the midline, and this was placed under direct visualization.? The patient?s tube on the right side was tented up and the vessel sealer was then used to come across the mesosalpinx, and this was carried down to the uterine ovarian ligament.? The vessel sealer was carried down serially to the broad ligament, to the area of the bladder flap, which was then created anteriorly, and the uterine arteries were skeletonized and sealed using the vessel sealer.? The colpotomy was made using the monopolar cautery on cut, and this was carried circumferentially, posteriorly to anteriorly, until the uterus was amputated.? The specimen was then removed intact through the vagina, without difficulty.? The vagina was then closed using two running V-Loc in a non-lock fashion.? The robot was undocked.? The abdomen was desufflated.? The skin defects were closed using 4-0 Vicryl.? Please note, the fascia was closed using 0 Vicryl.? Sponge, lap and needle counts were correct x2.? Patient was taken to recovery room in stable condition.? The patient was awakened by Anesthesia first.? Patient tolerated procedure well.??Please note left ovarian cystectomy was performed using the vessel sealer Anesthesia: MAN Surgeon: Vikash Thapa Bioinformatics Assistant: Natalie Snow Estimated blood loss (mL): 100 Pathology: none sent (uterus, tubes and cervix) Condition: stable Disposition: PACU Urinary Catheter Management Urinary Catheter Management Urethral: Cath placed during this visit: no
[2023-10-24] MEDS: LACTATED RINGER'S SOLUTION 1,000 ML 125 ML IV ×2 (11:35→19:48)
[2023-10-24] MEDS: DOCUSATE SODIUM 100 MG CAPSULE PO (15:38)
[2023-10-24] MEDS: IBUPROFEN 400 MG TABLET 800 MG PO (15:38)
[2023-10-24] MEDS: METRONIDAZOLE/SODIUM CHLORIDE 500 MG/100 ML PREMIX 100 MG IV ×2 (16:05→23:32)
[2023-10-24] MEDS: OXYCODONE HCL/ACETAMINOPHEN 5MG/325MG 1 TAB PO (20:48)
[2023-10-25 04:00] VITALS: BP 109/72; PULSE 70; TEMP 36.6; O2SAT 95
[2023-10-25 04:51] LABS: Basophils Percent Auto 0.1 % (0.2-2.0); Hematocrit 33.8 % (36.0-48.0); Hemoglobin 10.4 g/dL (12.0-16.0); Immature Granulocytes Abs Auto 0.04 10^3/uL (0.00-0.03); Immature Granulocytes Pct Auto 0.3 % (0.0-0.5); Lymphocytes Absolute Auto 1.4 10^3/uL (1.2-3.8); Lymphocytes Percent Auto 10.2 % (20.5-60.0); Mean Corpuscular HGB Conc 30.8 g/dL (29.9-35.2); Mean Corpuscular Hemoglobin 26.7 pg (26.7-34.0); Mean Corpuscular Volume 86.7 fL (81.0-99.0); Mean Platelet Volume 9.8 fL (9.5-13.5); Monocytes Absolute Auto 0.9 10^3/uL (0.3-0.8); Monocytes Percent Auto 6.5 % (1.7-12.0); Neutrophils Absolute Auto 11.3 10^3/uL (1.4-6.5); Neutrophils Percent Auto 82.9 % (43.0-75.0); Platelet Count 299 10^3/uL (150-450); Red Cell Distribution Width 15.3 % (11.0-15.0); White Blood Count 13.6 10^3/uL (4.0-11.0)
[2023-10-25] MEDS: LACTATED RINGER'S SOLUTION 1,000 ML 125 ML IV (06:44)
[2023-10-25] MEDS: ENOXAPARIN SODIUM 40 MG/0.4 ML SYRINGE SUBQ (06:44)
--- NOTE | 2023-10-25 07:36 | P.GYNPN_ITS ---
APPRAISER AUDITOR - PN: Subj Post-Op Interval history: pt denies n.v.d.f.c pt denies cp sob ct ambulating and tolerating diet well, pain controlled, denies bm Subjective: patient has no complaints, pain is well controlled and patient is tolerating oral intake Exam Constitutional Vital Signs, click to edit/add: Last Vital Signs Temp 97.8 F 10/25/23 04:00 Pulse 70 10/25/23 04:00 Resp 18 10/25/23 04:00 BP 109/72 10/25/23 04:00 Pulse Ox 95 10/25/23 04:00 O2 Del Method Room Air 10/25/23 04:00 Documenting provider has reviewed patient's vital signs: yes Common normals: no apparent distress Respiratory Common normals: clear to auscultation bilaterally Cardio Common normals: regular rate and regular rhythm GI Common normals: Normal to inspection, nondistended, normoactive bowel sounds present Extremity Common normals: no clubbing, cyanosis or edema and no calf tenderness Results Labs Labs: Short CBC 10/25/23 Range/Units 04:03 WBC 13.6 H (4.0-11.0) 10^3/uL Hgb 10.4 L (12.0-16.0) g/dL Hct 33.8 L (36.0-48.0) % Plt Count 299 (150-450) 10^3/uL APPRAISER AUDITOR - A/P Postoperative Procedures: Procedures Operation Date: 10/24/23 07:30 Actual Procedure Side Surgeon p Robot assist laparoscopic hysterectomy, cysto, bilateral salpingectomy Not Applicable Vikash Thapa DO Postoperative day: 1 Postoperative status APPRAISER AUDITOR: doing well Post-operative plan APPRAISER AUDITOR: routine post-op care, ambulate, advance diet and discharge (precautions given, rx on chart, fu 1wk) Fall Risk Details Lafleur fall scale risk level: Moderate Fall Risk Current medications: Current Medications Al Hydroxide/Mg Hydroxide (Magnesium Hydroxide 2,400 Mg/10 Ml Oral.Susp) 2,400 mg PO ONCE ONE Stop: 10/25/23 09:01 Docusate Sodium (Docusate Sodium 100 Mg Capsule) 100 mg PO BID PRN PRN Reason: Constipation Last Admin: 10/24/23 15:38 Dose: 100 mg Enoxaparin Sodium (Enoxaparin Sodium 40 Mg/0.4 Ml Syringe) 40 mg SUBQ Q24H [facility] Last Admin: 10/25/23 06:44 Dose: 40 mg Lactated Ringer's (Lactated Ringers) 1,000 mls @ 125 mls/hr IV .Q8H [facility] Last Admin: 10/25/23 06:44 Dose: 125 mls/hr Promethazine HCl 25 mg/ Sodium (Chloride) 51 mls @ 204 mls/hr IV Q6H PRN PRN Reason: Nausea And Vomiting Metronidazole (Flagyl 500 Mg/100 Ml Premix) 500 mg in 100 mls @ 100 mls/hr IV Q8H [facility] Last Infusion: 10/25/23 00:42 Dose: Infused Ibuprofen (Ibuprofen 400 Mg Tablet) 800 mg PO Q6H PRN PRN Reason: Pain Last Admin: 10/24/23 15:38 Dose: 800 mg Ketorolac Tromethamine (Ketorolac Tromethamine 30 Mg/Ml Vial) 30 mg IVP Q6H PRN PRN Reason: Pain Ondansetron HCl (Ondansetron Pf 4 Mg/2 Ml Vial) 4 mg IV Q6H PRN PRN Reason: Nausea Oxycodone/Acetaminophen (Oxycodone Hcl/Acetaminophen 5mg/325mg) 1 tab PO Q6H PRN PRN Reason: Pain Last Admin: 10/24/23 20:48 Dose: 1 tab Oxycodone/Acetaminophen (Oxycodone Hcl/Acetaminophen 5mg/325mg) 2 tab PO Q6H PRN PRN Reason: Pain Simethicone (Simethicone 80 Mg Tab.Chew) 80 mg PO PCHS PRN PRN Reason: Abdominal Distention Temazepam (Temazepam 15 Mg Capsule) 30 mg PO QHS PRN PRN Reason: Sleep Time Spent With Patient Time: Total time spent is greater than 50% in coordination of care (as documented) at patient's floor/unit and/or counseling patient: Time with patient: less than 15 minutes Urinary Catheter Management Urinary Catheter Management Urethral: Cath placed during this visit: no
[2023-10-25 08:00] VITALS: BP 134/76; PULSE 62; TEMP 36.8; O2SAT 97
[2023-10-25] MEDS: MAGNESIUM HYDROXIDE 2,400 MG/10 ML ORAL.SUSP 2400 MG PO (08:08)
[2023-10-25] MEDS: METRONIDAZOLE/SODIUM CHLORIDE 500 MG/100 ML PREMIX 100 MG IV (08:08)
[2023-10-25] MEDS: IBUPROFEN 400 MG TABLET 800 MG PO (10:48)
[2023-10-25] MEDS: OXYCODONE HCL/ACETAMINOPHEN 5MG/325MG 1 TAB PO (10:48)
== END 2023-10-25 11:21 | disposition home or self-care (01) ==
LOC: SURGOUT 10:46 → MS 11:46
PROVIDERS: Visit Provider Obstetrics & Gynecology
PROC: (CPT 840; principal; 2023-10-24 07:30)
DX: N94.10 Unspecified dyspareunia (principal); N92.0 Excessive and frequent menstruation with regular cycle; R10.2 Pelvic and perineal pain; N94.6 Dysmenorrhea, unspecified; Z87.891 Personal history of nicotine dependence; Z90.49 Acquired absence of other specified parts of digestive tract; N80.03 Adenomyosis of the uterus; N83.8 Other noninflammatory disorders of ovary, fallopian tube and broad ligament
CPT/HCPCS: 58571; 36415; 84702; 85025; 88307; 94667; 96365; 96366; 96372; J1094; J1170; J2704

== ENCOUNTER 2024-07-29 20:09 | Emergency (ER) | payer OTHER, SELFPAY ==
[2024-07-29 20:13] VITALS: BP 130/85; PULSE 83; TEMP 37.1; O2SAT 98; BMI 48.1
--- OUTSIDE RECORDS SUMMARY | 2024-07-29 20:14 | XMS_ITS | CCD ---
Author Organization 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 Name Role Phone SOPHIE, DR CHOWDHURY [...] II Attending Provider Marko Portillo II Unavailable [phone] No Pcp, No Pcp Primary Care Provider Unavailabl e NO FAMILY, PHYSICIAN Primary Care Provider Unava ilable Luciana Thapa Attending Provider NO FAMILY, PHYSICIAN Primary Care Unavailable Luciana Thapa Attending Unavailable Luciana Thapa Admitting Unavailable IRENE REID Attending Unavailable LUCIANA THAPA Attending Unavailable GRIFFIN RAMIREZ Attending Unavailable IRENE REID Attending Unavailable IRENE REID Attending Unavailable Allergies Allergy Classification Reported Allergen(s) Allergy Type Date of Onset Reaction(s) Facility (2 sources) Ciprofloxacin Drug Allergy 8 hives and itching [facility] Repository (2 sources) Vancomycin Drug Allergy 8 hives and itching [facility] Repository (7 sources) Ciprofloxacin Drug Allergy 3 [employer] Work Phone: (7 sources) Vancomycin Drug Allergy 3 [place] Other (1 source) Ciprofloxacin Drug Allergy 2 [facility] Repository (1 source) Vancomycin Drug Allergy 2 [facility] Repository Medications Current Medications Medication Drug Class(es) Dates Sig (Normalized) Sig (Original) [id number] 200 actuat albuterol 0.09 mg/actuat metered dose [...] oral tablet (1 source) alpha-Adrenergic Agonist, Uncompetitive N-svkcyi-E-aspartat e Receptor Antagonist, Sigma-1 Agonist Start: 05-11-2021 Capmist DM 60-15-400 MG 1 tablet at 4 hour intervals as needed Orally Four times a day for 10 day(s) May, Active dextromethorphan hydrobromide 1.5 mg/ml / pyrilamine maleate 1.5 mg/ml oral solution (2 sources) Uncompetitive N-qaadvz-W-aspartat e Receptor Antagonist, Sigma-1 Agonist Start: 05-06-2021 take 20 mL by mouth every eight hours [place] DM 7.5-7.5 MG/5ML 20 mL Orally every [...] [CONTACT W/AND (SUSP) EXPOS COVID-19] Onset: 05-17-2021 Past or Other Problems Problem Classification Problem [...] Test Name Value Interpretation Reference Range Facility [facility] 10-24-2023 L Specimen: [id number] Received: 10/24/23 Status: EDUAR Cooper Num: [id number] Spec Type: Surgical Subm Dr: Luciana Thapa Tissues: A Uterus w/ or w/o tubes ovaries except neoplastic or prolap (CERVIX, SHAHID FT Procedures: HE/12, Gross/Micro L5 Age/ Patient Sex Location Account Attending Physician KateythonyKonstantin Cooper 47/F [place] [id number] Luciana Thapa SPEC NUM: [id number] RECD: 10/24/23 STATUS: EDUAR COOPER NUM: [id number] KARYNA: 10/24/[address]: Luciana Thapa ENTERED: 10/24/[address] [facility] DR: Teresita,Lab SPEC TYPE: Surgical DEPT: MISTI GARCIA ORDERED: HE/12, Gross/Micro L5 ORDERED: HE/12, Gross/Micro L5 Pathological Diagnosis Uterus, Cervix and Tubes, Hysterectomy: Uterus: Leiomyoma. Adenomyosis. Secretory endometrium. Cervix: Unremarkable. Fallopian Tubes: Paratubal cyst. Gross Description Received in formalin labeled with the patient's name and uterus and cervix and bilateral fallopian tubes is a 218 g uterus with attached cervix, and detached, undesignated bila teral fallopian tubes. The uterus measures 8.4 cm cornu to cornu, 10.5 cm fundus to os, 6.4 cm anterior-posterior, with an-pink, smooth and glistening serosa.?The roughened brown cervix is 2.5 cm long and 3.1 cm wide, leading to a 3.7 x 2.2 cm ectocervix with a 1.5 x 0.4 cm patent os.?The 2.5 cm long and 0.7 x 1.2 cm wide endocervical canal contains multiple mucinous cystic structures ranging from 0.4 to 1.2 cm, and leads to a triangular 4.7 cm fundus to internal os and 3.0 cm cornu to cornu endometrial cavity.? The an-red, hemorrhagic and sloughing 0.2 cm thick endometrium overlies a 2.3 cm thick an, coarsely, trabeculated myometrium.? Sectioning into the posterior half reveals a 0.6 x 0.5 x 0.4 cm white, well-circumscribed an fibrous nodule. Additionally within the posterior half, there is a 3.4 x 3.3 x 2.5 cm white-pink, fibrous and poorly circumscribed nodular area. The first fallopian tube segment does not contain a fimbriated end and measures 2.1 cm in length by 0.4 cm in diameter. The second fallopian tube is fimbriated and measures 4.6 cm in length by 0.5 cm in diameter. The serosal surface of each tube is an-purple and contains a 0.4 x 0.3 cm and 0.3 x 0.2 cm clear fluid-filled Cut surfaces for each tube reveal intact luminal centers lined by an mucosa. [facility] presentative sections submitted as follows: -------- Specimen: [id number] Received: 10/24/23 Status: EDUAR Cooper Num: [id number] Spec Type: Surgical Subm Dr: Luciana Thaap Tissues: A Uterus w/ or w/o tubes ovaries except neoplastic or prolap (CERVIX, SHAHID FT Procedures: , Gross/Micro L5 -------- Patient: Konstantin Bartlett [id number] (Continued) -------- Specimen: [id number] Received: 10/24/23 (Continued) Gross Description (Continued) Signed (signature on file) Katherin Zavala MD 10/25/23 1707 -------- Specimen: [id number] Received: 10/24/23 Status: EDUAR Cooper Num: [id number] Spec Type: Surgical Subm Dr: Luciana Thapa Tissues: A Uterus w/ or w/o tubes ovaries except neoplastic or prolap (CERVIX, SHAHID FT Procedures: , Gross/Micro L5 -------- Patient: Konstantin Bartlett [id number] (Continued) -------- Specimen: [id number] Received: 10/24/23 (Continued) Gross Description (Continued) A1-A2: Anterior cervix to include cystic areas A3-A4: Posterior cervix to include cystic areas A5: Anterior endomyometrium A6: Posterior endomyometrium A7-A9: Small white nodule A10: Fallopian tube # 1 A11: Fallopian tube #2 Clinical history: Menorrhagia, pelvic an, dyspareunia, dysmenorrhea CPT Codes 46693 UTERUS -------- -------- Specimen: [id number] Received: 10/24/23 Status: EDUAR Cooper Num: [id number] Spec Type: Surgical Subm Dr: Luciana Thapa Tissues: A Uterus w/ or w/o tubes ovaries except neoplastic or prolap (CERVIX, SHAHID FT Procedures: , Gross/Micro L5 -------- Patient: Konstantin Bartlett [id number] (Continued) -------- Signed (more content not included)... Normal [facility] XR knee LT 4V*on 04-04-2022 XR knee LT 4V* [facility] [employer] Other XR knee LT 4V* [facility] [employer] Other XR knee LT 4V* [address] [place] [address] [employer] Other XR knee LT 4V* [place] [address] No rt My[employer] Other XR knee LT 4V* XRay Report [employer] Other XR knee LT 4V* Signed [employer] Other XR knee LT 4V* Patient: Konstantin Bartlett MR#: [id number] [employer] Other XR knee LT 4V* 978 [employer] Other XR knee LT 4V* : 1975 Acct:[id number] [employer] Other XR knee LT 4V* Age/Sex: 46 / F ADM Date: 04/04/22 [employer] Other XR knee LT 4V* Loc: XDUCLY Room: Type: REG CLI [employer] Other XR knee LT 4V* Attending Dr: Sis CHRIS [employer] Other XR knee LT 4V* Copies to: DOT Mackenzie [employer] Other XR knee LT 4V* Ordering Provider: DOT Mackenzie [employer] Other XR knee LT 4V* Date of Service: 04/04/22 [employer] Other XR knee LT 4V* XR/XR knee LT 4V*: Acute pain of left knee [employer] Other XR knee LT 4V* XR knee LT 4V* 04/04/2022 12:28 PM [employer] Other XR knee LT 4V* SIGNS AND SYMPTOMS: Left knee pain [employer] Other XR knee LT 4V* PROTOCOL: Frontal, lateral, and oblique radiographs of the left knee [employer] Other XR knee LT 4V* COMPARISON: None [facility] [employer] Other XR knee LT 4V* FINDINGS: [employer] Other XR knee LT 4V* There is mild narrowing of the weightbearing and patellofemoral joint spaces. There is [employer] Other XR knee LT 4V* enthesophyte formation at the poles of the patella. There is no joint effusion or soft tissue [employer] Other XR knee LT 4V* swelling. No fractur e or dislocation. [employer] Other XR knee LT 4V* XR/XR knee LT 4V* [employer] Other XR knee LT 4V* IMPRESSION: [employer] Other XR knee LT 4V* Mild tricompartmenta l degenerative changes are noted. [employer] Other XR knee LT 4V* No acute bony injury. [employer] Other XR knee LT 4V* Impression dictated by: Jasen Starkey M.D.04/04/2022 12:53 PM [employer] Other XR knee LT 4V* Dictation Location: [place] [address] [employer] Other XR knee LT 4V* Transcribed By: PWS 04/04/22 1253 [employer] Other XR knee LT 4V* Dictated By: Jasen Starkey II, MD 04/04/22 1249 [employer] Other XR knee LT 4V* Signed By: [employer] Other XR knee LT 4V* 04/04/22 1253 [employer] Other CARDIAC JASEN ADMITon 021 CK [Catalytic activity/Vol] 114 U/L Normal 30-135 [facility] Comment on above: Performed By: #### B DARIO MCCOY #### [facility] [address] [place] [address] Dr. Amy Cantu CK.MB [Mass/Vol] 0.95 ng/mL Normal <=2.37 [facility] Comment on above: Performed By: #### DARIO Franz MP #### [facility] [address] [place] [address] Dr. Amy Cantu HSTROP 6.1 pg/mL Normal 4.0-35.5 [facility] Comment on above: Result Comment: CUT- OFF POINTS HAVE BEEN ESTABLISHED BASED ON THE FOURTH UNIVERSAL DEFINITIONS OF MYOCARDIAL INFARCTION. THE UPPER REFERENCE LIMIT (URL) OF TROPONIN, DEFINED THE 99TH PERCENTILE OF cTnI DISTRIBUTION IN A REFERENCE POPULATION, HAS BEEN CONFIRMED THE DECISION THRESHOLD FOR ND DIAGNOSIS. Performed By: #### DARIO Franz MP #### [facility] [address] [place] [address] Dr. Amy Cantu JUVE 43.0 ng/mL Normal <=61.5 [facility] Comment on above: Performed By: #### B DARIO MCCOY #### [facility] [address] [place] [address] Dr. Amy Cantu CBC AUTO DIFFon 06-05-2021 BASO # 0.1 103/ul Normal 0.0-0.1 [facility] Comment on above: Performed By: #### C BC #### [facility] [address] [address] [address] Amy Cantu Basophils/100 WBC (Bld) 0.9 % Normal 0.2-2.0 [facility] Comment on above: Performed By: #### C BC #### [facility] [address] [address] [address] Amy Cantu EO # 0.2 103/ul Normal 0.0-0.7 [facility] Comment on above: Performed By: #### C BC #### [facility] [address] [place] [address] Dr. Amy Cantu Eosinophils/100 WBC (Bld) 3.1 % Normal 0.9-7.0 [facility] Comment on above: Performed By: #### C BC #### [facility] [address] [place] [address] Dr. Amy Cantu Erythrocyte distribution width (RBC) [Ratio] 16.8 % Critically high 11.0-15.0 [facility] Comment on above: Performed By: #### C BC #### [facility] [address] [place] [address] Dr. Amy Cantu Hematocrit (Bld) [Volume fraction] 32.1 % Critically low 36.0-48.0 [facility] Comment on above: Performed By: #### C BC #### [facility] [address] [place] [address] Dr. Amy Cantu Hemoglobin (Bld) [Mass/Vol] 9.6 g/dL Critically low 12.0-16.0 [facility] Comment on above: Performed By: #### C BC #### [facility] [address] [place] [address] Dr. Amy Cantu IG # 0.03 10e3/ul Normal 0.00-0.03 [facility] Comment on above: Performed By: #### C BC #### [facility] [address] [place] [address] Dr. Amy Cantu IG % 0.5 % Normal 0.0-0.5 [facility] Comment on above: Performed By: #### C BC #### [facility] [address] [address] [address] Amy Cantu LYMPH # 1.8 103/ul Normal 1.2-3.8 [facility] Comment on above: Performed By: #### C BC #### [facility] [address] [place] [address] Dr. Amy Cantu Lymphocytes/100 WBC (Bld) 28.5 % Normal 20.5-60.0 [facility] Comment on above: Performed By: #### C BC #### [facility] [address] [place] [address] Dr. Amy Cantu MANUAL DIFF REQ NO Normal [facility] Comment on above: Performed By: #### C BC #### [facility] [address] [place] [address] Dr. Amy Cantu MCH (RBC) [Entitic mass] 23.3 pg Critically low 26.7-34.0 [facility] Comment on above: Performed By: #### C BC #### [facility] [address] [place] [address] Dr. Amy Cantu MCHC (RBC) [Mass/Vol] 29.9 g/dL Normal 29.9-35.2 [facility] Comment on above: Performed By: #### C BC #### [facility] [address] [place] [address] Dr. Amy Cantu MCV (RBC) [Entitic vol] 77.9 fL Critically low 81.0-99.0 [facility] Comment on above: Performed By: #### C BC #### [facility] [address] [place] [address] Dr. Amy Cantu MONO # 0.7 103/ul Normal 0.3-0.8 [facility] Comment on above: Performed By: #### C BC #### [facility] [address] [place] [address] Dr. Amy Cantu Monocytes/100 WBC (Bld) 11.3 % Normal 1.7-12.0 [facility] Comment on above: Performed By: #### C BC #### [facility] [address] [place] [address] Dr. Amy Cantu NEUT # 3.6 103/ul Normal 1.4-6.5 [facility] Comment on above: Performed By: #### C BC #### [facility] [address] [address] [address] Amy Cantu Neutrophils/100 WBC (Bld) 55.7 % Normal 43.0-75.0 [facility] Comment on above: Performed By: #### C BC #### [facility] [address] [address] [address] Amy Cantu Platelet mean volume (Bld) [Entitic vol] 9.5 fL Normal 9.5-13.5 [facility] Comment on above: Performed By: #### C BC #### [facility] [address] [place] [address] Dr. Amy Cantu PLT 396 103/ul Normal 150-450 [facility] Comment on above: Performed By: #### C BC #### [facility] [address] [place] [address] Dr. Amy Cantu RBC 4.12 106/ul Critically low 4.20-5.40 [facility] Comment on above: Performed By: #### C BC #### [facility] [address] [place] [address] Dr. Amy Cantu WBC 6.5 103/ul Normal 4.0-11.0 [facility] Comment on above: Performed By: #### C BC #### [facility] [address] [place] [address] Dr. Amy Cant[facility] SARS-CoV-2 (COVID-19) RNA MAYRA+probe Ql (Unsp spec) Not detected Normal NOT DETECTED [facility] Comment on above: Result Comment: This test is not yet approved or cleared by the [place] FDA. When there are no FDA-approved or cleared tests available, and other criteria are met, FDA can make tests available under an emergency access mechanism called an Emergency Use Authorization (EUA). The EUA for this test is supported by the [place] of Health and Human Service's (HHS's) declaration [...] SARS-CoV-2. Performed By: #### C VDTBH #### [facility] [address] [place] [address] Dr. Amy Cantu D-DIMERon 06-05-2021 D-DIMER 0.81 mg/L FEU Critically high 0.19-0.50 [facility] Comment on above: Performed By: #### L BCFS #### [facility] [address] [place] [address] Bassam Slater D-DIMER COMMENTS SEE BELOW Normal [facility] Comment on above: Result Comment: Incr eases [...] hospitalization. Performed By: #### L BCFS #### [facility] [address] [place] [address] Bassam Slater PROF CHEM 8 (BAS METB)on Anion gap [Moles/Vol] 9.1 mmol/L Normal [facility] Comment on above: Performed By: #### B MP, CMADM #### [facility] [address] [place] [address] Dr. Amy Cantu Calcium [Mass/Vol] 9.0 mg/dL Normal 8.4-10.2 [facility] Comment on above: Performed By: #### B NADINE, CMADM #### [facility] [address] [address] [address] Amy Cantu Chloride [Moles/Vol] 103 mmol/L Normal 98-107 [facility] Comment on above: Performed By: #### B MP, CMADM #### [facility] [address] [address] [address] Amy Cantu CO2 [Moles/Vol] 26.7 mmol/L Normal 22.0-30.0 [facility] Comment on above: Performed By: #### B NADINE, CMADM #### [facility] [address] [address] [address] Amy Cantu Creatinine [Mass/Vol] 0.99 mg/dL Normal 0.52-1.04 [facility] Comment on above: Performed By: #### B NADINE, CMADM #### [facility] [address] [address] [address] Amy Cantu EGFR-AF GUATEMALAN >60 Normal >=60 [facility] Comment on above: Performed By: #### B NADINE, CMADM #### [facility] [address] [address] [address] Amy Cantu EGFR-NON AF GUATEMALAN =60 Normal >=60 [facility] Comment on above: Performed By: #### B NADINE, CMADM #### [facility] [address] [address] [address] Amy Cantu Glucose [Mass/Vol] 135 mg/dL Critically high 74-106 [facility] Comment on above: Performed By: #### B NADINE, CMADM #### [facility] [address] [address] [address] Amy Cantu Potassium [Moles/Vol] 3.8 mmol/L Normal 3.4-5.0 [facility] Comment on above: Performed By: #### B MP, CMADM #### [facility] [address] [address] [address] Amy Cantu Sodium [Moles/Vol] 135 mmol/L Critically low 137-145 [facility] Comment on above: Performed By: #### B NADINE, CMADM #### [facility] [address] [address] [address] Amy Cantu Urea nitrogen [Mass/Vol] 17.0 mg/dL Normal 7.0-17.0 [facility] Comment on above: Performed By: #### B MP, CMADM #### [facility] [address] [address] [address] Amy Cantu Urea nitrogen/Creatini ne [Mass ratio] 17.2 mg/mg Normal [facility] Comment on above: Performed By: #### B MP, CMADM #### [facility] [address] [address] [address] Amy Cantu Covid-[facility] PCR ([facility]on 05-02 SARS-CoV-2 (COVID-19) RNA MAYRA+probe Ql (Unsp spec) Not detected Normal NOT DETECTED [facility] Comment on above: Result Comment: This test is not yet approved or cleared by the [place] FDA. When there are no FDA-approved or cleared tests available, and other criteria are met, FDA can make tests available under an emergency access mechanism called an Emergency Use Authorization (EUA). The EUA for this test is supported by the [place] of Health and Human Service's (HHS's) declaration [...] SARS-CoV-2. Performed By: #### C VDTBH #### [facility] [address] [place] [address] Dr. Amy Cantu US PELVIS TRANSVAGon 021 [...] by: ERON GARCIA Date: 2020-08-19 15:17 Normal [facility] FSHon 07-27-2020 FSH 4.6 mIU/mL Normal [facility] Comment on above: Result Comment: Adul t Female: Follicular phase 3.5 - 12.5 Ovulation phase 4.7 - 21.5 Luteal phase 1.7 - 7.7 Postmenopausal 25.8 - 134.8 Performed By: #### L BCFS #### [facility] [address] [place], [place] [id number] Bassam Slater LUTEINIZING HORMONE (LH)on 0 07-27-2020 LH 7.8 mIU/mL Normal [facility] Comment on above: Result Comment: Adul t Female: Follicular phase 2.4 - 12.6 Ovulation phase 14.0 - 95.6 Luteal phase 1.0 - 11.4 Postmenopausal 7.7 - 58.5 Performed By: #### L BCFSH #### [facility] [address] [place], [place] [id number] Bassam Slater PAP ACOG PANEL 2: 30 to 65on 07-27-2020 . . Normal [facility] Comment on above: Result Comment: Perf ormed at: WB Performed By: #### [id number] #### [facility] [address] [place], [place] [id number] Bassam Slater Age Gdln ACOG Testing 30-65 Normal [facility] Comment on above: Performed By: #### [id number] #### [facility] [address] [place] [address] Bassam Slater DIAGNOSIS: Comment Normal [facility] Comment on above: Result Comment: NEGA TIVE FOR INTRAEPITHELIAL LESION OR MALIGNANCY. Performed at: WB Performed By: #### [id number] #### [facility] [address] [address] Bassam Nohemy HPV Aptima Negative Normal Negative [facility] Comment on above: Result Comment: This nucleic acid amplification test detects fourteen high-risk HPV types (16,18,31,33,35,39,45,51,52,56,58,59,66,68) without differentiation. Performed at: =G Performed By: #### [id number] #### [facility] [address] [place] [address] Bassam Slater Methodology: Comment Normal [facility] Comment on above: Result Comment: This liquid based ThinPrep(R) pap test was screened with the use of an image guided system. Performed at: WB Performed By: #### [id number] #### [facility] [address] [place] [address] Bassam Nohemy Note: Comment Normal [facility] Comment on above: Result Comment: The Pap smear is a screening test designed to aid in the detection of premalignant and malignant conditions of the uterine cervix. It is not a diagnostic procedure and should not be used as the sole means of detecting cervical cancer. Both false-positive and false-negative reports do occur. . Performed at: WB Performed By: #### [id number] #### [facility] [address] [place] [address] Bassam Slater Performed by: Comment Normal [facility] Comment on above: Result Comment: Radha Cesar, Oil Expert (ASCP) Performed at: WB Performed By: #### [id number] #### [facility] [address] [place] [address] Bassam Slater Specimen adequacy: Comment Normal [facility] Comment on above: Result Comment: Sati sfactory for evaluation. Endocervical and/or squamous metaplastic cells (endocervical component) are present. Performed at: WB Performed By: #### [id number] #### [facility] [address] [place], [place] [id number] Bassam Nohemy CBC AUTO DIFFon 07-26-2020 BASO # 0.1 103/ul Normal 0.0-0.1 [facility] Comment on above: Performed By: #### L BCFSH #### [facility] [address] [place], [place] [id number] Bassam Nohemy Basophils/100 WBC (Bld) 1.0 % Normal 0.2-2.0 [facility] Comment on above: Performed By: #### L BCFSH #### [facility] [address] [place], [place] [id number] Bassam Nohemy EO # 0.2 103/ul Normal 0.0-0.7 [facility] Comment on above: Performed By: #### L BCFSH #### [facility] [address] [place] [address] Bassam Nohemy Eosinophils/100 WBC (Bld) 2.6 % Normal 0.9-7.0 [facility] Comment on above: Performed By: #### L BCFSH #### [facility] [address] [place], [place] [id number] Bassam Nohemy Erythrocyte distribution width (RBC) [Ratio] 16.3 % Critically high 11.0-15.0 [facility] Comment on above: Performed By: #### L BCFSH #### [facility] [address] [place], [place] [id number] Bassam Nohemy Hematocrit (Bld) [Volume fraction] 38.5 % Normal 36.0-48.0 [facility] Comment on above: Performed By: #### L BCFSH #### [facility] [address] [place], [place] [id number] Bassam Nohemy Hemoglobin (Bld) [Mass/Vol] 12.1 g/dL Normal 12.0-16.0 [facility] Comment on above: Performed By: #### L [facility] #### [facility] [address] [id number] Bassam Nohemy IG # 0.01 10e3/ul Normal 0.00-0.03 [facility] Comment on above: Performed By: #### L BCFS #### [facility] [address] [id number] Bassam Nohemy IG % 0.1 % Normal 0.0-0.5 [facility] Comment on above: Performed By: #### L BCFS #### [facility] [address] [address] Bassam Nohemy LYMPH # 2.6 103/ul Normal 1.2-3.8 [facility] Comment on above: Performed By: #### L [facility] #### [facility] [address] [place], [place] [id number] Bassam Nohemy Lymphocytes/100 WBC (Bld) 31.8 % Normal 20.5-60.0 [facility] Comment on above: Performed By: #### [facility] #### [facility] [address] [place], [place] [id number] Bassam Nohemy MANUAL DIFF REQ NO Normal The [facility] Comment on above: Performed By: #### L BCFS #### [facility] [address] [place], [place] [id number] Bassam Nohemy MCH (RBC) [Entitic mass] 25.4 pg Critically low 26.7-34.0 [facility] Comment on above: Performed By: #### L BCFS #### [facility] [address] [place] [address] Bassam Nohemy MCHC (RBC) [Mass/Vol] 31.4 g/dL Normal 29.9-35.2 [facility] Comment on above: Performed By: #### L BCFS #### [facility] [address] [place], [place] [id number] Bassam Nohemy MCV (RBC) [Entitic vol] 80.9 fL Critically low 81.0-99.0 [facility] Comment on above: Performed By: #### L BCFS #### [facility] [address] [place], [place] [address] Bassam Nohemy MONO # 0.5 103/ul Normal 0.3-0.8 [facility] Comment on above: Performed By: #### L [facility] #### [facility] [address], [place] [address] Bassam Nohemy Monocytes/100 WBC (Bld) 5.8 % Normal 1.7-12.0 [facility] Comment on above: Performed By: #### L [facility] #### [facility] [address] [place] [address] Bassam Nohemy NEUT # 4.7 103/ul Normal 1.4-6.5 [facility] Comment on above: Performed By: #### L [facility] #### [facility] [address] [place], [place] [id number] Bassam Nohemy Neutrophils/100 WBC (Bld) 58.7 % Normal 43.0-75.0 [facility] Comment on above: Performed By: #### L [facility] #### [facility] [address] [place] [address] Bassam Nohemy Platelet mean volume (Bld) [Entitic vol] 9.5 fL Normal 9.5-13.5 [facility] Comment on above: Performed By: #### [facility] #### [facility] [address] [place] [address] Bassam Nohemy PLT 422 103/ul Normal 150-450 [facility] Comment on above: Performed By: #### [facility] #### [facility] [address] [place], [place] [id number] Bassam Nohemy RBC 4.76 106/ul Normal 4.20-5.40 [facility] Comment on above: Performed By: #### [facility] #### [facility] [address] [place], [place] [id number] Bassam Nohemy WBC 8.1 103/ul Normal 4.0-11.0 [facility] Comment on above: Performed By: #### [facility] #### [facility] [address] [place], [place] [phone] Bassam Slater TSHon 07-26-2020 TSH 4.081 uIU/mL Normal 0.470-4.680 [facility] Comment on above: Performed By: #### T SH #### [facility] [address] [address] Bassam Slater TSH RANGE SEE BELOW Normal [facility] Comment on above: Result Comment: <0.3 4 UIU/ml HYPERTHYROID 0.34-5.60 UIU/ml EUTHYROID >5.60 UIU/ml HYPOTHYROID Performed By: #### T SH #### [facility] [address] [address] Bassam Slater Vital Signs Date Time Vital Sign Value Performing Clinician Facility 04-06-2022 12:00-0400 Body height 162.56 cm [employer] Other [employer] Other 04-06-2022 12:00-0400 Body mass index (BMI) [Ratio] 46.86 kg/m2 [employer] Other [facility] Other 04-06-2022 12:00-0400 Body weight 123.83 kg [employer] Other [employer] Other 04-04-2022 13:05-0400 Body height 162.56 cm Sis Pratt Other [employer] Other 04-04-2022 13:05-0400 Body temperature 98 [degF] Sis Santa Other [employer] Other 04-04-2022 13:05-0400 Diastolic blood pressure 81 mm[Hg] Sis Pratt Other [facility] [employer] Other 04-04-2022 13:05-0400 Respiratory rate 18 /min Sis Pratt Other [facility] [employer] Other 04-04-2022 13:05-0400 SaO2% (BldA) [Mass fraction] 100 % Sis Pratt Other [facility] [employer] Other 04-04-2022 13:05-0400 Systolic blood pressure 127 mm[Hg] Sis Santa Other [facility] [employer] Other 05-11-2021 15:00-0500 Body height 162.56 cm Sis Santa Other [facility] [employer] Other 05-11-2021 15:00-0500 Body mass index (BMI) [Ratio] 46.34 kg/m2 Sis Santa Other [facility] [employer] Other 05-11-2021 15:00-0500 Body temperature 98.4 [degF] Sis Ludwigmond Other [facility] [employer] Other 05-11-2021 15:00-0500 Body weight 122.47 kg Sis Ludwigmond Other [facility] [employer] Other 05-11-2021 15:00-0500 Respiratory rate 18 /min Sis Ludwigmond Other [employer] Other 05-11-2021 15:00-0500 SaO2% (BldA) [Mass fraction] 96 % Sis Santa Other [employer] Other 05-06-2021 14:45-0400 Body height 162.56 cm Nicki Samanta Other [facility] Other 05-06-2021 14:45-0400 Body mass index (BMI) [Ratio] 46.34 kg/m2 Nicki Ginty Other [facility] [employer] Other 05-06-2021 14:45-0400 Body temperature 98.2 [degF] Nicki Vidhyanty Other [facility] [employer] Other 05-06-2021 14:45-0400 Body weight 122.47 kg Nicki Vidhyanty Other [facility] [employer] Other 05-06-2021 14:45-0400 SaO2% (BldA) [Mass fraction] 99 % Nicki Vidhyanty Other [employer] Other Encounters Encounter Date Encounter Type Care Provider Facility Start: 12-05-2023 End: 12-05-2023 ambulatory IRENE REID Not Available Start: 10-31-2023 End: 10-31-2023 ambulatory IRENE REID Not Available Start: 10-24-2023 End: 10-24-2023 ambulatory PHYSICIAN NO [facility] Facility:[facility] Start: 10-24-2023 End: 10-24-2023 ambulatory PHYSICIAN NO [facility] Work Phone: Start: 10-24-2023 End: 10-24-2023 Departed Referred PHYSICIAN NO [facility] Start: 09-24-2023 End: 09-24-2023 ambulatory LUCIANA THAPA Not Available Start: 07-26-2023 End: 07-26-2023 ambulatory IRENE FRANKLIN Not Available Start: 05-29-2023 End: 05-29-2023 ambulatory GRIFFIN RAMIREZ Not Available Start: 05-11-2023 Telephone encounter Barbara HAWK [facility] Start: 04-19-2022 End: 04-19-2022 ambulatory Marko Portillo II Other [employer] Other Start: 04-19-2022 Office outpatient vi sit 25 minutes Marko Portillo II [facility] Start: 04-13-2022 End: 04-13-2022 ambulatory PHYSICIAN NO [facility] Work Phone: Start: 04-13-2022 End: 04-13-2022 Patient encounter procedure PHYSICIAN NO [facility] [address] Start: 04-07-2022 End: 04-07-2022 ambulatory Marko Portillo II Other [employer] Other Start: 04-07-2022 Telephone encounter Marko Portillo II [facility] Start: 04-06-2022 Office outpatient ne w 45 minutes Marko Shahle II [facility] Start: 04-06-2022 End: 04-06-2022 ambulatory PHYSICIAN NO [facility] Work Phone: Start: 04-06-2022 End: 04-06-2022 Patient encounter procedure PHYSICIAN NO [facility] Start: 04-04-2022 Office outpatient vi sit 15 minutes Sis Santa [facility] Start: 04-04-2022 End: 04-04-2022 ambulatory PHYSICIAN NO [employer] Other Start: 04-04-2022 End: 04-04-2022 Patient encounter procedure PHYSICIAN NO [facility] Start: 06-05-2021 End: 06-06-[address] KENNY HUERTAS Facility:[facility] Start: 05-12-2021 End: 05-12-[address] DOCTOR CEBALLOS Facility:[facility] Start: 05-11-2021 End: 05-11-2021 ambulatory Sis Santa Other [employer] Other Start: 05-11-2021 Office outpatient vi sit 15 minutes Sis Santa [facility] Start: 05-06-2021 End: 05-06-2021 ambulatory Nicki Ginty Other [employer] Other Start: 05-06-2021 Office outpatient vi sit 15 minutes Nicki Ginty [facility] Start: 10-15-[address] LUCIANA THAPA Facility :[facility] Start: 10-14-2020 Encounter for other preprocedural examination DR LUCIANA THAPA [facility] Start: 10-12-[address] LUCIANA THAPA Facility :[facility] Start: 10-07-2020 End: 10-08-[address] LUCIANA THAPA Facility:[facility] Start: 10-07-2020 End: 10-08-2020 Encounter for other preprocedural examination DR LUCIANA THAPA Facility:[facility] Start: 08-19-2020 End: 08-20-[address] LUCIANA THAPA Facility:[facility] Start: 07-26-2020 End: 07-27-[address] LUCIANA THAPA Facility:[facility] Start: 07-22-2020 End: 07-22-[address] LUCIANA THAPA Facility:[facility] Procedures Date Procedure Procedure Detail Performing Clinician Start: 04-13-2022 MRI of left knee PHYSIC DEVORA NO FAMILY Start: 04-06-2022 Pelvis X-ray PHYSICIAN NO FAMILY Start: 04-06-2022 Radiologic examinati on of knee PHYSICIAN NO FAMILY Start: 04-04-2022 Radiologic examinati on of knee PHYSICIAN NO FAMILY Plan of Treatment Date Care Activity Detail Author Start: 05-09-2024 Tobacco Screening Tobacco Screening [place] Start: 03-02-2023 Influenza vaccination Influenza Vacc ine [place] Start: 1994 Screening for malign ant neoplasm of cervix Pap Smear [place] Start: 1992 DTaP,Tdap and Td Vaccines (1 - Tdap) DTaP,Tdap and Td Vaccines (1 - Tdap) [place] Start: 11-26-1991 Adult BMI Screening Adult BMI Screen ing [facility] [email or web address] [facility] Start: 1985 Depression Screening Depression Scre ening [place] Payers Date Payer Category Payer Self-pay [id number] 2022 Private Health [facility] [id number] 2022-Present [phone] [address] [address] [place] [address] [id number] 2022 Unknown [id number] 2022 Unknown [id number] 1973 Unknown [id number] 2.16.840.1.953755.3.579. 2.593 1973 Unknown [id number] 2.16.840.1.733162.3.579. 2.593 1973 Unknown [id number] 2.16.840.1.653086.3.579. 2.593 1973 Unknown [id number] 2.16.840.1.201420.3.579. 2.593 1973 Unknown [id number] 2.16.840.1.399298.3.579. 2.593 1973 Unknown [id number] 2.16.840.1.757376.3.579. 2.593 1973 Unknown [id number] 2.16.840.1.720463.3.579. 2.593 1973 Unknown [id number] 2.16.840.1.842612.3.579. 2.593 1973 Unknown [id number] 2.16.840.1.780932.3.579. 2.125 1973 Unknown [id number] 2.16.840.1.071778.3.579. 2.125 1973 Unknown [id number] 2.16.840.1.604208.3.579. 2.125 1973 Unknown [id number] 2.16.840.1.533747.3.579. 2.1259 1973 Unknown [id number] 2.16.840.1.950990.3.579. 2.1259 1959 Unknown [id number] Unknown [id number] 2.16.840.1.532746.3.579. 2.531 Social History Date Type Detail Facility Start: 05-09-2023 Sex Assigned At N [employer] Other Start: 1975 Sex Assigned At Female F [facility] Start: 05-09-2023 Tobacco smoking status NHIS Ex-smoker [place] History of tobacco use Current smoker [place] History of tobacco use Cigarette Smoker [place] Start: 05-09-2023 Tobacco use and exposure Smokeless tobacco non-user [facility] Start: 05-09-2023 Alcohol intake Current drinke r of alcohol (finding) [place] Start: 05-09-2023 History of Social function [place] Within the past 12 months we worried whether our food would run out before we got money to buy more. Never True [place] Start: 05-09-2023 Alcohol Comment rare [facility] Start: 1975 Sex Assigned At Not on file P [facility] Clinical Notes 05-06-2021 to 05-11-2023 Telephone Encounter - MIR Kennedy - 05/11/2023 1:10 PM ESTTelephone Encounter - MIR Kennedy - 05/11/2023 1:10 PM EST Note Date & Type Note Facility 05-11-2023 Miscellaneous Notes Formattin g of this note might be different from the original. Called patient to schedule her colonoscopy for [facility]. Unable to make contact with patient, left voicemail message for patient to call our office back. Called patient to schedule her colonoscopy with Dr. Naranjo for [facility]. Unable to make contact with patient, left voicemail message for patient to call our office back. Called patients emergency contact for unable to make contact with patient to schedule her colonoscopy with Dr. Naranjo for [facility]. Unable to make contact with patients emergency contact, left voicemail message for patients emergency contact to have patient call our office back. Called patients emergency contact for unable to make contact with patient to schedule her colonoscopy with Dr. Naranjo for [facility]. Unable to make contact with patients emergency contact, left voicemail message for patients emergency contact to have patient call our office back. Called patient and patients emergency contact to schedule her colonoscopy with Dr. Naranjo for [facility]. Unable to make contact with patient, left voicemail messages for patient to call our office back. I called the patient today 05/31/23 and left a message to call the office to schedule a colonoscopy at [facility] with Dr. Naranjo. I called Konstantin and left a message to call the office to schedule her procedure at the [facility]. documented in this encounter [facility] [email or web address] [facility] 05-11-2023 Telephone encount er Note Called patient to schedule her colonoscopy for [facility]. Unable to make contact with patient, left voicemail message for patient to call our office back. [facility] [email or web address] [facility] 05-11-2023 Telephone encount er Note Called patient to schedule her colonoscopy with Dr. Naranjo for [facility]. Unable to make contact with patient, left voicemail message for patient to call our office back. [employer] 05-11-2023 Telephone encount er Note Called patients emergency contact for unable to make contact with patient to schedule her colonoscopy with Dr. Naranjo for [facility]. Unable to make contact with patients emergency contact, left voicemail message for patients emergency contact to have patient call our office back. [facility] [employer] 05-11-2023 Telephone encount er Note Called patients emergency contact for unable to make contact with patient to schedule her colonoscopy with Dr. Naranjo for [facility]. Unable to make contact with patients emergency contact, left voicemail message for patients emergency contact to have patient call our office back. [employer] 05-11-2023 Telephone encount er Note Called patient and patients emergency contact to schedule her colonoscopy with Dr. Naranjo for [facility]. Unable to make contact with patient, left voicemail messages for patient to call our office back. [facility] [employer] 05-11-2023 Telephone encount er Note I called the patient today 05/31/23 and left a message to call the office to schedule a colonoscopy at [facility] with Dr. Naranjo. [employer] 05-11-2023 Telephone encount er Note I called Konstantin and left a message to call the office to schedule her procedure at the [facility]. [employer] 04-19-2022 Evaluation note Encounter Date Diagnosis Assessment [...] well. Follow-up in 6 to 8 weeks. [employer] Other 10-06-2022 Evaluation note* Encounter Date Diagnosis [...] was a meniscus tear amenable to fixation. [employer] Other 10-04-2022 Evaluation note* Encounter Date Diagnosis [...] no improvement in 5 to 7 days. [employer] Other 12-06-2021 NotePROCEDURE: CTA CHEST WO W [...] 3-D images were rendered on a separate [employer] workstation. MIP imaging is also submitted. Images [...] series 4 are not included in the [id number]. AORTA AND VASCULATURE: There is normal caliber [...] Electronically authenticated by: YOLIS WAYNE Date: 2021-06-06 00:43[facility]11-10-2021 Evaluation note* Encounter Date Diagnosis Assessment Notes Treatment Notes Treatment Clinical Notes May, Viral upper respiratory illness (ICD-10 - J06.9) [employer] Other 11-05-2021 Evaluation note* Encounter Date Diagnosis [...] increase fluids and rest, Tylenol/Motrin as directed, [place] and Flonase as directed, cool mist humidifier, throat lozenges. Advised patient that [place] contains cough suppressant and antihistamine and to [...] Patient care instructions given in writting by [facility] Care At Home document [facility] [employer] Other Evaluation noteNo assessment information available [facility] Work Phone: Evaluation noteNo InformationNortFoundations [facility] [employer] Other History general Narrative - Reported* Type Description Date Medical History chronic depression Surgical History pilonidal cyst Surgical History abscess on neck [facility] [employer] Other InstructionsNot on filedocumented in this encounter [facility] Summary Purpose Family History No Family History Records FoundNo Family History Records FoundNo Family History Records Found Advance Directives No Advanced Directives Records Found Advance Directive Response Recorded Date/ Time Advance Directives No July 15, 2021 1:08pm Chief Complaint and Reason for Visit Chief Complaint M25.562 M25.562 acute pain Chief Complaint Unknown Additional Source Comments INFORMATION SOURCE (unrecogn ized section and content) DATE CREATED AUTHOR 06/08/2021 [facility] DATE CREATED AUTHOR AUTHOR'S ORGANIZ ATION 10/26/2023 [facility] DATE CREATED AUTHOR AUTHOR'S ORGANIZ ATION 12/06/2023 [facility] EPIC REASON FOR VISIT (unrecogniz ed section and content) #20 ANTHONY MALIBU, H/A, SORE THROAT, COUGH, CONGESTION#21 MAROON MALIBU, COUGH, CONGESTION, H/A GETTING WORSELEFT KNEE PAINCLYDE UC LT KNEE PAIN SWELLING WXOrthopedic Office NotesF/U [place] [facility] Teams (unrecognized sec tion and content) Team Status: Inactive Member Role Status Dates PHYSICIAN NO FAMILY Primary Care Provider Active [employer] Dimas Attending Provider Active Team Status: Active Member Role Status Dates PHYSICIAN NO FAMILY Primary Care Provider Active Team Status: Inactive Member Role Status Dates PHYSICIAN NO FAMILY Primary Care Provider Active Marko Portillo II, MD Attending Provider Active [employer] Relationship Specialty Start Date End Date No P[place] [address] PCP - General Family Medicine 05/09/23 Team Status: Inactive Member Role Status Dates PHYSICIAN NO FAMILY Primary Care Provider Active Start: October 24, 2023 End: October 24, 2023 Luciana Thapa Attending Provider Active Start: 2023 End: October 24, 2023 Goals (unrecognized section and content) Goals may [...] BE BASED ON THE PRIMARY CLINICAL RECORDS. [employer] provides no warranty or guarantee of the accuracy or completeness of information in this document.
--- NOTE | 2024-07-29 20:20 | ED_ITS ---
HPI HPI - General Adult General Chief complaint: Neuro Symptoms/Deficit Stated complaint: Possible CVA Time Seen by Provider: 07/29/24 20:11 Source: patient Mode of arrival: walk-in Limitations: no limitations History of Present Illness HPI narrative: Patient states today she had some numbness to the left side of the face and felt as though she could not blink her left eye. That sensation has resolved. In the last 5 to 6 days she has reported frontal but mostly left frontal headache off and on. She has had sharp pains around and behind the left ear in the last 5 days. Tonight in the hour and a half prior to arrival the pain became more intense and then she noticed some fullness of the left side of her face and her partner noticed that she could not blink the left eye. That sensation has resolved. She has not noticed any facial rash. She denies any numbness, tingling or weakness of the extremities. She does not report chest pain or shortness of breath. Related Data Previous Rx's ?Medication ?Instructions ?Recorded doxycycline hyclate 100 mg capsule 100 mg PO BID 10 days #20 caps 07/29/24 ibuprofen 600 mg tablet 600 mg PO TID PRN pain #15 tabs 07/29/24 [id number] 3.3 4 drp otic (ear) TID #10 mL 07/29/24 mg-3 mg-10 mg-0.5 mg/mL ear drops,susp (Cortisporin-TC) Allergies Allergy/AdvReac Type Severity Reaction Status Date / Time vancomycin Allergy Severe Rash Verified 07/29/24 20:20 ciprofloxacin (From Cipro) Allergy Intermediate Rash Verified 07/29/24 20:20 Opioid HPI Opioid Management Most Recent Opioid Data: Last Pain Scale 4 10/25/23 10:53 10/25/23 Last ORT Total Score 0 10/24/23 11:55 10/24/23 Last ORT Risk Category Low Risk 10/24/23 11:55 10/24/23 Review of Systems ROS Status of ROS 10 or more systems reviewed and unremark able except as noted in history and below [facility] Medical History Dysmenorrhea ?N94.6 - Dysmenorrhea, unspecified (ICD-10) Dyspareunia Menorrhagia ?N92.0 - Excessive and frequent menstruation with regular cycle (ICD-10) Status post hysteroscopy (07/13/23) ?Z98.890 - Other specified postprocedural states (ICD-10) Knee pain ?M25.569 - Pain in unspecified knee (ICD-10) Back pain ?M54.9 - Dorsalgia, unspecified (ICD-10) Anemia ?D64.9 - Anemia, unspecified (ICD-10) Depression ?F32.A - Depression, unspecified (ICD-10) COVID-19 ?U07.1 - COVID-19 (ICD-10) Head injury ?S09.90XA - Unspecified injury of head, initial encounter (ICD-10) Migraine ?G43.909 - Migraine, unspecified, not intractable, without status migrainosus (ICD-10) Heartburn ?R12 - Heartburn (ICD-10) Diarrhea ?R19.7 - Diarrhea, unspecified (ICD-10) Elevated blood pressure reading without diagnosis of hypertension ?R03.0 - Elevated blood-pressure reading, without diagnosis of hypertension (ICD-10) Pilonidal abscess ?L05.01 - Pilonidal cyst with abscess (ICD-10) Pelvic pain ?R10.2 - Pelvic and perineal pain (ICD-10) Uterine leiomyoma ?D25.9 - Leiomyoma of uterus, unspecified (ICD-10) Thickened endometrium ?R93.89 - Abnormal findings on diagnostic imaging of other specified body structures (ICD-10) Surgical History H/O oral surgery ?Z98.890 - Other specified postprocedural states (ICD-10) History of cholecystectomy ?Z90.49 - Acquired absence of other specified parts of digestive tract (ICD- 10) History of section ?Z98.891 - History of uterine scar from previous surgery (ICD-10) History of surgical removal of pilonidal cyst ?Z98.890 - Other specified postprocedural states (ICD-10) Family History Father Family history of cancer Grandfather Family history of cancer Grandmother Family history of diabetes mellitus Other Bladder cancer Family history of lung cancer Social History Within the past year, how often did you have a drink containing alcohol: monthly or less Smoking status: Former smoker Second hand tobacco smoke exposure: Yes Non-prescribed substance use: denies use Previous occupational history: [employer] Highest level of school completed/degree received: high school graduate Exam Narrative Exam Narrative: Patient is afebrile and nondistressed. Vital signs are stable and are as documented. Pupils are equal and reactive. EOMs are full. There is no facial asymmetry. Nares and oropharynx are clear. No skin rashes noted on the left side of the face. Patient has small area of redness on the floor of the left ear canal and she is exquisitely tender to examination of the left ear canal with the speculum. Any manipulation of the left auricle is also painful for her. I do not feel any enlarged surrounding lymph nodes. There is no surrounding skin rash and no clusters of papules or vesicles to suggest shingle s. Neck is supple. Lung sounds are clear to auscultation bilaterally with good air entry. Heart has regular rate and rhythm. S1 and S2 normal abdomen soft, protuberant and nontender. She moves all extremities actively. She does not have any focal or lateralizing neurologic deficit. Constitutional Vital Signs, click to edit/add: Last Vital Signs Temp 97.8 F 07/29/24 22:04 Pulse 70 07/29/24 22:04 Resp 18 07/29/24 22:04 BP 115/81 07/29/24 22:04 Pulse Ox 97 07/29/24 22:04 O2 Del Method Room Air 07/29/24 20:13 Course Vital Signs Vital signs: Vital Signs Temperature 98.8 F 07/29/24 20:13 Pulse Rate 83 07/29/24 20:13 Respiratory Rate 16 07/29/24 20:13 Blood Pressure 130/85 07/29/24 20:13 Pulse Oximetry 98 07/29/24 20:13 Oxygen Delivery Method Room Air 07/29/24 20:13 Temperature 97.8 F 07/29/24 22:04 Pulse Rate 70 07/29/24 22:04 Respiratory Rate 18 07/29/24 22:04 Blood Pressure 115/81 07/29/24 22:04 Pulse Oximetry 97 07/29/24 22:04 Oxygen Delivery Method Room Air 07/29/24 20:13 Medical Decision Making MDM Narrative Medical decision making narrative: Patient presents with left-sided ear pain extending onto the face for the last few days. Examination is consistent with otitis externa with no evidence of surrounding shingles. CT scan of the brain and face are negative. Patient is placed on oral doxycycline, ibuprofen and topical Cortisporin eardrops. Follow- up as advised with PCP of choice before the end of the week and I have instructed her to return to the ED for any worsening symptoms. Differential Diagnosis Differential Diagnosis: Gutierrez's palsy, herpes zoster. Lab Data Labs: Lab Results 07/29/24 Range/Units 20:20 WBC 8.3 (4.0-11.0) 10^3/uL RBC 4.62 (4.20-5.40) 10^6/uL Hgb 13.1 (12.0-16.0) g/dL Hct 39.9 (36.0-48.0) % MCV 86.4 (81.0-99.0) fL MCH 28.4 (26.7-34.0) pg MCHC 32.8 (29.9-35.2) g/dL RDW 13.8 (11.0-15.0) % Plt Count 363 (150-450) 10^3/uL MPV 9.6 (9.5-13.5) fL Neut % (Auto) 62.3 (43.0-75.0) % Lymph % (Auto) 25.5 (20.5-60.0) % Swain % (Auto) 8.1 (1.7-12.0) % Eos % (Auto) 2.9 (0.9-7.0) % Baso % (Auto) 1.0 (0.2-2.0) % Neut # (Auto) 5.2 (1.4-6.5) 10^3/uL Lymph # (Auto) 2.1 (1.2-3.8) 10^3/uL Swain # (Auto) 0.7 (0.3-0.8) 10^3/uL Eos # (Auto) 0.2 (0.0-0.7) 10^3/uL Baso # (Auto) 0.1 (0.0-0.1) 10^3/uL Abs Immat Gran (auto) 0.02 (0.00-0.03) 10^3/uL Imm/Tot Granulo (auto) 0.2 (0.0-0.5) % Sodium 138 (136-145) mmol/L Potassium 3.7 (3.5-5.1) mmol/L Chloride 104 (98-107) mmol/L Carbon Dioxide 29.6 (21.0-32.0) mmol/L Anion Gap 8.1 BUN 29.0 H (7.0-18.0) mg/dL Creatinine 0.95 (0.55-1.02) mg/dL Est GFR ( Amer) >60 (>=60 mL/min/1.73m^2) Est GFR (Non-Af Amer) >60 (>=60 mL/min/1.73m^2) BUN/Creatinine Ratio 30.5 Glucose 120 H (74-106) mg/dL Calcium 10.2 H (8.5-10.1) mg/dL Total Bilirubin 0.4 (0.2-1.0) mg/dL AST 12 L (15-37) U/L ALT 8 L (14-59) U/L Alkaline Phosphatase 79 (46-116) U/L Total Protein 7.6 (6.4-8.2) g/dL Albumin 4.0 (3.4-5.0) g/dL Globulin 3.6 g/dL Albumin/Globulin Ratio 1.1 Discharge Plan Discharge Chief Complaint: Neuro Symptoms/Deficit Clinical Impression: Otitis externa Qualifiers: Otitis externa type: unspecified type Chronicity: acute Laterality: left Qualified Code(s): H60.502 - Unspecified acute noninfective otitis externa, left ear Patient Disposition: Home, Self-Care Time of Disposition Decision: 21:56 Condition: Good Mode of Transportation: Private Vehicle Prescriptions / Home Meds: New ibuprofen 600 mg tablet 600 mg PO TID PRN (Reason: pain) Qty: 15 0RF Cortisporin-TC 3.3-3-10-0.5 mg/mL drops,suspension 4 drp otic (ear) TID Qty: 10 0RF doxycycline hyclate 100 mg capsule 100 mg PO BID 10 Days Qty: 20 0RF Print Language: Ethiopian Instructions: Swimmer's [facility] (ED) Additional Instructions: Follow-up with physician of choice in the next 3 days. Return anytime for worsening symptoms. Referrals: Physician,Non-Staff, MD [Primary Care Provider] - 1 week
--- NOTE | 2024-07-29 20:22 | CT_ITS ---
The [address] [address] Patient Name: KONSTANTIN ROBLES MRN: [id number] date: 1975 Sex: F Assigned Patient Location: ER Current Patient Location: Accession/Order Number: [id number] Exam Date: 07/29/2024 20:36 Report Date: 07/29/2024 21:28 At the request of: BLANE SIMMONS Procedure: CT head/brain wo con EXAMINATION: CT head/brain wo con, CT facial bones wo con HISTORY: left facial numbness COMPARISON: None. TECHNIQUE: CT head without intravenous contrast. CT facial bones without intravenous contrast. Dose reduction techniques were achieved by using: automated exposure control and/or adjustment of mA and /or kV according to patient size and/or use of iterative reconstruction technique. FINDINGS: Head CT: The ventricles and sulci are within normal limits in size and configuration for age. There is no evidence for acute intracranial hemorrhage. There are no foci of abnormal parenchymal attenuation. There is no mass effect or midline shift. There are no abnormal extraaxial fluid collections. Facial CT: Negative for acute fracture or dislocation. The paranasal sinuses are clear. Globes are intact and the lenses are in place. No appreciable abnormal inflammation in the face on noncontrast exam. CT/CT head/brain wo con IMPRESSION: 1. Negative for acute intracranial hemorrhage or acute intracranial process. 2. Negative for acute fracture or dislocation in the facial bones. 3. No abnormal inflammation appreciated in the soft tissues of the face on noncontrast study. Electronically authenticated by: KORIN CALLAHAN Date: 07/29/2024 21:28
--- NOTE | 2024-07-29 20:32 | CT_ITS ---
The [address] [address] Patient Name: KONSTANTIN ROBLES MRN: [id number] date: 1975 Sex: F Assigned Patient Location: ER Current Patient Location: Accession/Order Number: [id number] Exam Date: 07/29/2024 20:36 Report Date: 07/29/2024 21:28 At the request of: BLANE SIMMONS Procedure: CT facial bones wo con EXAMINATION: CT head/brain wo con, CT facial bones wo con HISTORY: left facial numbness COMPARISON: None. TECHNIQUE: CT head without intravenous contrast. CT facial bones without intravenous contrast. Dose reduction techniques were achieved by using: automated exposure control and/or adjustment of mA and /or kV according to patient size and/or use of iterative reconstruction technique. FINDINGS: Head CT: The ventricles and sulci are within normal limits in size and configuration for age. There is no evidence for acute intracranial hemorrhage. There are no foci of abnormal parenchymal attenuation. There is no mass effect or midline shift. There are no abnormal extraaxial fluid collections. Facial CT: Negative for acute fracture or dislocation. The paranasal sinuses are clear. Globes are intact and the lenses are in place. No appreciable abnormal inflammation in the face on noncontrast exam. CT/CT facial bones wo con IMPRESSION: 1. Negative for acute intracranial hemorrhage or acute intracranial process. 2. Negative for acute fracture or dislocation in the facial bones. 3. No abnormal inflammation appreciated in the soft tissues of the face on noncontrast study. Electronically authenticated by: KORIN CALLAHAN Date: 07/29/2024 21:28
[2024-07-29 20:39] LABS: Basophils Absolute Auto 0.1 10^3/uL (0.0-0.1); Eosinophils Absolute Auto 0.2 10^3/uL (0.0-0.7); Eosinophils Percent Auto 2.9 % (0.9-7.0); Hematocrit 39.9 % (36.0-48.0); Hemoglobin 13.1 g/dL (12.0-16.0); Immature Granulocytes Abs Auto 0.02 10^3/uL (0.00-0.03); Immature Granulocytes Pct Auto 0.2 % (0.0-0.5); Lymphocytes Absolute Auto 2.1 10^3/uL (1.2-3.8); Lymphocytes Percent Auto 25.5 % (20.5-60.0); Mean Corpuscular HGB Conc 32.8 g/dL (29.9-35.2); Mean Corpuscular Hemoglobin 28.4 pg (26.7-34.0); Mean Corpuscular Volume 86.4 fL (81.0-99.0); Mean Platelet Volume 9.6 fL (9.5-13.5); Monocytes Absolute Auto 0.7 10^3/uL (0.3-0.8); Monocytes Percent Auto 8.1 % (1.7-12.0); Neutrophils Absolute Auto 5.2 10^3/uL (1.4-6.5); Neutrophils Percent Auto 62.3 % (43.0-75.0); Platelet Count 363 10^3/uL (150-450); Red Blood Count 4.62 10^6/uL (4.20-5.40); Red Cell Distribution Width 13.8 % (11.0-15.0); White Blood Count 8.3 10^3/uL (4.0-11.0)
[2024-07-29 20:55] LABS: Alanine Aminotransferase 8 U/L (14-59); Albumin Globulin Ratio 1.1; Alkaline Phosphatase 79 U/L (46-116); Anion Gap 8.1; Aspartate Amino Transferase 12 U/L (15-37); BUN Creatinine Ratio 30.5; Bilirubin Total 0.4 mg/dL (0.2-1.0); Calcium 10.2 mg/dL (8.5-10.1); Carbon Dioxide 29.6 mmol/L (21.0-32.0); Chloride 104 mmol/L (98-107); Estimated GFR (African America >60 (>=60 mL/min/1.73m^2); Estimated GFR (Non-African Ame >60 (>=60 mL/min/1.73m^2); Globulin 3.6 g/dL; Glucose 120 mg/dL (74-106); Potassium 3.7 mmol/L (3.5-5.1); Sodium 138 mmol/L (136-145); Total Protein 7.6 g/dL (6.4-8.2)
[2024-07-29 21:18] VITALS: BP 114/65; PULSE 76; O2SAT 97
--- NOTE | 2024-07-29 21:26 | PC.NURSE ---
this patient complains of a headache to her forehead onset 6 days ago, then noticed left ear pain. then today left side numbness and her said she could not close her left eye. but now only complaint is being tired
[2024-07-29 22:04] VITALS: BP 115/81; PULSE 70; TEMP 36.6; O2SAT 97
--- NOTE | 2024-07-29 22:13 | PC.NURSE ---
i gave this patient verbal and written discharge orders along with 3 e-scripts and this patient voices yes to understanding these. at time of discharge this patient voices no concerns and shows no signs of distress
== END 2024-07-29 22:15 | disposition home or self-care (01) ==
PROVIDERS: Emergency Provider Emergency Medicine
DX: H60.502 Unspecified acute noninfective otitis externa, left ear (principal); Z90.49 Acquired absence of other specified parts of digestive tract; Z87.891 Personal history of nicotine dependence; R20.0 Anesthesia of skin
CPT/HCPCS: 36415; 70450; 70486; 80053; 85025; 99284

== ENCOUNTER 2024-08-28 15:32 | Outpatient (OUT) | payer OTHER, SELFPAY ==
--- OUTSIDE RECORDS SUMMARY | 2024-08-28 15:38 | XMS_ITS | CCD ---
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 Name Role Phone SOPHIE, DR CHOWDHURY Admitting [...] Unavaila ble SOPHIE, DR CHOWDHURY Consulting Unavailable PRAFULEBER, DR ERON Diana Consulting Unavailable ALEKSANDAR, DR [...] NO FAMILY, PHYSICIAN Primary Care Provider Unava ilDOT Thorpe Attending Provider MD Marko Portillo II Attending Provider Marko Portillo II Unavailable NO FAMILY, PHYSICIAN Primary Care Provider Unava ilable Luciana Thapa Attending Provider NO FAMILY, PHYSICIAN Primary Care Provider Unava ilable Jalyn Barboza APRN Emergency Provider Ezequiel Apple DO Unavailable EZEQUIEL APPLE Attending Unavailable UNALLOCATED, NOMS PROVIDER Referring Unava ilable LUCIANA THAPA Attending Unavailable IRENE REID Attending Unavailable IRENE REID Attending Unavailable NO FAMILY, PHYSICIAN Primary Care Unavailable Jalyn Barboza Attending Unavailable Jalyn Barboza Admitting Unavailable Luciana Thapa Admitting Unavailable NO FAMILY, PHYSICIAN Primary Care Unavailable Luciana Thapa Attending Unavailable No Pcp, No Pcp Primary Care Provider Unavailabl e Allergies Allergy Classification Reported Allergen(s) Allergy Type Date of Onset Reaction(s) Facility (3 sources) Ciprofloxacin Drug Allergy 8 hives and itching [facility] Repository (3 sources) Vancomycin Drug Allergy 8 hives and itching [facility] Repository (10 sources) Ciprofloxacin Drug Allergy 3 Rash [facility] (10 sources) Vancomycin Drug Allergy 3 Rash [facility] Other (1 source) Ciprofloxacin Drug Allergy 5 [facility] Repository (1 source) Vancomycin Drug Allergy [address] [place] [address] Repository Medications Current Medications Medication Drug Class(es) Dates Sig (Normalized) Sig (Original) [id number] 200 actuat albuterol 0.09 mg/actuat metered dose [...] oral tablet (1 source) alpha-Adrenergic Agonist, Uncompetitive Z-gyeghm-G-aspartat e Receptor Antagonist, Sigma-1 Agonist Start: 05-11-2021 Capmist DM 60-15-400 MG 1 tablet at 4 hour intervals as needed Orally Four times a day for 10 day(s) May, Active dextromethorphan hydrobromide 1.5 mg/ml / pyrilamine maleate 1.5 mg/ml oral solution (2 sources) Uncompetitive J-zjvayc-G-aspartat e Receptor Antagonist, Sigma-1 Agonist Start: 05-06-2021 take 20 mL by mouth every eight hours [place] DM 7.5-7.5 MG/5ML 20 mL Orally every 8 hours for 5 days May, Active doxycycline hyclate 100 mg oral capsule (2 sources) Tetracycline-class Drug Start: 07-30-2024 take 1 capsule by mouth in the morning doxycycline (Vibramycin) 100 MG capsule Take 100 mg by mouth in the morning and 100 mg before bedtime. 07/30/2024 Active ferrous sulfate 325 mg oral tablet [...] a day for 14 day(s) May, Active hydrocortisone 10 mg/ml / neomycin 3.5 mg/ml / polymyxin b [id number] unt/ml otic suspension (2 sources) Aminoglycoside Antibacterial, Polymyxin-class Antibacterial, Corticosteroid Start: 07-30-2024 neomycin-polymyxi n-hydrocortisone (Cortisporin) 3.5-45025-[address] 4 DROPS INTO AFFECTED EAR(S) 3 TIMES A DAY 07/30/2024 Active ibuprofen 800 mg oral tablet (4 [...] Orally for 6 days Jul, Active predniSONE 10 mg oral tablet (3 sources) Start: 08-05-2024 predniSONE (Deltasone) 10 MG tablet Indications: Gutierrez's palsy 6 po for 2 days 5 po for 2 days, 4 po for 2 days, 3 po for 2 days, 1 po for 2 day 1/2 po for 2 days 87 tablet 08/05/2024 Active Start: 05-11-2021 take 1 tablet by davon th every twelve hours predniSONE 20 MG 1 tablet Orally bid for 5 day(s) May, Active Tylenol Arthritis Pain (3 sources) Tylenol Arthriti s Pain Active valACYclovir 500 mg oral tablet (2 sources) Herpesvirus Nucleoside Analog DNA Polymerase Inhibitor, Herpes Simplex Virus Nucleoside Analog DNA Polymerase Inhibitor, Herpes Zoster Virus Nucleoside Analog DNA Polymerase Inhibitor Start: End: take 1 tablet by mouth in the morning valACYclovir (Valtrex) 500 MG tablet Indications: Gutierrez's palsy Take 1 tablet (500 mg) by mouth in the morning and 1 tablet (500 mg) before bedtime. 20 tablet 08/05/2024 08/05/2025 Active Completed/Discontinued Medications Medication Drug Class(es) Dates Sig (Normalized) Sig (Original) triamcinolone acetonide 40 mg/ml injectable suspension (1 source) Corticosteroid Start: 04-19-2022 Kenalog-40 Apr, 120 mg Problems Active Problems Problem Classification Problem Date Documented Da te Episodic/Chronic Headache; including migraine (2 sources) Pain in face; Translations: [Facial pain] 08-05-2024 Episodic Menstrual disorders (5 sources) Excessive and frequent menstruation with regular cycle; Translations: [EXCESS FREQ MENSTRUATION W/REG CYCL] Onset: 08-19-2020 Chronic Other connective tissue disease (1 source) Weakness of face muscles; Translations: [Facial weakness] 07-31-2024 Episodic Other connective tissue disease (1 source) Facial weakness; Translations: [Facial weakness] Onset: 07-31-2024 Episodic Other eye disorders (2 sources) Dry eyes; Translations: [Dry eye syndrome of unspecified lacrimal gland] 08-05-2024 Episodic Other nervous system disorders (4 sources) Gutierrez's palsy; 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 Other nervous system disorders (4 sources) Cranial nerve disorder; 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, unspecified] 08-05-2024 Episodic Other nervous system disorders (2 sources) Trigeminal neuralgia; Translations: [Trigeminal neuralgia] 08-05-2024 Episodic Other non-traumatic joint disorders (3 sources) Pain [...] Test Name Value Interpretation Reference Range Facility Alanine aminotransferase [En zymatic activity/volume] in Serum or PlasmaOrdered By: Jalyn Barboza on 07-31-2024 ALT [Catalytic activity/Vol] Alanine aminotransferase [Enzymatic activity/volume] in Serum or Plasma 7-52 [facility] Albumin [Mass/volume] in Ser um or Plasma by Bromocresol green (BCG) dye binding methoOrdered By: Jalyn Barboza on 07-31-2024 Albumin BCG dye [Mass/Vol] Albumin [Mass/volume] in Serum or Plasma by Bromocresol green (BCG) dye binding metho 3.5-5.7 [facility] Alkaline phosphatase [Enzyma tic activity/volume] in Serum or PlasmaOrdered By: Jalyn Barboza on 07-31-2024 ALP [Catalytic activity/Vol] Alkaline phosphatase [Enzymatic activity/volume] in Serum or Plasma 34-104 [facility] Aspartate aminotransferase [ Enzymatic activity/volume] in Serum or PlasmaOrdered By: Jalyn Barboza on 07-31-2024 AST [Catalytic activity/Vol] Aspartate aminotransferase [Enzymatic activity/volume] in Serum or Plasma 13-39 [facility] Basophils Auto (Bld) [#/Vol] Ordered By: Jalyn Barboza on 07-31-2024 Basophils (Bld) [#/Vol] Automated basophil count 0.0-0.2 [facility] Basophils/100 WBC Auto (Bld) Ordered By: Jalyn Barboza on 07-31-2024 Basophils/100 WBC (Bld) Automated basophil % . [facility] Bilirubin.total [Mass/volume ] in Serum or PlasmaOrdered By: Jalyn Barboza on 07-31-2024 Bilirubin [Mass/Vol] Bilirubin.total [Mass/volume] in Serum or Plasma 0.3-1.0 [facility] Calcium [Mass/volume] in Ser um or PlasmaOrdered By: Jalyn Barboza on 07-31-2024 Calcium [Mass/Vol] Calcium [Mass/volume ] in Serum or Plasma 8.6-10.3 [facility] Carbon dioxide, total [Moles /volume] in Serum or PlasmaOrdered By: Jalyn Barboza on 07-31-2024 CO2 [Moles/Vol] Carbon dioxide, tota l [Moles/volume] in Serum or Plasma 21.0-31.0 [facility] Chloride [Moles/volume] in S tana or PlasmaOrdered By: Jalyn Barboza on 07-31-2024 Chloride [Moles/Vol] Chloride [Moles/vol ume] in Serum or Plasma 98-107 [facility] Complete Blood Count Auto Di ffon 07-31-2024 Basophils (Bld) [#/Vol] 0.0 10*3/uL Normal 0.0-0.2 [facility] Comment on above: Result Comment: PERF ORMED BY: [place] [address] PATHOLOGIST [employer] MAN KATHERIN ZAVALA M.D. Performed By: #### C MP, PTT, CK, HS TROP, CBC, PT #### [address] Basophils/100 WBC (Bld) 0.8 % Normal . [facility] Comment on above: Performed By: #### C MP, PTT, CK, HS TROP, CBC, PT #### [address] Eosinophils (Bld) [#/Vol] 0.3 10*3/uL Normal 0.0-0.45 [facility] Comment on above: Performed By: #### C MP, PTT, CK, HS TROP, CBC, PT #### [address] Eosinophils/100 WBC (Bld) 4.4 % Normal . [facility] Comment on above: Performed By: #### C MP, PTT, CK, HS TROP, CBC, PT #### [address] Erythrocyte distribution width (RBC) [Ratio] 15.0 % Normal 11.9-15.3 [facility] Comment on above: Performed By: #### C MP, PTT, CK, HS TROP, CBC, PT #### [address] Hematocrit (Bld) [Volume fraction] 39.6 % Normal 34.0-46.4 [facility] Comment on above: Performed By: #### C MP, PTT, CK, HS TROP, CBC, PT #### [address] Hemoglobin (Bld) [Mass/Vol] 13.2 g/dL Normal 11.8-15.4 [facility] Comment on above: Performed By: #### C MP, PTT, CK, HS TROP, CBC, PT #### [address] Lymphocytes (Bld) [#/Vol] 1.8 10*3/uL Normal 1.00-4.8 [facility] Comment on above: Performed By: #### C MP, PTT, CK, HS TROP, CBC, PT #### [address] Lymphocytes/100 WBC (Bld) 29.2 % Normal . [facility] Comment on above: Performed By: #### C MP, PTT, CK, HS TROP, CBC, PT #### [address] MCH (RBC) [Entitic mass] 28.4 pg Normal 24.7-34.3 [facility] Comment on above: Performed By: #### C MP, PTT, CK, HS TROP, CBC, PT #### [address] MCV (RBC) [Entitic vol] 84.9 fL Normal 80-100 [facility] Comment on above: Performed By: #### C MP, PTT, CK, HS TROP, CBC, PT #### [address] [place] [address] [place] Mean Corpuscular HGB Conc 33.4 g/dL Normal 32.0-35.0 [facility] Comment on above: Performed By: #### C MP, PTT, CK, HS TROP, CBC, PT #### [address] Monocytes (Bld) [#/Vol] 0.4 10*3/uL Normal 0.0-0.8 [facility] Comment on above: Performed By: #### C MP, PTT, CK, HS TROP, CBC, PT #### [address] Monocytes/100 WBC (Bld) 20.28 % High 0.00-20.00 [facility] Comment on above: Result Comment: For adults in ED, MDW > 20.0 may be associated with a higher risk of sepsis during the first 12 hrs of hospital admission Performed By: #### C MP, PTT, CK, HS TROP, CBC, PT #### [address] Monocytes/100 WBC (Bld) 6.9 % Normal . [facility] Comment on above: Performed By: #### C MP, PTT, CK, HS TROP, CBC, PT #### [address] Neutrophils (Bld) [#/Vol] 3.7 10*3/uL Normal 1.8-7.7 [facility] Comment on above: Performed By: #### C MP, PTT, CK, HS TROP, CBC, PT #### [address] Neutrophils/100 WBC (Bld) 58.7 % Normal . [facility] Comment on above: Performed By: #### C MP, PTT, CK, HS TROP, CBC, PT #### [address] NRBC% 0.1 /100{WBC} Normal 0-0.5 [facility] Comment on above: Performed By: #### C MP, PTT, CK, HS TROP, CBC, PT #### [facility] [address] Platelet mean volume (Bld) [Entitic vol] 7.7 fL Normal 6.3-10.7 [facility] Comment on above: Performed By: #### C MP, PTT, CK, HS TROP, CBC, PT #### [address] Platelets (Bld) [#/Vol] 364 10*3/uL Normal 150-450 [facility] Comment on above: Performed By: #### C MP, PTT, CK, HS TROP, CBC, PT #### [address] RBC (Bld) [#/Vol] 4.66 10*6/uL Normal 3.60-5.00 [facility] Comment on above: Performed By: #### C MP, PTT, CK, HS TROP, CBC, PT #### [address] WBC (Bld) [#/Vol] 6.3 10*3/uL Normal 3.8-11.6 [facility] Comment on above: Performed By: #### C MP, PTT, CK, HS TROP, CBC, PT #### [address] Comprehensive Metabolic Pane bhupinder 07-31-2024 Albumin [Mass/Vol] 4.2 g/dL Normal 3.5-5.7 [facility] Comment on above: Performed By: #### C MP, PTT, CK, HS TROP, CBC, PT #### [address] Albumin/Globulin [Mass ratio] 1.3 {ratio} Normal [facility] Comment on above: Performed By: #### C MP, PTT, CK, HS TROP, CBC, PT #### [address] ALP [Catalytic activity/Vol] 64 U/L Normal 34-104 [facility] Comment on above: Performed By: #### C MP, PTT, CK, HS TROP, CBC, PT #### [address] ALT [Catalytic activity/Vol] 16 U/L Normal 7-52 [facility] Comment on above: Performed By: #### C MP, PTT, CK, HS TROP, CBC, PT #### [address] Anion gap [Moles/Vol] 9.4 mmol/L Normal 6.0-15.0 [facility] Comment on above: Performed By: #### C MP, PTT, CK, HS TROP, CBC, PT #### [address] AST [Catalytic activity/Vol] 17 U/L Normal 13-39 [facility] Comment on above: Performed By: #### C MP, PTT, CK, HS TROP, CBC, PT #### [address] Bilirubin [Mass/Vol] 0.6 mg/dL Normal 0.3-1.0 [facility] Comment on above: Performed By: #### C MP, PTT, CK, HS TROP, CBC, PT #### [address] Calcium [Mass/Vol] 9.8 mg/dL Normal 8.6-10.3 [facility] Comment on above: Performed By: #### C MP, PTT, CK, HS TROP, CBC, PT #### [address] Chloride [Moles/Vol] 107 mmol/L Normal 98-107 [facility] Comment on above: Performed By: #### C MP, PTT, CK, HS TROP, CBC, PT #### [address] CO2 [Moles/Vol] 25.7 mmol/L Normal 21.0-31.0 [facility] Comment on above: Performed By: #### C MP, PTT, CK, HS TROP, CBC, PT #### [address] Creatinine [Mass/Vol] 0.64 mg/dL Normal 0.60-1.20 [facility] Comment on above: Performed By: #### C MP, PTT, CK, HS TROP, CBC, PT #### [address] Creatinine Clr Calc Pharmacy 140.03 Normal [facility] Comment on above: Result Comment: PERF ORMED BY: [place] [address] PATHOLOGIST [employer] MAN KATHERIN ZAVALA M.D. Performed By: #### C MP, PTT, CK, HS TROP, CBC, PT #### [address] GFR/1.73 sq M.predicted MDRD (S/P/Bld) [Vol rate/Area] mL/min/{1.73_m2} Normal [facility] Comment on above: Performed By: #### C MP, PTT, CK, HS TROP, CBC, PT #### [address] Globulin (S) [Mass/Vol] 3.3 g/dL Normal [facility] Comment on above: Performed By: #### C MP, PTT, CK, HS TROP, CBC, PT #### [address] Glucose [Mass/Vol] 108 mg/dL High 70-100 [facility] Comment on above: Result Comment: [facility] Glucose Reference Range is dependent on time and content of last meal. Glucose of more than 200 mg/dL in a nonstressed, ambulatory subject supports the diagnosis of Diabetes Mellitus. ADA recommended reference range Performed By: #### C MP, PTT, CK, HS TROP, CBC, PT #### [address] Potassium [Moles/Vol] 4.1 mmol/L Normal 3.5-5.1 [facility] Comment on above: Performed By: #### C MP, PTT, CK, HS TROP, CBC, PT #### [facility] [address] Protein [Mass/Vol] 7.5 g/dL Normal 6.4-8.9 [facility] Comment on above: Performed By: #### C MP, PTT, CK, HS TROP, CBC, PT #### [facility] [address] Sodium [Moles/Vol] 138 mmol/L Normal 136-145 [facility] Comment on above: Performed By: #### C MP, PTT, CK, HS TROP, CBC, PT #### [address] Urea nitrogen [Mass/Vol] 17 mg/dL Normal 7-25 [facility] Comment on above: Performed By: #### C MP, PTT, CK, HS TROP, CBC, PT #### [address] Creatine Kinaseon 07-31-2024 CK [Catalytic activity/Vol] 65 U/L Normal 30-223 [facility] Comment on above: Performed By: #### C MP, PTT, CK, HS TROP, CBC, PT #### [address] Creatine kinase [Enzymatic a ctivity/volume] in Serum or PlasmaOrdered By: Jalyn Barboza on 07-31-2024 CK [Catalytic activity/Vol] Creatine kinase [Enzymatic activity/volume] in Serum or Plasma 30- [facility] Creatinine [Mass/volume] in Serum or PlasmaOrdered By: Jalyn Navarrob on 07-31-2024 Creatinine [Mass/Vol] Creatinine [Mass/v olume] in Serum or Plasma 0.60-1.20 [facility] ECG 12 lead ECGon 07-31-2024 ECG 12 lead ECG [facility] [place] [address] Electrocardiograph Report Signed Patient: Romelia Bartlett MR#: [id number] 978 : 1975 Acct:[id number] Age/Sex: 48 / F ADM Date: 07/31/24 Loc: ER Room: Type: [facility] ER Attending Dr: Ordering Provider: Jalyn Barboza APRN Date of Service: 07/31/24 ECG/ECG 12 lead ECG: Neuro Symptoms/Deficit Copies to: Test Reason : Blood Pressure : 143/72 mmHG Vent. Rate : 73 BPM Atrial Rate : 73 BPM P-R Int : 178 ms QRS Dur : 92 ms QT Int : 392 ms P-R-T Axes : 44 66 58 degrees QTcB Int : 431 ms Normal sinus rhythm Low voltage QRS Borderline ECG No previous ECGs available Confirmed by KORIN MEADE DO ([id number]) on 07/31/2024 7:59:25 PM Referred By: Electronically Signed By: KORIN MEADE DO Transcribed By: MUS Signed By Korin Meade DO 07/31 Normal [facility] Eosinophils Auto (Bld) [#/Vo l]Ordered By: Jalyn Barboza on 07-31-2024 Eosinophils (Bld) [#/Vol] Automated eosinophil count 0.0-0.45 [facility] Eosinophils/100 WBC Auto (Bl d)Ordered By: Jalyn Barboza on 07-31-2024 Eosinophils/100 WBC (Bld) Automated eosinophil % . [facility] Erythrocyte distribution wid th Auto (RBC) [Ratio]Ordered By: Jalyn Barboza on 07-31-2024 Erythrocyte distribution width (RBC) [Ratio] Erythrocyte distribution width [Ratio] by Automated count 11.9-15.3 [facility] Globulin Calc (S) [Mass/Vol] Ordered By: Jalyn Barboza on 07-31-2024 Globulin (S) [Mass/Vol] Serum globulin measurement by calculation (mass/volume) [facility] Glucose [Mass/volume] in Ser um or PlasmaOrdered By: Jalyn Barboza on 07-31-2024 Glucose [Mass/Vol] Glucose [Mass/volume ] in Serum or Plasma High 70-100 [facility] Comment on above: ADA recommended refe rence rangeRandom Glucose Reference Range is dependent on time and content of last meal. Glucose of more than 200 mg/dL in a nonstressed, ambulatory subject supports the diagnosis of Diabetes Mellitus. Hematocrit Auto (Bld) [Volum e fraction]Ordered By: Jalyn Barboza on 07-31-2024 Hematocrit (Bld) [Volume fraction] Hematocrit [Volume Fraction] of Blood by Automated count 34.0-46.4 [facility] Hemoglobin [Mass/volume] in BloodOrdered By: Jalyn Barboza on 07-31-2024 Hemoglobin (Bld) [Mass/Vol] Hemoglobin [Mass/volume] in Blood 11.8-15.4 [facility] INR in Platelet poor plasma by Coagulation assayOrdered By: Jalyn Barboza on 07-31-2024 INR Coag (PPP) [Relative time] INR in Platelet poor plasma by Coagulation assay [facility] Comment on above: INR Therapeutic Rang e A) Pre- and Peroperative OAT started two weeks before surgery. NOT HIP SURGERY: 1.5 - 2.5 HIP SURGERY: 2 - 3B) Primary and secondary prevention of venous THROMBOSIS: 2 - 3C) Active venous thrombosis, pulmonary embolismand prevention of recurrent venous thrombosis: 2 - 3D) Prevention of arterial thromboembolismincluding patients with mechanical heart valves: 3 - 4.5 Leukocytes [#/volume] correc pacheco for nucleated erythrocytes in Blood by Automated counOrdered By: Jalyn Barboza on 07-31-2024 WBC corrected for nucl RBC Auto (Bld) [#/Vol] Leukocytes [#/volume] corrected for nucleated erythrocytes in Blood by Automated coun 3.8-11.6 [facility] Lymphocytes Auto (Bld) [#/Vo l]Ordered By: Jalyn Barboza on 07-31-2024 Lymphocytes (Bld) [#/Vol] Lymphocytes [#/volume] in Blood by Automated count 1.00-4.8 [facility] Lymphocytes/100 WBC Auto (Bl d)Ordered By: Jalyn Barboza on 07-31-2024 Lymphocytes/100 WBC (Bld) Lymphocytes/100 leukocytes in Blood by Automated count . [facility] MCH Auto (RBC) [Entitic mass ]Ordered By: Jalyn Barboza on 07-31-2024 MCH (RBC) [Entitic mass] MCH [Entitic mass] by Automated count 24.7-34.3 [facility] MCHC Auto (RBC) [Mass/Vol]Or dered By: Jalyn Barboza on 07-31-2024 MCHC (RBC) [Mass/Vol] MCHC [Mass/volume] by Automated count 32.0-35.0 [facility] MCV Auto (RBC) [Entitic vol] Ordered By: Jalyn Barboza on 07-31-2024 MCV (RBC) [Entitic vol] MCV [Entitic volume] by Automated count 80-100 [facility] Monocyte distribution width [Entitic volume] in Blood by AutomatedOrdered By: Jalyn Barboza on 07-31-2024 Monocyte distribution width Auto (Bld) [Entitic vol] Monocyte distribution width [Entitic volume] in Blood by Automated High 0.00-20.00 [facility] Comment on above: For adults in ED, MD W > 20.0 may be associated with a higher risk of sepsis during the first 12 hrs of hospital admission Monocytes Auto (Bld) [#/Vol] Ordered By: Jalyn Barboza on 07-31-2024 Monocytes (Bld) [#/Vol] Automated blood monocyte count 0.0-0.8 [facility] Monocytes/100 WBC Auto (Bld) Ordered By: Jalyn Barboza on 07-31-2024 Monocytes/100 WBC (Bld) Automated monocyte % . [facility] Neutrophils Auto (Bld) [#/Vo l]Ordered By: Jalyn Barboza on 07-31-2024 Neutrophils (Bld) [#/Vol] Neutrophils [#/volume] in Blood by Automated count 1.8-7.7 [facility] Neutrophils/100 WBC Auto (Bl d)Ordered By: Jalyn Barboza on 07-31-2024 Neutrophils/100 WBC (Bld) Automated neutrophil % . [facility] No Panel InformationOrdered By: Jalyn Barboza on 07-31-2024 Estimated GFR (CKD-EPI) > 60.0 mL/Min [facility] Creatinine Clearance (Chem 140.03 [facility] Nucleated erythrocytes [Pres ence] in Blood by Automated countOrdered By: Jalyn Barboza on 07-31-2024 Nucleated RBC Auto Ql (Bld) Nucleated erythrocytes [Presence] in Blood by Automated count 0-0.5 [facility] Partial Thromboplastin Timeo n 07-31-2024 aPTT Coag (Bld) [Time] 28.9 s Normal 25.1-36.5 [facility] Comment on above: Result Comment: A he matocrit value greater than 55% may lead to inaccurate results in coagulation testing. Patients having hematocrit values >55% require a special collection tube for coagulation studies. Please contact the laboratory at [phone] for redraw instructions. PERFORMED BY: [facility] [address] [place] [id number] PATHOLOGIST [employer] MAN KATHERIN ZAVALA M.D. Performed By: #### C MP, PTT, CK, HS TROP, CBC, PT #### [facility] [address] [place] [id number] [facility] Platelet mean volume Auto (B ld) [Entitic vol]Ordered By: Jalyn Barboza on 07-31-2024 Platelet mean volume (Bld) [Entitic vol] Platelet mean volume [Entitic volume] in Blood by Automated count 6.3-10.7 [facility] Platelets Auto (Bld) [#/Vol] Ordered By: Jalyn Barboza on 07-31-2024 Platelets (Bld) [#/Vol] Platelets [#/volume] in Blood by Automated count 150-450 [facility] Potassium [Moles/volume] in Serum or PlasmaOrdered By: Jalyn Barboza on 07-31-2024 Potassium [Moles/Vol] Potassium [Moles/v olume] in Serum or Plasma 3.5-5.1 [facility] Protein [Mass/volume] in Ser um or PlasmaOrdered By: Jalyn Barboza on 07-31-2024 Protein [Mass/Vol] Protein [Mass/volume ] in Serum or Plasma 6.4-8.9 [facility] [facility] Pro[facility]rombin Time INRon 07-31 INR Coag (PPP) [Relative time] 1.0 {INR} Normal [facility] Comment on above: Result Comment: INR Therapeutic Range A) Pre- and Peroperative OAT started two weeks before surgery. NOT HIP SURGERY: 1.5 - 2.5 HIP SURGERY: 2 - 3 B) Primary and secondary prevention of venous THROMBOSIS: 2 - 3 C) Active venous thrombosis, pulmonary embolism and prevention of recurrent venous thrombosis: 2 - 3 D) Prevention of arterial thromboembolism including patients with mechanical heart valves: 3 - 4.5 Performed By: #### C MP, PTT, CK, HS TROP, CBC, PT #### [facility] [address] [place] [address] [place] PT Coag (PPP) [Time] 11.6 s Normal 9.0-12.9 [facility] Comment on above: Result Comment: A he matocrit value greater than 55% may lead to inaccurate results in coagulation testing. Patients having hematocrit values >55% require a special collection tube for coagulation studies. Please contact the laboratory at [phone] for redraw instructions. Performed By: #### C MP, PTT, CK, HS TROP, CBC, PT #### [facility] [address] [place] [address] [facility] Prothrombin time (PT)Ordered By: Jalyn Barboza on 07-31-2024 PT Coag (PPP) [Time] Prothrombin time (PT) 9.0- 12.9 [facility] Comment on above: A hematocrit value g reater than 55% may lead to inaccurate results in coagulation testing. Patients having hematocrit values >55% require a special collection tube for coagulation studies. Please contact the laboratory at [phone] for redraw instructions. RBC Auto (Bld) [#/Vol]Ordere d By: Jalyn Barboza on 07-31-2024 RBC (Bld) [#/Vol] Erythrocytes [#/volu me] in Blood by Automated count 3.60-5.00 [facility] Serum or plasma albumin/glob ulin mass ratioOrdered By: Jalyn Barboza on 07-31-2024 Albumin/Globulin [Mass ratio] Serum or plasma albumin/globulin mass ratio [facility] Serum or plasma anion gap de terminationOrdered By: Jalyn Barboza on 07-31-2024 Anion gap [Moles/Vol] Serum or plasma an ion gap determination 6.0-15.0 [facility] Sodium [Moles/volume] in Ser um or PlasmaOrdered By: Jalyn Barboza on 07-31-2024 Sodium [Moles/Vol] Sodium [Moles/volume ] in Serum or Plasma 136-145 [facility] Troponin I High Sensitivityo n 07-31-2024 Troponin I High Sensitivity <3 Normal 0-15 [facility] Comment on above: Result Comment: The Troponin units of report have been changed to meet the Chest Pain Accreditation requirement, element EC5.M1l2. Troponin units are changed from pg/ml to ng/L. Also, the decimal is removed and results are in whole numbers. PERFORMED BY: [facility] [address] [place] [address] PATHOLOGIST [employer] MAN KATHERIN ZAVALA M.D. Performed By: #### C MP, PTT, CK, HS TROP, CBC, PT #### [facility] [address] Troponin I.cardiac [Mass/vol ume] in Serum or Plasma by Detection limit <= 0.01 ng/Ordered By: Jalyn Barboza on 07-31-2024 Troponin I.cardiac DL <= 0.01 ng/mL [Mass/Vol] Troponin I.cardiac [Mass/volume] in Serum or Plasma by Detection limit <= 0.01 ng/ 0-15 [facility] Comment on above: The Troponin units o f report have been changed to meet the Chest Pain Accreditation requirement, element EC5.M1l2. Troponin units are changed from pg/ml to ng/L. Also, the decimal is removed and results are in whole numbers. Urea nitrogen [Mass/volume] in Serum or PlasmaOrdered By: Jalyn Barboza on 07-31-2024 Urea nitrogen [Mass/Vol] Urea nitrogen [Mass/volume] in Serum or Plasma 7-25 [facility] WBC Auto (Bld) [#/Vol]Ordere d By: Jalyn Barboza on 07-31-2024 WBC (Bld) [#/Vol] Leukocytes [#/volume ] in Blood by Automated count 3.8-11.6 [facility] aPTT in Platelet poor plasma by Coagulation assayOrdered By: Jalyn Barboza on 07-31-2024 aPTT Coag (PPP) [Time] Activated partial thromboplastin time (aPTT) in platelet poor plasma by coagulation a 25.1-36.5 [facility] Comment on above: A hematocrit value g reater than 55% may lead to inaccurate results in coagulation testing. Patients having hematocrit values >55% require a special collection tube for coagulation studies. Please contact the laboratory at [phone] for redraw instructions. Bhupinder 10-24-2023 L Specimen: [id number] Received: 10/24/23 Status: EDUAR Cooper Num: [id number] Spec Type: Surgical Subm Dr: Luciana Thapa Tissues: A Uterus w/ or w/o tubes ovaries except neoplastic or prolap (CERVIX, SHAHID FT Procedures: HE/12, Gross/Micro L5 Age/ Patient Sex Location Account Attending Physician Romelia Bartlett 47/F LABELL [id number] Luciana Thapa SPEC NUM: [id number] RECD: 10/24/23 STATUS: EDUAR COOPER NUM: [id number] KARYNA: 10/24/[address]: Luciana Thapa ENTERED: 10/24/[address]: Teresita,Lab SPEC TYPE: Surgical DEPT: MISTI [...] intact luminal centers lined by an mucosa. Plug Overwrap Machine Tender presentative sections submitted as follows: Specimen: [id number] Received: 10/24/23 Status: EDUAR Cooper Num: [id number] Spec Type: Surgical Subm Dr: Luciana Thapa Tissues: A Uterus w/ or w/o tubes ovaries except neoplastic or prolap (CERVIX, SHAHID FT Procedures: , Gross/Micro L5 Patient: Romelia Bartlett [id number] (Continued) Specimen: [id number] Received: 10/24/23 (Continued) Gross Description (Continued) Signed (signature on file) Katherin Zavala MD 10/25/23 1707 Specimen: Received: 10/24/23 Status: EDUAR Cooper Num: [id number] Spec Type: Surgical Subm Dr: Luciana Thapa Tissues: A Uterus w/ or w/o tubes ovaries except neoplastic or prolap (CERVIX, SHAHID FT Procedures: , Gross/Micro L5 Patient: Romelia Bartlett [id number] (Continued) Specimen: [id number] Received: 10/24/23 (Continued) Gross Description (Continued) A1-A2: Anterior cervix to include cystic areas A3-A4: Posterior cervix to include cystic areas A5: Anterior endomyometrium A6: Posterior endomyometrium A7-A9: Small white nodule A10: Fallopian tube # 1 A11: Fallopian tube #2 Clinical history: Menorrhagia, pelvic an, dyspareunia, dysmenorrhea CPT Codes 72683 UTERUS Specimen: [id number] Received: 10/24/23 Status: EDUAR Cooper Num: [id number] Spec Type: Surgical Subm Dr: Luciana Thapa Tissues: A Uterus w/ or w/o tubes ovaries except neoplastic or prolap (CERVIX, SHAHID FT Procedures: , Gross/Micro L5 Patient: Romelia Bartlett [id number] (Continued) Signed (more content not included)... Normal [facility] XR knee LT 4V*on 04-04-2022 XR knee LT 4V* [facility] [employer] Other XR knee LT 4V* [facility] [employer] Other XR knee LT 4V* [address] [facility] [employer] Other XR knee LT 4V* [place] [address] No rt [employer] Other XR knee LT 4V* XRay Report [employer] Other XR knee LT 4V* Signed [employer] Other XR knee LT 4V* Patient: Immanuel Bartlett MR#: [id number] [employer] Other XR knee LT 4V* 978 [employer] Other XR knee LT 4V* : 1975 Acct:[id number] [employer] Other XR knee LT 4V* Age/Sex: 46 / F ADM Date: 04/04/22 [employer] Other XR knee LT 4V* Loc: XDUCLY Room: Ty pe: REG CLI [employer] Other XR knee LT 4V* Attending Dr: Sis CHRIS [employer] Other XR knee LT 4V* Copies to: DOT Mackenzie [employer] Other XR knee LT 4V* Ordering Provider: DOT Cotton [employer] Other XR knee LT 4V* Date of Service: 04/04/22 [employer] Other XR knee LT 4V* XR/XR knee LT 4V*: Acute pain of left knee [employer] Other XR knee LT 4V* XR knee LT 4V* 2021 12:28 PM [employer] Other XR knee LT 4V* SIGNS AND SYMPTOMS: Left knee pain [employer] Other XR knee LT 4V* PROTOCOL: Frontal, lateral, and oblique radiographs of the left knee [employer] Other XR knee LT 4V* COMPARISON: None [facility] [employer] Other XR knee LT 4V* FINDINGS: [employer] Other XR knee LT 4V* There is mild narrow ing of the weightbearing and patellofemoral joint spaces. There is [employer] Other XR knee LT 4V* enthesophyte formati on at the poles of the patella. There is no joint effusion or soft tissue [employer] Other XR knee LT 4V* swelling. No fractur e or dislocation. [employer] Other XR knee LT 4V* X R/XR knee LT 4V* [employer] Other XR knee LT 4V* IMPRESSION: [employer] Other XR knee LT 4V* Mild tricompartmenta l degenerative changes are noted. [employer] Other XR knee LT 4V* No acute bony injury. [employer] Other XR knee LT 4V* Impression dictated by: Jasen Starkey M.D.04/04/2022 12:53 PM [employer] Other XR knee LT 4V* Dictation Location: [facility]-04 [employer] Other XR knee LT 4V* Transcribed By: PWS 04/04/22 1253 [employer] Other XR knee LT 4V* Dictated By: Jasen Starkey II, MD 04/04/22 1249 [employer] Other XR knee LT 4V* Signed By: [employer] Other XR knee LT 4V* 04/04/22 1253 [employer] Other CARDIAC JASEN ADMITon 021 CK [Catalytic activity/Vol] 114 U/L Normal 30-135 [facility] Comment on above: Performed By: #### B NADINE, CMADM #### [facility] [address] [place] [address] Dr. Amy Cantu CK.MB [Mass/Vol] 0.95 ng/mL Normal <=2.37 [facility] Comment on above: Performed By: #### B NADINE, CMADM #### [facility] [address] [place] [address] Dr. Amy Cantu HSTROP 6.1 pg/mL Normal 4.0-35.5 [facility] Comment on above: Result Comment: CUT- OFF POINTS HAVE BEEN ESTABLISHED BASED ON THE FOURTH UNIVERSAL DEFINITIONS OF MYOCARDIAL INFARCTION. THE UPPER REFERENCE LIMIT (URL) OF TROPONIN, DEFINED THE 99TH PERCENTILE OF cTnI DISTRIBUTION IN A REFERENCE POPULATION, HAS BEEN CONFIRMED THE DECISION THRESHOLD FOR MO DIAGNOSIS. Performed By: #### B NADINE, CMADM #### [facility] [address] [place] [address] Dr. Amy Cantu JUEV 43.0 ng/mL Normal <=61.5 [facility] Comment on above: Performed By: #### B NADINE, CMADM #### [facility] [address] [place] [address] Dr. Amy Cantu CBC AUTO DIFFon 06-05-2021 BASO # 0.1 103/ul Normal 0.0-0.1 [facility] Comment on above: Performed By: #### C BC #### [facility] [address] [place] [address] [address] Amy Cantu Basophils/100 WBC (Bld) 0.9 % Normal 0.2-2.0 [facility] Comment on above: Performed By: #### C BC #### [facility] [address] [place] [address] [address] Amy Cantu EO # 0.2 103/ul Normal 0.0-0.7 [facility] Comment on above: Performed By: #### C BC #### [facility] [address] [place] [address] [address] Amy Cantu Eosinophils/100 WBC (Bld) 3.1 % Normal 0.9-7.0 [facility] Comment on above: Performed By: #### C BC #### [facility] [address] [place] [address] Dr. Amy Cantu Erythrocyte distribution width (RBC) [Ratio] 16.8 % Critically high 11.0-15.0 [facility] Comment on above: Performed By: #### C BC #### [facility] [address] [place] [address] Dr. Amy Cantu Hematocrit (Bld) [Volume fraction] 32.1 % Critically low 36.0-48.0 [facility] Comment on above: Performed By: #### C BC #### [facility] [address] [place] [address] Dr. Amy Cantu Hemoglobin (Bld) [Mass/Vol] 9.6 g/dL Critically low 12.0-16.0 [facility] Comment on above: Performed By: #### C BC #### [facility] [address] [place] [address] Dr. Amy Cantu IG # 0.03 10e3/ul Normal 0.00-0.03 [facility] Comment on above: Performed By: #### C BC #### [facility] [address] [place] [address] Dr. Amy Cantu IG % 0.5 % Normal 0.0-0.5 [facility] Comment on above: Performed By: #### C BC #### [facility] [address] [address] [address] Amy Cantu LYMPH # 1.8 103/ul Normal 1.2-3.8 [facility] Comment on above: Performed By: #### C BC #### [facility] [address] [place] [address] Dr. Amy Cantu Lymphocytes/100 WBC (Bld) 28.5 % Normal 20.5-60.0 [facility] Comment on above: Performed By: #### C BC #### [facility] [address] [place] [address] Dr. Amy Cantu MANUAL DIFF REQ NO Normal [facility] Comment on above: Performed By: #### C BC #### [facility] [address] [place] [address] Dr. Amy Canut MCH (RBC) [Entitic mass] 23.3 pg Critically low 26.7-34.0 [facility] Comment on above: Performed By: #### C BC #### [facility] [address] [place] [address] Dr. Amy Cantu MCHC (RBC) [Mass/Vol] 29.9 g/dL Normal 29.9-35.2 [facility] Comment on above: Performed By: #### C BC #### [facility] [address] [place] [address] Dr. Amy Cantu MCV (RBC) [Entitic vol] 77.9 fL Critically low 81.0-99.0 [facility] Comment on above: Performed By: #### C BC #### [facility] [address] [place] [address] Dr. Amy Cantu MONO # 0.7 103/ul Normal 0.3-0.8 [facility] Comment on above: Performed By: #### C BC #### [facility] [address] [place] [address] Dr. Amy Cantu Monocytes/100 WBC (Bld) 11.3 % Normal 1.7-12.0 [facility] Comment on above: Performed By: #### C BC #### [facility] [address] [place] [address] Dr. Amy Cantu NEUT # 3.6 103/ul Normal 1.4-6.5 [facility] Comment on above: Performed By: #### C BC #### [facility] [address] [address] [address] Amy Cantu Neutrophils/100 WBC (Bld) 55.7 % Normal 43.0-75.0 [facility] Comment on above: Performed By: #### C BC #### [facility] [address] [place] [address] Dr. Amy Cantu Platelet mean volume (Bld) [Entitic vol] 9.5 fL Normal 9.5-13.5 [facility] Comment on above: Performed By: #### C BC #### [facility] [address] [place] [address] Dr. Amy Cantu PLT 396 103/ul Normal 150-450 [facility] Comment on above: Performed By: #### C BC #### [facility] [address] [place] [address] Dr. Amy Cantu RBC 4.12 106/ul Critically low 4.20-5.40 [facility] Comment on above: Performed By: #### C BC #### [facility] [address] [place] [address] Dr. Amy Cantu WBC 6.5 103/ul Normal 4.0-11.0 [facility] Comment on above: Performed By: #### C BC #### [facility] [address] [place] [address] Dr. Amy Cantu [facility]on SARS-CoV-2 (COVID-19) RNA MAYRA+probe Ql (Unsp spec) Not detected Normal NOT DETECTED [facility] Comment on above: Result Comment: This test is not yet approved or cleared by the [place] FDA. When there are no FDA-approved or cleared tests available, and other criteria are met, FDA can make tests available under an emergency access mechanism called an Emergency Use Authorization (EUA). The EUA for this test is supported by the Shelter Director of Health and Human Service's (HHS's) declaration [...] By: #### C VDTBH #### [facility] [address] [place] [address] Dr. Amy Cantu D-DIMERon 06-05-2021 D-DIMER 0.81 mg/L FEU Critically high 0.19-0.50 [facility] Comment on above: Performed By: #### L BCFSH #### [facility] [address] [place] [address] Bassam Slater D-DIMER COMMENTS SEE BELOW Normal [facility] Comment on above: Result Comment: [...] and generalized hospitalization. Performed By: #### L BCFSH #### [facility] [address] [place] [address] Bassam Slater PROF CHEM 8 (BAS METB)on Anion gap [Moles/Vol] 9.1 mmol/L Normal [facility] Comment on above: Performed By: #### B MP, CMADM #### [facility] [address] [place] [address] Dr. Amy Cantu Calcium [Mass/Vol] 9.0 mg/dL Normal 8.4-10.2 [facility] Comment on above: Performed By: #### B NADINE, CMADM #### [facility] [address] [address] [address] Amy Cantu Chloride [Moles/Vol] 103 mmol/L Normal 98-107 [facility] Comment on above: Performed By: #### B NADINE, CMADM #### [facility] [address] [address] [address] Amy Cantu CO2 [Moles/Vol] 26.7 mmol/L Normal 22.0-30.0 [facility] Comment on above: Performed By: #### B NADINE, CMADM #### [facility] [address] [place] [address] Dr. Amy Cantu Creatinine [Mass/Vol] 0.99 mg/dL Normal 0.52-1.04 [facility] Comment on above: Performed By: #### B NADINE, CMADM #### [facility] [address] [address] [address] Amy Cantu EGFR-AF NORWEGIAN >60 Normal >=60 [facility] Comment on above: Performed By: #### B NADINE, EDWINDM #### [facility] [address] [place] [address] Dr. Amy Cantu EGFR-NON AF NORWEGIAN =60 Normal >=60 [facility] Comment on above: Performed By: #### B NADINE, CMADM #### [facility] [address] [address] [address] Amy Cantu Glucose [Mass/Vol] 135 mg/dL Critically high 74-106 [facility] Comment on above: Performed By: #### B NADINE, CMADM #### [facility] [address] [address] [address] Amy Cantu Potassium [Moles/Vol] 3.8 mmol/L Normal 3.4-5.0 [facility] Comment on above: Performed By: #### B NADINE, CMADM #### [facility] [address] [place] [address] Dr. Amy Cantu Sodium [Moles/Vol] 135 mmol/L Critically low 137-145 [facility] Comment on above: Performed By: #### B EDWIN MCCOYDM #### [facility] [address] [place] [address] Dr. Amy Cantu Urea nitrogen [Mass/Vol] 17.0 mg/dL Normal 7.0-17.0 [facility] Comment on above: Performed By: #### B EDWIN MCCOYDM #### [facility] [address] [place] [address] Dr. Amy Cantu Urea nitrogen/Creatinine [Mass ratio] 17.2 mg/mg Normal [facility] Comment on above: Performed By: #### B EDWIN MCCOYDM #### [facility] [address] [place] [address] Dr. Amy Cantu Covid-19 PCR ([facility])on 05-02 SARS-CoV-2 (COVID-19) RNA MAYRA+probe Ql (Unsp spec) Not detected Normal NOT DETECTED [facility] Comment on above: Result Comment: This test is not yet approved or cleared by the [place] FDA. When there are no FDA-approved or cleared tests available, and other criteria are met, FDA can make tests available under an emergency access mechanism called an Emergency Use Authorization (EUA). The EUA for this test is supported by the Shelter Director of Health and Human Service's (HHS's) declaration [...] By: #### C VDTBH #### [facility] [address] [place] [address] Dr. Amy Cantu US PELVIS TRANSVAGon 021 US PELVIS TRANSVAG EXAMINATION: US PELV IS TRANSVAG HISTORY: Excessive and frequent menstruation COMPARISON: [...] by: ERON GARCIA Date: 2020-08-19 15:17 Normal [facility] FSHon 07-27-2020 FSH 4.6 mIU/mL Normal [facility] Comment on above: Result Comment: Adul t Female: Follicular phase 3.5 - 12.5 Ovulation phase 4.7 - 21.5 Luteal phase 1.7 - 7.7 Postmenopausal 25.8 - 134.8 Performed By: #### L BCFSH #### [facility] [address] [place] [address] Bassam Slater LUTEINIZING HORMONE (LH)on 0 07-27-2020 LH 7.8 mIU/mL Normal [facility] Comment on above: Result Comment: Adul t Female: Follicular phase 2.4 - 12.6 Ovulation phase 14.0 - 95.6 Luteal phase 1.0 - 11.4 Postmenopausal 7.7 - 58.5 Performed By: #### L BCFS #### [facility] [address] [place] [address] Bassam Slater PAP ACOG PANEL 2: 30 to 65on 07-27-2020 . . Normal [facility] Comment on above: Result Comment: Perf ormed at: WB Performed By: #### [id number] #### [facility] [address] [place] [address] Bassam Slater Age Gdln ACOG Testing 30-65 Normal [facility] Comment on above: Performed By: #### [id number] #### [facility] [address] [place] [address] Bassam Slater DIAGNOSIS: Comment Normal [facility] Comment on above: Result Comment: NEGA TIVE FOR INTRAEPITHELIAL LESION OR MALIGNANCY. Performed at: WB Performed By: #### [id number] #### [facility] [address] [place] [address] Bassam Nohemy HPV Aptima Negative Normal Negative [facility] Comment on above: Result Comment: This nucleic acid amplification test detects fourteen high-risk HPV types (16,18,31,33,35,39,45,51,52,56,58,59,66,68) without differentiation. Performed at: =G Performed By: #### [id number] #### [facility] [address] [place] [address] Bassam Nohemy Methodology: Comment Normal [facility] Comment on above: Result Comment: This liquid based ThinPrep(R) pap test was screened with the use of an image guided system. Performed at: WB Performed By: #### [id number] #### [facility] [address] [place] [address] Bassam Nohemy Note: Comment Normal [facility] Comment on above: Result Comment: The Pap smear is a screening test designed to aid in the detection of premalignant and malignant conditions of the uterine cervix. It is not a diagnostic procedure and should not be used as the sole means of detecting cervical cancer. Both false-positive and false-negative reports do occur. . Performed at: WB Performed By: #### [id number] #### [facility] [address] [place] [address] Bassam Nohemy Performed by: Comment Normal [facility] Comment on above: Result Comment: Radha Cesar, Administrative Tech (ASCP) Performed at: WB Performed By: #### [id number] #### [facility] [address] [place] [address] Bassam Nohemy Specimen adequacy: Comment Normal [facility] Comment on above: Result Comment: Sati sfactory for evaluation. Endocervical and/or squamous metaplastic cells (endocervical component) are present. Performed at: WB Performed By: #### [id number] #### [facility] [address] [address] Bassam Nohemy CBC AUTO DIFFon 07-26-2020 BASO # 0.1 103/ul Normal 0.0-0.1 [facility] Comment on above: Performed By: #### L BCFS #### [facility] [address] [id number] Bassammalina Slater Basophils/100 WBC (Bld) 1.0 % Normal 0.2-2.0 [facility] Comment on above: Performed By: #### L BCFSH #### [facility] [address] [place], [place] [id number] Bassam Nohemy EO # 0.2 103/ul Normal 0.0-0.7 [facility] Comment on above: Performed By: #### L BCFSH #### [facility] [address] [place], [place] [id number] Bassam Slater Eosinophils/100 WBC (Bld) 2.6 % Normal 0.9-7.0 [facility] Comment on above: Performed By: #### L BCFSH #### [facility] [address] [place], [place] [id number] Bassammalina Slater Erythrocyte distribution width (RBC) [Ratio] 16.3 % Critically high 11.0-15.0 [facility] Comment on above: Performed By: #### L BCFSH #### [facility] [address] [id number] Bassammalina Slater Hematocrit (Bld) [Volume fraction] 38.5 % Normal 36.0-48.0 [facility] Comment on above: Performed By: #### L BCFSH #### [facility] [address] [id number] Bassam Nohemy Hemoglobin (Bld) [Mass/Vol] 12.1 g/dL Normal 12.0-16.0 [facility] Comment on above: Performed By: #### L BCFS #### [facility] [address] [place] [address] Bassammalina Slater IG # 0.01 10e3/ul Normal 0.00-0.03 [facility] Comment on above: Performed By: #### L BCFS #### [facility] [address] [place] [address] Bassam Nohemy IG % 0.1 % Normal 0.0-0.5 [facility] Comment on above: Performed By: #### L BCFS #### [facility] [address] [place] [address] Bassam Nohemy LYMPH # 2.6 103/ul Normal 1.2-3.8 [facility] Comment on above: Performed By: #### L BCFS #### [facility] [address] [place] [address] Bassam Slater Lymphocytes/100 WBC (Bld) 31.8 % Normal 20.5-60.0 [facility] Comment on above: Performed By: #### L BCFS #### [facility] [address] [place], [place] [id number] Bassam Slater MANUAL DIFF REQ NO Normal [facility] Comment on above: Performed By: #### L BCFS #### [facility] [address] [place], [place] [id number] Bassammalina Slater MCH (RBC) [Entitic mass] 25.4 pg Critically low 26.7-34.0 [facility] Comment on above: Performed By: #### L BCFS #### [facility] [address] [place] [address] Bassammalina Slater MCHC (RBC) [Mass/Vol] 31.4 g/dL Normal 29.9-35.2 [facility] Comment on above: Performed By: #### L BCFS #### [facility] [address] [place] [address] Bassammalina Slater MCV (RBC) [Entitic vol] 80.9 fL Critically low 81.0-99.0 [facility] Comment on above: Performed By: #### L [facility] #### [facility] [address] [place], [place] [id number] Bassam Nohemy MONO # 0.5 103/ul Normal 0.3-0.8 [facility] Comment on above: Performed By: #### L [facility] #### [facility] [address] [place], [place] [id number] Bassam Nohemy Monocytes/100 WBC (Bld) 5.8 % Normal 1.7-12.0 [facility] Comment on above: Performed By: #### L [facility] #### [facility] [address] [place], [place] [id number] Bassam Nohemy NEUT # 4.7 103/ul Normal 1.4-6.5 [facility] Comment on above: Performed By: #### L [facility] #### [facility] [address] [place], [place] [id number] Bassam Nohemy Neutrophils/100 WBC (Bld) 58.7 % Normal 43.0-75.0 [facility] Comment on above: Performed By: #### L [facility] #### [facility] [address] [place], [place] [id number] Bassammalina Leesen Platelet mean volume (Bld) [Entitic vol] 9.5 fL Normal 9.5-13.5 [facility] Comment on above: Performed By: #### L [facility] #### [facility] [address] [place], [place] [id number] Bassam Nohemy PLT 422 103/ul Normal 150-450 [facility] Comment on above: Performed By: #### L [facility] #### [facility] [address] [place], [place] [id number] Bassam Nohemy RBC 4.76 106/ul Normal 4.20-5.40 [facility] Comment on above: Performed By: #### L [facility] #### [facility] [address] [place], [place] [id number] Bassam Nohemy WBC 8.1 103/ul Normal 4.0-11.0 [facility] Comment on above: Performed By: #### L BCFSH #### [facility] [address] [place], [place] [address] Bassam Slater TSHon 07-26-2020 TSH 4.081 uIU/mL Normal 0.470-4.68 0 [facility] Comment on above: Performed By: #### T SH #### [facility] [address] [address] Bassam Slater TSH RANGE SEE BELOW Normal [facility] Comment on above: Result Comment: <0.3 4 UIU/ml HYPERTHYROID 0.34-5.60 UIU/ml EUTHYROID >5.60 UIU/ml HYPOTHYROID Performed By: #### T SH #### [facility] [address] [address] Bassam Slater Vital Signs Date Time Vital Sign Value Performing Clinician Facility 08-05-2024 16:00-0500 Body height 162.6 cm Ezequiel Jd DO Work Phone: [facility] 08-05-2024 16:00-0500 Body mass index (BMI) [Ratio] 48.47 kg/m2 Ezequiel Jd DO Work Phone: [facility] 08-05-2024 16:00-0500 Body weight 128.1 kg Ezequiel Jd DO Work Phone: [facility] 08-05-2024 16:00-0500 Diastolic blood pressure 96 mm[Hg] Ezequiel Jd DO Work Phone: [facility] 08-05-2024 16:00-0500 Heart rate 74 /min Ezequiel Jd DO Work Phone: [facility] 08-05-2024 16:00-0500 SaO2% (BldA) [Mass fraction] 98 % Ezequiel Jd DO Work Phone: [facility] 08-05-2024 16:00-0500 Systolic blood pressure 142 mm[Hg] Ezequiel Jd DO Work Phone: [facility] 07-31-2024 10:47-0500 Diastolic blood pressure 59 mm[Hg] PHYSICIAN [facility] 07-31-2024 10:47-0500 Heart rate 78 /min PHYSICIAN NO [facility] 07-31-2024 10:47-0500 Respiratory rate 16 /min PHYSICIAN NO [facility] 07-31-2024 10:47-0500 SaO2% (BldA) [Mass fraction] 97 % PHYSICIAN NO [facility] 07-31-2024 10:47-0500 Systolic blood pressure 131 mm[Hg] PHYSICIAN NO [facility] 07-31-2024 09:39-0500 Body height 162.56 cm PHYSICIAN NO [facility] 07-31-2024 09:39-0500 Body temperature 98.3 [degF] PHYSICIAN NO [facility] 07-31-2024 09:39-0500 Body weight 128.82 kg PHYSICIAN NO [facility] 04-06-2022 12:00-0400 Body height 162.56 cm Marko Portillo II Other [employer] [facility] [employer] Other 04-06-2022 12:00-0400 Body mass index (BMI) [Ratio] 46.86 kg/m2 Marko Bandar II Other [facility] Other 04-06-2022 12:00-0400 Body weight 123.83 kg Marko Portillo II Other [facility] [employer] [facility] Other 04-04-2022 13:05-0400 Body height 162.56 cm Sis Pratt Other [facility] Other 04-04-2022 13:05-0400 Body temperature 98 [degF] Sis Pratt Other [facility] Other 04-04-2022 13:05-0400 Diastolic blood pressure 81 mm[Hg] Sis Pratt Other [facility] Other 04-04-2022 13:05-0400 Respiratory rate 18 /min Sis Pratt Other [facility] [employer] [facility] Other 04-04-2022 13:05-0400 SaO2% (BldA) [Mass fraction] 100 % Sis Ludwigmond Other [facility] [employer] [facility] Other 04-04-2022 13:05-0400 Systolic blood pressure 127 mm[Hg] Sis Santa Other [facility] Other 05-11-2021 15:00-0500 Body height 162.56 cm Sis Ludwigmond Other [facility] Other 05-11-2021 15:00-0500 Body mass index (BMI) [Ratio] 46.34 kg/m2 Sis Ludwigmond Other [facility] [employer] [facility] Other 05-11-2021 15:00-0500 Body temperature 98.4 [degF] Sis Ludwigmond Other [facility] [employer] [facility] Other 05-11-2021 15:00-0500 Body weight 122.47 kg Sis Ludwigmond Other [facility] Other 05-11-2021 15:00-0500 Respiratory rate 18 /min Sis Santa Other [facility] [employer] [facility] Other 05-11-2021 15:00-0500 SaO2% (BldA) [Mass fraction] 96 % Sis Santa Other [facility] Other 05-06-2021 14:45-0400 Body height 162.56 cm Nicki England Other [facility] [employer] [facility] Other 05-06-2021 14:45-0400 Body mass index (BMI) [Ratio] 46.34 kg/m2 Nicki Vidhyanty Other [facility] [employer] [facility] Other 05-06-2021 14:45-0400 Body temperature 98.2 [degF] Nicki Vidhyanty Other [facility] [employer] [facility] Other 05-06-2021 14:45-0400 Body weight 122.47 kg Nicki Vidhyanty Other [facility] [employer] [facility] Other 05-06-2021 14:45-0400 SaO2% (BldA) [Mass fraction] 99 % Nicki Vidhyanty Other [facility] [employer] [facility] Other Encounters Encounter Date Encounter Type Care Provider Facility Start: 08-05-2024 End: 08-05-2024 Office consultation new/estab patient 60 min Ezequiel Jd DO Work Phone: [facility] Comment on above: Gutierrez's palsy (Primar y Dx); Cranial nerve disorder; Trigeminal neuralgia (CMS/HCC); Facial pain; Dry eye Start: 08-05-2024 End: 08-05-2024 ambulatory EZEQUIEL APPLE Not Available Start: 08-05-2024 End: 08-05-2024 Bamboo flowsheet Ezequiel Jd DO Work Phone: [facility] Start: 08-05-2024 End: 08-05-2024 Bamboo flowsheet Ezequiel Jd DO Work Phone: [facility] Start: 07-31-2024 End: 07-31-2024 Emergency department patient visit PHYSICIAN [facility] Work Phone: Start: 12-05-2023 End: 12-05-2023 ambulatory IRENE REID Not Available Start: 10-31-2023 End: 10-31-2023 ambulatory IRENE REID Not Available Start: 10-24-2023 End: 10-24-2023 ambulatory PHYSICIAN NO [facility] Work Phone: Start: 10-24-2023 End: 10-24-2023 Departed Referred PHYSICIAN NO [facility] Start: 09-24-2023 End: 09-24-2023 ambulatory LUCIANA THAPA Not Available Start: 05-11-2023 Telephone encounter [facility] Start: 04-19-2022 End: 04-19-2022 ambulatory Marko Portillo II Other [facility] [employer] [facility] [employer] Other Start: 04-19-2022 Office outpatient vi sit 25 minutes Marko Carlinisle II [facility] Start: 04-13-2022 End: 04-13-2022 ambulatory PHYSICIAN NO [facility] Work Phone: Start: 04-13-2022 End: 04-13-2022 Patient encounter procedure PHYSICIAN NO [facility] [address] Start: 04-07-2022 End: 04-07-2022 ambulatory Marko Bandar II Other [facility] Other Start: 04-07-2022 Telephone encounter Marko Shahle II [facility] Start: 04-06-2022 Office outpatient ne w 45 minutes Marko Premium II [facility] Start: 04-06-2022 End: 04-06-2022 ambulatory PHYSICIAN NO [facility] Work Phone: Start: 04-06-2022 End: 04-06-2022 Patient encounter procedure PHYSICIAN NO [facility] Start: 04-04-2022 Office outpatient vi sit 15 minutes Sis Pratt [facility] Start: 04-04-2022 End: 04-04-2022 ambulatory PHYSICIAN NO [facility] Other Start: 04-04-2022 End: 04-04-2022 Patient encounter procedure PHYSICIAN NO [facility] Start: 06-05-2021 End: 06-06-[address] KENNY HUERTAS Facility:[facility] Start: 05-12-2021 End: 05-12-[address] DOCTOR CEBALLOS Facility:[facility] Start: 05-11-2021 End: 05-11-2021 ambulatory Sis Pratt Other [facility] Other Start: 05-11-2021 Office outpatient vi sit 15 minutes Sis Santa [facility] Start: 05-06-2021 End: 05-06-2021 ambulatory Nicki Ginty Other [facility] Other Start: 05-06-2021 Office outpatient vi sit 15 minutes Nicki Gintbelinda [facility] Start: 10-15-[address] LUCIANA THAPA Facility :[facility] Start: 10-14-2020 Encounter for other preprocedural examination DR LUCIANA THAPA [facility] Start: 10-12-[address] LUCIANA THAPA Facility :[facility] Start: 10-07-2020 End: 10-08-[address] LUCIANA THAPA Facility:[facility] Start: 10-07-2020 End: 10-08-2020 Encounter for other preprocedural examination DR LUCIAAN THAPA Facility:[facility] Start: 08-19-2020 End: 08-20-2020 ambulatory [...] Treatment Date Care Activity Detail Author Start: 10-07-2024 End: 10-07-2024 Patient encounter procedure 10/07/2024 3:45 PM EDT Office Visit [facility] [place] [address] [place] [address] Jd Ezequiel DO [address] [place] [address] [facility] [place] Start: 08-05-2024 End: 08-05-2024 Patient encounter procedure 08/05/2024 4:00 PM EST Office Visit [facility] [address] [place] [address] Ezequiel Apple DO [address] [place], [place] [id number] Arrived [facility] Comment on above: Arrived Start: 08-05-2024 End: 08-05-2025 MR Brain WO and W contrast IV MR brain w and wo contrast routine Imaging Routine Gutierrez's palsy Cranial nerve disorder Expected: 08/05/2024, Expires: 08/05/2025 [facility] Work Phone: Comment on above: Expected: 08/05/2024 , Expires: 08/05/2025 Start: 05-09-2024 Tobacco Screening Tobacco Screening [facility] Start: 03-02-2024 Influenza vaccination Influenza Vacc ine (#1) [facility] Start: 03-02-2023 Influenza vaccination Influenza Vacc ine [facility] Start: 2013 Screening for malign ant neoplasm of breast Mammogram [facility] Start: 1994 Screening for malign ant neoplasm of cervix Pap Smear [facility] Start: 1992 DTaP,Tdap and Td Vaccines (1 - Tdap) DTaP,Tdap and Td Vaccines (1 - Tdap) [facility] Start: 11-26-1991 Adult BMI Screening Adult BMI Screen ing [facility] Start: 1985 Depression Screening Depression Scre ening [facility] Start: 1973 Screening for malign ant neoplasm of colon [facility] Patient Education Gutierrez's palsy [facility] Work Phone: Patient referral [facility] Work Phone: Payers Date Payer Category Payer Self-pay [id number] 2022 Private Health Insurance [id number] 2022 Unknown [id number] 2022 Unknown [id number] 1973 Unknown [id number] 2.16.84 [id number] 1973 Unknown [id number] 2.16.84 [id number] 1973 Unknown [id number] 2.16.84 [id number] 1973 Unknown [id number] 2.16.84 [id number] 1973 Unknown [id number] 2.16.84 [id number] 1973 Unknown [id number] 2.16.84 [id number] 1973 Unknown [id number] 2.16.84 [id number] 1973 Unknown [id number] 2.16.84 [id number] 1973 Unknown [id number] 2.16.84 [id number] 1973 Unknown [id number] 2.16.84 [id number] 1973 Unknown [id number] 2.16.84 [id number] 1973 Unknown [id number] 2.16.84 [id number] 1959 Unknown [id number] Unknown [id number] 2.16.8 [id number] Unknown [id number] 2.16.8 [id number] Social History Date Type Detail Facility Start: 05-09-2023 End: 09-24-2023 Sex Assigned At [facility] Other Start: 1975 Sex Assigned At Female [facility] Start: 05-09-2023 End: 07-31-2024 Tobacco smoking status NHIS Ex-smoker (finding) [facility] Start: 07-31-2024 Sex Female (finding) [facility] History of tobacco use Current smoker [facility] History of tobacco use Cigarette Smoker [facility] Start: 04-18-2023 End: 05-09-2023 Tobacco use and exposure Smokeless tobacco non-user [facility] Start: 05-09-2023 End: 12-05-2023 Alcoholic beverage intake Current drinker of alcohol (finding) [facility] Start: 05-09-2023 End: 09-24-2023 History of Social function [facility] Start: 04-18-2023 Alcohol Comment 1 or 2 drinks on a typical day / monthly or less [facility] Start: 1975 Sex assigned at Not on file [facility] Start: 09-13-2022 Gender identity Identifies as female gender (finding) [facility] Start: 08-05-2024 Alcohol Comment Occasional [facility] Within the past 12 months we worried whether our food would run out before we got money to buy more. Never True [facility] Start: 05-09-2023 Alcohol Comment rare [facility] NEGATED: Highlighted row [facility] Clinical Notes 05-06-2021 to 08-05-2024 Ezequiel Apple DO - 08/05/2024 4:00 PM ESTTelephone Encounter - Barbara Varma, [facility] - 05/11/2023 1:10 PM ESTTelephone Encounter - Barbara Varma, [facility] - 05/11/2023 1:10 PM EST Note Date & Type Note Facility 08-05-2024 History of Presen t illness Narrative Images from the original note were not included. No chief complaint on file. Subjective Romelia Bartlett, 48 y.o., female being seen in Neurology at the request of the ED. HPI SELF REFERRAL: Facial paresthesia - seen @ [facility] ER as well as [facility] ER The patient states 07/23 she had a headache and then the next day the cartilage on the outside of her left ear was tender and painful. She had a strange sensation when she was eating. On 07/29 she started with jolting pain behind her ear on her neck. She then had drooping of the left side of her face. She went to the ER and her symptoms resolved. She was told that she had an ear infection. She woke up , 2 days later, morning and the left side of her face is drooping. She has sensitivity in the left side of her face and ear. She states that the pain in her left ear is worse since starting the eardrops she was given. She denies difficulty swallowing. She does have difficulty eating and drinking. She is drooling and pocketing food in her cheek. She is unable to blink her left eye. She can manually shut her eye and she states that it will stay closed. Her left eye is watering. Her facial droop worsened since her ED visit. She is now slurring her words. She was given Abx and ear drops She was not given antiviral or steroid. She does not have any blisters in her ear. 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 Headache 07/23/2024 Past Surgical History: Procedure Laterality Date SECTION, LOW TRANSVERSE 1999 SECTION, LOW TRANSVERSE 2004 CHOLECYSTECTOMY 2004 DILATION AND CURETTAGE OF UTERUS 07/13/2023 HYSTERECTOMY 10/24/2023 with tubes removed OTHER SURGICAL HISTORY 2009 abscess from tooth Family History Problem Relation Name Age of Onset No Known Problems Son No Known Problems Daughter 4 daughters, healthy Social History Tobacco Use Smoking status: Former Current packs/day: 0.00 Types: Cigarettes Smokeless tobacco: Never Substance Use Topics Alcohol use: Yes Comment: Occasional Allergies: Ciprofloxacin and Vancomycin General: No fever or chills HEENT: No nasal congestion or runny nose Pulmonary: No shortness of breath or cough Cardiovascular: No chest pain or palpitations GI: No nausea or vomiting : No dysuria or hematuria Musculoskeletal: No new aches or pains or muscle weakness Infectious: no recurrent fevers or infections Dermatologic: No rashes or skin lesions Neurologic: No new headaches or dizziness Vitals: 08/05/24 1600 BP: (!) 142/96 Pulse: 74 SpO2: 98% Body mass index is 48.47 kg/m . weight: 282 lb 6.4 oz The patient was counseled to monitor their blood pressure and to follow up with PCP regarding the same. Neurologic exam: General: Normal body habitus, cooperative, pleasant Mental status: Awake, alert to person, place and time. Recent and remote memory are intact. Attention and concentration are normal. Fund of knowledge is appropriate for level of education. HEENT: NC/AT Cranial nerves: CN II: Visual vanegas full to confrontation. No loss of vision CN III, IV, : pupils equal round and reactive to light. Extraocular movements intact. No ptosis present. CN V: Facial sensation is normal. CN VII: Full and symmetric facial on the right, full left facial droop and ptosis along with Gutierrez's phenomenon CN VIII: Hearing is normal CN IX and X: Palate elevates symmetrically. CN XI: Shoulder shrug is normal bilaterally. CN XII: Tongue is midline without atrophy or fasciculation. Speech: Clear and fluent no aphasia or dysarthria Pronator drift: Negative bilateral upper extremity Coordination: Intact, no signs of dysmetria Good finger to nose and rapid alternating movements Sensory: Sensation is intact to light, temperature and vibratory touch throughout four extremities. Pinprick intact in all four extremities. Motor: LUE 5/5 RUE 5/5 LLE 5/5 RLE 5/5 Tone: Physiologic, no tremor, bradykinesia or rigidity DTR: Bilateral Biceps 2/4 Bilateral BR 2/4 Bilateral Patellar 2/4 No spasticity Gait: Normal to casual gait Romberg's Negative Review and summary of old records: Assessment/Plan Diagnoses and all orders for this visit: Gutierrez's palsy - predniSONE (Deltasone) 10 MG tablet; 6 po for 2 days 5 po for 2 days, 4 po for 2 days, 3 po for 2 days, 1 po for 2 day 1/2 po for 2 days - valACYclovir (Valtrex) 500 MG tablet; Take 1 tablet (500 mg) by mouth in the morning and 1 tablet (500 mg) before bedtime. - MR brain w and wo contrast routine; Future Cranial nerve disorder - MR brain w and wo contrast routine; Future Trigeminal neuralgia (CMS/HCC) Facial pain Dry eye 48-year-old female who has an atypical presentation but in the end it appears she has a left cranial nerve 7/Gutierrez's palsy. She has full facial droop ptosis inability to close her eye. This was about a week's progression. She started with headache and ear pain. She had some transient weakness in her face. She ended up going to the hospital and had a head CT that was nonacute. She was given some antibiotics and ear drops for otitis media and otitis externa. She never had any blisters or secretions from her ear. She then a couple of days later developed some weakness that was not very pronounced and appeared to improve some. She went to [facility] that thought maybe she might have a Gutierrez's palsy but they did not give her any further medication and told her to finish out the antibiotic and the ear drops. She got worse after that and has all of the pathognomonic features of Gutierrez's palsy. However she does have some pain on her face which may be from tugging pull on the trigeminal nerve from the facial droop however she had the pain before that so she may have some atypical trigeminal neuralgia in addition on the left side. Due the fact that both nerve seemed to have some involvement I would recommend that we get an MRI of the brain to be sure that there is no mass lesion or other that could be pressing on the nerves. We will go ahead and Start her on acyclovir and prednisone taper. She is almost finished with her antibiotics and not having any further atypical ear symptoms. The pain she is having now is due to the underlying Gutierrez's palsy. I am not sure what benefit the acyclovir in the prednisone will be since she is beyond 48 hours of the onset of the symptoms but we will go ahead and try it especially since she has as significant of a droop. She was counseled on eye care using natural tears throughout the day and using Lacri-Lube type of gel on the eye and taping it closed every night using gauze. She voiced understanding of this. We will want to try to avoid any corneal abrasions or cracking from being dry. I am hopeful she will start seeing an improvement she was counseled 80 percent of the people get 100 percent better and 20 percent get anywhere in between. Plan Patient's ER work was reviewed She had a CT scan that was unremarkable Order MRI of the brain with and without as both a trigeminal and facial nerves are involved and need to rule out any sort of mass lesion that could be compressing them We will go ahead and do 10 days of valacyclovir 500 mg b.I.d. We will go ahead and do a prednisone taper starting with 60 mg and tapering down Finish out whatever antibiotics she still has Call if she has any worsening She was counseled on the prognosis of Gutierrez's palsy The diagnosis was all discussed with the patient. All questions were answered and they agreed with the treatment plan. Patient will call if there are any new issues or questions. Pt has been fully educated on their diagnosis, treatment options, follow up plan, and return instructions Return to clinic: 6 weeks. documented in this encounter [facility] 05-11-2023 Miscellaneous Notes Formattin g of this note might be different from the original. Called patient to schedule her colonoscopy for [facility]. Unable to make contact with patient, left voicemail message for patient to call our office back. Called patient to schedule her colonoscopy with Dr. Naranjo for [facility]. Unable to make contact with patient, left voicemail message for patient to call our office back. Called patients emergency contact for unable to make contact with patient to schedule her colonoscopy with Dr. Naranjo for [facility]. Unable to make contact with patients emergency contact, left voicemail message for patients emergency contact to have patient call our office back. Called patients emergency contact for unable to make contact with patient to schedule her colonoscopy with Dr. Naranjo for [facility]. Unable to make contact with patients emergency contact, left voicemail message for patients emergency contact to have patient call our office back. Called patient and patients emergency contact to schedule her colonoscopy with Dr. Naranjo for [facility]. Unable to make contact with patient, left voicemail messages for patient to call our office back. I called the patient today 05/31/23 and left a message to call the office to schedule a colonoscopy at [facility] with Dr. Naranjo. I called Romelia and left a message to call the office to schedule her procedure at the [facility]. documented in this encounter [employer] 05-11-2023 Telephone encount er Note Called patient to schedule her colonoscopy for [facility]. Unable to make contact with patient, left voicemail message for patient to call our office back. [employer] 05-11-2023 Telephone encount er Note Called patient to schedule her colonoscopy with Dr. Naranjo for [facility]. Unable to make contact with patient, left voicemail message for patient to call our office back. [employer] 05-11-2023 Telephone encount er Note Called patients emergency contact for unable to make contact with patient to schedule her colonoscopy with Dr. Naranjo for [facility]. Unable to make contact with patients emergency contact, left voicemail message for patients emergency contact to have patient call our office back. [employer] 05-11-2023 Telephone encount er Note Called patients emergency contact for unable to make contact with patient to schedule her colonoscopy with Dr. Naranjo for [facility]. Unable to make contact with patients emergency contact, left voicemail message for patients emergency contact to have patient call our office back. [employer] 05-11-2023 Telephone encount er Note Called patient and patients emergency contact to schedule her colonoscopy with Dr. Naranjo for [facility]. Unable to make contact with patient, left voicemail messages for patient to call our office back. [facility] [employer] 05-11-2023 Telephone encount er Note I called the patient today 05/31/23 and left a message to call the office to schedule a colonoscopy at [facility] with Dr. Naranjo. [facility] [employer] 05-11-2023 Telephone encount er Note I called Romelia and left a message to call the office to schedule her procedure at the [facility]. [facility] [employer] 04-19-2022 Evaluation note Encounter Date Diagnosis Assessment [...] well. Follow-up in 6 to 8 weeks. [facility] Other 10-06-2022 Evaluation note* Encounter Date Diagnosis [...] was a meniscus tear amenable to fixation. [facility] Other 10-04-2022 Evaluation note* Encounter Date Diagnosis [...] no improvement in 5 to 7 days. [facility] Other 12-06-2021 NotePROCEDURE: CTA CHEST WO W [...] 3-D images were rendered on a separate [employer] workstation. MIP imaging is also submitted. Images [...] series 4 are not included in the [id number]. AORTA AND VASCULATURE: There is normal caliber [...] Electronically authenticated by: YOLIS WAYNE Date: 2021-06-06 00:43[facility]11-10-2021 Evaluation note* Encounter Date Diagnosis Assessment Notes Treatment Notes Treatment Clinical Notes May, Viral upper respiratory illness (ICD-10 - J06.9) [facility] Other 11-05-2021 Evaluation note* Encounter Date Diagnosis [...] increase fluids and rest, Tylenol/Motrin as directed, [place] and Flonase as directed, cool mist humidifier, throat lozenges. Advised patient that [place] contains cough suppressant and antihistamine and [...] Patient care instructions given in writting by [facility] Care At Home document [facility] Other Evaluation noteNo assessment information available [facility] Work Phone: Evaluation noteNo InformationNortConemaugh [facility] Other Evaluation note* Diagnosis Gutierrez's palsy- Primary Cranial nerve disorder Unspecified disorder of cranial nerves Trigeminal neuralgia (CMS/HCC) Trigeminal neuralgia Facial pain Headache Dry eye documented in this encounter [facility] N[facility]ative - Reported* Type Description Date Medical History chronic depression Surgical History pilonidal cyst Surgical History abscess on neck [facility] Other Hospital Discharge instructions Additional Instructions Continue to take the antibiotics prescribed for the left ear infection. Follow-up with referral to neurology tomorrow. Return here if symptoms persist or worsen as discussed.[facility] Work Phone: InstructionsNot on filedocumented in this encounter [facility] Summary Purpose Family History No Family History Records FoundNo Family History Records FoundNo Family History Records Found Advance Directives Advance Directive Response Recorded Date/ Time Advance Directives No July 15, 2021 1:08pm Advance Directive Response Recorded Date/ Time Advance Directives No July 15, 2021 12:08pm Chief Complaint and Reason for Visit Chief Complaint M25.562 M25.562 acute pain Chief Complaint Unknown Chief Complaint Admit Date stroke like symptoms July 31, 2024 9:33am Additional Source Comments INFORMATION SOURCE (unrecogn ized section and content) DATE CREATED AUTHOR 06/08/2021 [facility] DATE CREATED AUTHOR AUTHOR'S ORGANIZ ATION 08/07/2024 [facility] EPIC DATE CREATED AUTHOR AUTHOR'S ORGANIZ ATION 08/12/2024 [facility] REASON FOR VISIT (unrecogniz ed section and content) #20 ANTHONY MALIBU, H/A, SORE THROAT, COUGH, CONGESTION#21 MAROON MALIBU, COUGH, CONGESTION, H/A GETTING WORSELEFT KNEE PAINCLYDE UC LT KNEE PAIN SWELLING WXOrthopedic Office NotesF/U MRI [facility] Care Teams (unrecognized sec tion and content) Team Status: Inactive Member Role Status Dates PHYSICIAN NO FAMILY Primary Care Provider Active DOT Dimas Attending Provider Active Team Status: Active Member Role Status Dates PHYSICIAN NO FAMILY Primary Care Provider Active Team Status: Inactive Member Role Status Dates PHYSICIAN NO FAMILY Primary Care Provider Active Marko Portillo II, MD Attending Provider Active Team Status: Inactive Member Role Status Dates PHYSICIAN NO FAMILY Primary Care Provider Active Start: October 24, 2023 End: October 24, 2023 Luciana Thapa Attending Provider Active Start: Ap 2023 End: October 24, 2023 Team Status: Inactive Member Role Status Dates PHYSICIAN NO FAMILY Primary Care Provider Active Start: July 31, 2024 End: July 31, 2024 Jalyn Barboza APRN Emergency Provider Active S tart: July 31, 2024 End: July 31, 2024 [employer] Relationship Specialty Start Date End Date Ezequiel Apple DO [address] [place] [id number] Referring Physician Neurology 08/05/24 [employer] Relationship Specialty Start Date End Date Ezequiel Apple DO [address] [place] [address] Referring Physician Neurology 08/05/24 [employer] Relationship Specialty Start Date End Date No Pcp, [place] [id number] PCP - General Family Medicine 05/09/23 Goals [...] BE BASED ON THE PRIMARY CLINICAL RECORDS. [facility]. provides no warranty or guarantee of the accuracy or completeness of information in this document.
--- NOTE | 2024-08-28 15:43 | MR_ITS ---
The [address] [address] Patient Name: KONSTANTIN ROBLES MRN: [id number] date: 1975 Sex: F Assigned Patient Location: MRI Current Patient Location: MRI Accession/Order Number: [id number] Exam Date: 08/28/2024 18:02 Report Date: 08/28/2024 18:17 At the request of: EZEQUIEL APPLE DO Procedure: MR head/brain wo/w con MR head/brain wo/w con 08/28/2024 5:01 PM SIGN AND SYMPTOMS: Gutierrez's Palsy, Cranial Nerve Disorder PROTOCOL: Multiplanar multisequence MR images of the brain with and without IV contrast CONTRAST: 20 mL of intravenous Dotarem COMPARISON: 07/29/2024 FINDINGS: Extra axial spaces: Age appropriate. Hemorrhage: None. Ventricular system: Within normal limits. Basal cisterns: Within normal limits and not effaced. Cerebral parenchyma: Normal in signal. Midline shift: None.. Cerebellum: Within normal limits. Brainstem: Within normal limits. Cerebellopontine angles: Within normal limits. Internal auditory canals: There is subtle asymmetric enhancement of the mastoid, tympanic, geniculate, and labyrinthine segments of the left facial nerve which is best seen on postcontrast coronal and sagittal images. This would be better demonstrated using a skull base/internal auditory canal protocol if clinically indicated. Temporal bone structures:There is subtle asymmetric enhancement of the mastoid, tympanic, geniculate, and labyrinthine segments of the left facial nerve which is best seen on postcontrast coronal and sagittal images. This would be better demonstrated using a skull base/internal auditory canal protocol if clinically indicated. OTHER: Calvarium: Normal marrow signal. Vascular system: Satisfactory flow voids within the anterior and posterior circulation. Visualized Paranasal sinuses: Within normal limits. Visualized Orbits: Within normal limits. Visualized upper cervical spine: Within normal limits. Sella and skull base: Within normal limits. MR/MR head/brain wo/w con IMPRESSION: There is subtle asymmetric enhancement of the mastoid, tympanic, geniculate, and labyrinthine segments of the left facial nerve which is best seen on postcontrast coronal and sagittal images. This would be better demonstrated using a skull base/internal auditory canal protocol if clinically indicated. This is consistent with a history of left-sided Gutierrez's palsy. Impression dictated by: Erick Starkey M.D.08/28/2024 6:17 PM Dictation Location: [place] [address] Electronically authenticated by: [id number] Y Date: 08/28/2024 18:17
== END 2024-08-28 15:33 | disposition home or self-care (01) ==
LOC: MRI 15:32
PROVIDERS: Visit Provider Psychiatry & Neurology Neurology
DX: G51.0 Bell's palsy (principal); G52.9 Cranial nerve disorder, unspecified
CPT/HCPCS: 70553; A9575

== ENCOUNTER 2024-10-02 15:58 | Outpatient (OUT) | payer OTHER, SELFPAY ==
--- NOTE | 2024-10-02 16:01 | MR_ITS ---
The [address] [address] Patient Name: KONSTANTIN ROBLES MRN: [id number] date: 1975 Sex: F Assigned Patient Location: MRI Current Patient Location: MRI Accession/Order Number: [id number] Exam Date: 10/02/2024 18:56 Report Date: 10/02/2024 19:07 At the request of: ERMA ANDUJAR NP Procedure: MR IAC wo/w con MRI the Brain with and without contrast TECHNIQUE: Multiplanar T1 and T2-weighted imaging of the brain. Enhanced and unenhanced imaging HISTORY: Follow-up imaging. The asymmetric enhancement left facial nerve. I see requested to follow-up. COMPARISON: 08/28/2024 VENTRICLES: Unremarkable BRAIN VOLUME: Adequate volume of brain parenchyma identified. BRAIN PARENCHYMAL SIGNAL INTENSITY: Normal signal intensity of the brain parenchyma identified. BLEED: None MASS EFFECT: No mass effect DIFFUSION RESTRICTION: None GRADIENT ECHO PARENCHYMAL SIGNAL LOSS: None MIDBRAIN: The midbrain structures are unremarkable. REBEKAH: Unremarkable MEDULLA: Unremarkable INTERNAL AUDITORY CANALS: Before meals symmetrical. There are no lesion within the canal. No the lesion in the cerebellopontine angle. No vascular loop. Subtle asymmetric enhancement of left facial nerve redemonstrated with follow-up imaging. SINUSES: Unremarkable ORBITS: Grossly unremarkable MASTOIDS: Unremarkable ENHANCEMENT: No pathologic enhancement. MR/MR IAC wo/w con IMPRESSION: No acute intracranial process. Symmetric IACs. No mass within the canal or cerebellopontine angle. No vascular loop. Similar asymmetric enhancement of the left facial nerve. Consistent patient's history of Gutierrez's palsy. Impression dictated by: Wisam Ross M.D.10/02/2024 7:07 PM Dictation Location: [place] [address] Electronically authenticated by: [id number] Y Date: 10/02/2024 19:07
== END 2024-10-02 15:59 | disposition home or self-care (01) ==
LOC: MRI 15:58
PROVIDERS: Visit Provider Nurse Practitioner Family
DX: G52.9 Cranial nerve disorder, unspecified (principal); G51.0 Bell's palsy
CPT/HCPCS: 70553; A9575